=== PATIENT | male | born 1945 | race Caucasian/White ===

== ENCOUNTER 2016-08-21 17:43 | Emergency (ER) | payer MEDICARE, BC ==
--- NOTE | 2016-08-21 18:50 | EDM.PDOC ---
ED HPI GENERAL MEDICAL PROBLEM - General Chief Complaint: Gastrointestinal Problem Stated Complaint: BLACK STOOLS Time Seen by Provider: 08/21/16 17:58 Source of Information: Reports: Patient, Family, Old Records, RN Notes Reviewed History Limitations: Reports: No Limitations - History of Present Illness INITIAL COMMENTS - FREE TEXT/NARRATIVE: 71-year-old gentleman presents emergency department day complaint of black tarry stools, and he had an event approximately 3 weeks ago he states his bowel movements have returned to normal he is asymptomatic at this time - Related Data Allergies Allergy/AdvReac Type Severity Reaction Status Date / Time No Known Allergies Allergy Verified 01/05/15 18:59 Home Meds: Home Meds Betamethasone/Propylene Glyc [Diprolene 0.05%] 1 applic TP BID PRN 02/02/13 [ History] Calcium Citrate/Vitamin D3 [Calcium Citrate - Vit D Caplet] 1 tab PO BID [History] Cyanocobalamin (Vitamin B12) [Vitamin B12] 1,000 mcg SL DAILY 02/02/13 [History] Doxazosin Mesylate [Cardura] 2 mg PO DAILY 02/02/13 [History] Lovastatin 80 mg PO BEDTIME 02/02/13 [History] Metoprolol Tartrate [Lopressor] 12.5 mg PO BID 02/02/13 [History] Multivitamin [Chewable Multi Vitamin] 1 tab PO BID 02/02/13 [History] Nitroglycerin [Nitrostat] 0.4 mg SL ASDIRECTED 02/02/13 [History] PARoxetine [Paxil] 40 mg PO DAILY 02/02/13 [History] Triamcinolone Acetonide [Kenalog 0.1% Crm] 1 applic TP ASDIRECTED PRN 02/02/13 [ History] Vitamin B Complex 1 each PO DAILY 02/02/13 [History] Warfarin [Coumadin] 2.5 mg PO ASDIRECTED 02/02/13 [History] Warfarin [Coumadin] 5 mg PO DAILY 02/02/13 [History] metFORMIN [Glucophage] 1,000 mg PO BIDM 02/02/13 [History] Cholecalciferol (Vitamin D3) [Vitamin D-3] 2,000 unit PO ASDIRECTED 04/09/14 [ History] Betamethasone/Propylene Glyc [Diprolene 0.05%] 1 applic TOP BID 08/21/16 [ History] Past Medical History HEENT History: Reports: Hard of Hearing Cardiovascular History: Reports: Bypass, Hypertension Genitourinary History: Reports: Other (See Below) Other Genitourinary History: renal failure Neurological History: Reports: CVA, Neuropathy, Diabetic Psychiatric History: Reports: Depression Endocrine/Metabolic History: Reports: Diabetes, Type II - Infectious Disease History Infectious Disease History: Reports: Other (See Below) Other Infectious Disease History: unknown - Past Surgical History HEENT Surgical History: Reports: Tonsillectomy GI Surgical History: Reports: Bariatric Procedure, Hernia Repair/Other Social & Family History - Tobacco Use Smoking Status *Q: Never Smoker Second Hand Smoke Exposure: No - Caffeine Use Caffeine Use: Reports: Soda - Alcohol Use Days Per Week of Alcohol Use: 0 - Recreational Drug Use Recreational Drug Use: No ED ROS GENERAL - Review of Systems Review Of Systems: See Below Constitutional: Reports: No Symptoms Respiratory: Reports: No Symptoms Cardiovascular: Reports: No Symptoms GI/Abdominal: Reports: Black Stool : Reports: No Symptoms Musculoskeletal: Reports: No Symptoms Skin: Reports: No Symptoms ED EXAM, GI/ABD - Physical Exam Exam: See Below Exam Limited By: No Limitations General Appearance: Alert, WD/WN, No Apparent Distress GI/Abdominal: Soft, Non-Tender, No Organomegaly, No Distention, No Abnormal Bruit, No Mass Rectal (Males) Exam: Normal Exam, Normal Rectal Tone, Prostate Normal. No: Black Stool, Bloody Stool, Fecal Impaction, Hemorrhoids, Mass, Prostate Nodule, Rectal Fissure, Tenderness Course - Vital Signs Last Recorded V/S: Last Vital Signs Temp 96.8 F 08/21/16 17:59 Pulse 56 L 08/21/16 19:39 Resp 16 08/21/16 19:39 BP 153/73 H 08/21/16 19:39 Pulse Ox 97 08/21/16 19:39 - Orders/Labs/Meds Labs: Laboratory Tests 08/21/16 08/21/16 Range/Units 19:03 19:03 WBC 8.0 (4.5-11.0) K/uL RBC 4.31 (4.30-5.90) M/uL Hgb 10.2 L D (12.0-15.0) g/dL Hct 33.4 L (40.0-54.0) % MCV 78 L (80-98) fL MCH 24 L (27-31) pg MCHC 31 L (32-36) % Plt Count 243 (150-400) K/uL Neut % (Auto) 45 (36-66) % Lymph % (Auto) 40 (24-44) % [place] % (Auto) 9 H (2-6) % Eos % (Auto) 6 H (2-4) % Baso % (Auto) 1 (0-1) % PT 32.1 H (9.5-12.0) sec INR 2.93 H (0.80-1.20) Departure - Departure Time of Disposition: 20:00 Disposition: Home, Self-Care 01 Condition: good Clinical Impression: Black stools - Discharge Information Forms: ED Department Discharge Additional Instructions: Please followup with your primary care provider in the next 5-7 days for reevaluation would recommend workup for anemia with an EGD and colonoscopy in the future - Assessment/Plan Plan: Assessment Acuity = acute Site and laterality = black tarry stools Etiology = unclear etiology Manifestations = none Location of injury = home Lab values = hemoglobin low at 10.2 consistent micro-chromic anemia INR therapeutic at 2.93 occult blood diagnostic stool sample negative Plan I did review lab work and stool card results with him recommended he follow up with his primary care provider for further evaluation of his anemia recommend EGD and colonoscopy in the future Patient was in agreement with the plan all questions were answered, they were instructed to return to the emergency department or call for worsening symptoms. This note was dictated using @Pay voice recognition software please call with any questions.
[2016-08-21 19:40] VITALS: BP 153/73
== END 2016-08-21 20:20 | disposition home or self-care (01) ==
LOC: JP.ED 17:43
DX: K92.1 Melena (principal); I10 Essential (primary) hypertension; F32.9 Major depressive disorder, single episode, unspecified; E11.40 Type 2 diabetes mellitus with diabetic neuropathy, unspecified; Z79.01 Long term (current) use of anticoagulants; Z79.899 Other long term (current) drug therapy; Z98.84 Bariatric surgery status; Z98.890 Other specified postprocedural states
CPT/HCPCS: 36415; 82272; 85025; 85610; 99283; 99284

== ENCOUNTER 2016-09-12 09:32 | Day surgery (SDC) | payer MEDICARE, BC ==
[2016-09-12] MEDS ORDERED: Lactated Ringers 1,000 ML IV SCH (10:15)
[2016-09-12] MEDS ORDERED: Midazolam 1 MG/ML 2 ML SDV ONE (12:15)
[2016-09-12] MEDS ORDERED: fentaNYL 100 MCG/2 ML SDV ONE (12:15)
[2016-09-12] MEDS ORDERED: Propofol 200 MG/20 ML SDV ONE (12:15)
[2016-09-12 13:46] VITALS: BP 125/70
--- NOTE | 2016-09-13 07:21 | OR ---
DATE OF PROCEDURE: 09/12/2016 PREOPERATIVE DIAGNOSIS: History of colon polyps. POSTOPERATIVE DIAGNOSIS: Small cecal polyp, diverticulosis, history of colon polyps, poor colonoscopy prep. PROCEDURE: Colonoscopy to the cecum with biopsy resection of a small cecal polyp. SURGEON: Francisco Shelton MD. ANESTHESIA: IV anesthesia with monitored anesthesia care. INDICATIONS: This 71-year-old white male is referred for a colonoscopy because of a history of colon polyps. He is unsure when his last colonoscopic exam was performed. I counseled him for the procedure including risks and alternatives, and he gave his informed consent to proceed. DESCRIPTION OF PROCEDURE: The patient was placed in the left lateral decubitus position. IV anesthesia was administered by the Anesthesia Service. Time-out was held. A rectal exam was performed, which was unremarkable. The flexible video Olympus colonoscope was introduced through his anus, up his rectum, and out his colon all the way to the cecum. The prep was poor. Once the cecum was reached, the scope was slowly withdrawn examining the mucosa throughout. In the cecum, we saw a small polyp which was removed with a couple bites of the biopsy forceps. The scope was withdrawn further with no other lesions noted until we reached the left colon. Here and in the sigmoid colon, we saw multiple diverticula. There was no bleeding or inflammation associated with any of them. No other lesions were noted. The scope was retroflexed in the rectum with the distal rectum appearing unremarkable. The scope was straightened and removed. He tolerated the procedure well. Francisco Shelton MD /[id number] [place]
== END 2016-09-12 14:25 | disposition home or self-care (01) ==
LOC: JP.SDS 09:32
PROVIDERS: ATTEND Surgery
DX: Z12.11 Encounter for screening for malignant neoplasm of colon (principal); D12.0 Benign neoplasm of cecum; K57.30 Diverticulosis of large intestine without perforation or abscess without bleeding; I25.10 Atherosclerotic heart disease of native coronary artery without angina pectoris; I10 Essential (primary) hypertension; E11.9 Type 2 diabetes mellitus without complications; E78.5 Hyperlipidemia, unspecified; G47.33 Obstructive sleep apnea (adult) (pediatric)
CPT/HCPCS: 45380; J2250; J2704; J3010; 88305

== ENCOUNTER 2016-11-27 20:51 | Emergency (ER) | payer MEDICARE, BC ==
[2016-11-27 21:14] VITALS: BP 117/65
--- NOTE | 2016-11-27 22:09 | EDM.PDOC ---
ED HPI GENERAL MEDICAL PROBLEM - General Chief Complaint: Lower Extremity Injury/Pain Stated Complaint: L LOWER LEG PAIN Time Seen by Provider: 11/27/16 21:30 Source of Information: Reports: Patient History Limitations: Reports: No Limitations - History of Present Illness INITIAL COMMENTS - FREE TEXT/NARRATIVE: 71-year-old male has felt a somewhat firm, tender, and slightly reddened area on the back of his left medial proximal calf for the last 24 hours. He has no popliteal pain or distal edema. He is on Coumadin chronically but has not had an INR checked for 3 months. He has no other symptoms such as shortness of breath, abdominal pain, fever or chills or recent illness. There's been no trauma to the leg. Onset: Gradual (Over the past 24 hours) Location: Reports: Lower Extremity, Left Quality: Reports: Sharp (With palpation) Severity: Mild Associated Symptoms: Reports: No Other Symptoms left lower leg Pain Score (Numeric/FACES): 5 - Related Data Allergies Allergy/AdvReac Type Severity Reaction Status Date / Time No Known Allergies Allergy Verified 11/27/16 21:34 Home Meds: Home Meds Betamethasone/Propylene Glyc [Diprolene 0.05%] 1 applic TP BID PRN 02/02/13 [ History] Calcium Citrate/Vitamin D3 [Calcium Citrate - Vit D Caplet] 1 tab PO BID [History] Cyanocobalamin (Vitamin B12) [Vitamin B12] 1,000 mcg SL DAILY 02/02/13 [History] Doxazosin Mesylate [Cardura] 2 mg PO DAILY 02/02/13 [History] Lovastatin 80 mg PO BEDTIME 02/02/13 [History] Metoprolol Tartrate [Lopressor] 12.5 mg PO BID 02/02/13 [History] Multivitamin [Chewable Multi Vitamin] 1 tab PO BID 02/02/13 [History] Nitroglycerin [Nitrostat] 0.4 mg SL ASDIRECTED 02/02/13 [History] PARoxetine [Paxil] 40 mg PO DAILY 02/02/13 [History] Triamcinolone Acetonide [Kenalog 0.1% Crm] 1 applic TP ASDIRECTED PRN 02/02/13 [ History] Vitamin B Complex 1 each PO DAILY 02/02/13 [History] Warfarin [Coumadin] 2.5 mg PO ASDIRECTED 02/02/13 [History] Warfarin [Coumadin] 5 mg PO ASDIRECTED 02/02/13 [History] metFORMIN [Glucophage] 1,000 mg PO BIDM 02/02/13 [History] Cholecalciferol (Vitamin D3) [Vitamin D-3] 2,000 unit PO ASDIRECTED 04/09/14 [ History] Betamethasone/Propylene Glyc [Diprolene 0.05%] 1 applic TOP BID 08/21/16 [ History] Aspirin [Children's Aspirin] 81 mg PO DAILY 09/03/16 [History] Past Medical History HEENT History: Reports: Hard of Hearing Cardiovascular History: Reports: Bypass, High Cholesterol, Hypertension Respiratory History: Reports: None Gastrointestinal History: Reports: Colon Polyp Genitourinary History: Reports: None Other Genitourinary History: renal failure Musculoskeletal History: Reports: Arthritis Neurological History: Reports: CVA, Neuropathy, Diabetic Psychiatric History: Reports: Depression Endocrine/Metabolic History: Reports: Diabetes, Type II Hematologic History: Reports: B12 Deficiency Immunologic History: Reports: None Oncologic (Cancer) History: Reports: None Dermatologic History: Reports: None - Infectious Disease History Infectious Disease History: Reports: None Other Infectious Disease History: unknown - Past Surgical History Head Surgeries/Procedures: Reports: None HEENT Surgical History: Reports: Tonsillectomy Cardiovascular Surgical History: Reports: Coronary Artery Bypass Respiratory Surgical History: Reports: None GI Surgical History: Reports: Bariatric Procedure, Colonoscopy, Hernia Repair/ Other Male Surgical History: Reports: None Endocrine Surgical History: Reports: None Neurological Surgical History: Reports: None Musculoskeletal Surgical History: Reports: Knee Replacement Oncologic Surgical History: Reports: None Dermatological Surgical History: Reports: None Social & Family History - Tobacco Use Smoking Status *Q: Never Smoker Second Hand Smoke Exposure: No - Caffeine Use Caffeine Use: Reports: Soda - Alcohol Use Days Per Week of Alcohol Use: 0 - Recreational Drug Use Recreational Drug Use: No Review of Systems - Review of Systems Review Of Systems: See Below Constitutional: Denies: Fever Mouth/Throat: Denies: Bleeding Respiratory: Denies: Shortness of Breath Cardiovascular: Denies: Chest Pain, Palpitations Genitourinary: Denies: Hematuria Neurological: Reports: No Symptoms Psychiatric: Reports: No Symptoms ED EXAM, GENERAL - Physical Exam Exam: See Below Exam Limited By: No Limitations General Appearance: Alert, No Apparent Distress Respiratory/Chest: No Respiratory Distress Extremities: Other (Exam was otherwise limited to the lower extremities. The posterior lower legs were asymmetric with a slight increased diameter of the proximal calf on the left side. The ankles and feet were symmetric. On palpation there was a firmness and tenderness around 3 x 2 cm and slightly reddened area on the proximal medial left calf.) Course - Vital Signs Last Recorded V/S: Last Vital Signs Temp 96.7 F 11/27/16 21:13 Pulse 64 11/27/16 21:13 Resp 16 11/27/16 21:13 BP 117/65 11/27/16 21:13 Pulse Ox 99 11/27/16 21:13 - Orders/Labs/Meds Labs: Laboratory Tests 11/27/16 Range/Units 22:05 PT 55.3 H (9.5-12.0) sec INR 4.84 H* (0.80-1.20) - Re-Assessments/Exams Free Text/Narrative Re-Assessment/Exam: 11/27/16 22:08 An INR was obtained. Departure - Departure Time of Disposition: 23:01 Disposition: Home, Self-Care 01 Condition: Good Clinical Impression: Supratherapeutic INR, Superficial thrombophlebitis of left leg - Discharge Information Instructions: Prothrombin Time, International Normalized Ratio Test, Phlebitis , [id number] Referrals: Oseas Mckeon MD [Primary Care Provider] - Forms: ED Department Discharge Care Plan Goals: Return tomorrow morning for an ultrasound of the left leg, followed by a visit to the Coumadin clinic. Do not take any more Coumadin until you are instructed by the Coumadin clinic.
== END 2016-11-27 23:00 | disposition home or self-care (01) ==
LOC: JP.ED 20:51
DX: I80.02 Phlebitis and thrombophlebitis of superficial vessels of left lower extremity (principal); I10 Essential (primary) hypertension; E78.00 Pure hypercholesterolemia, unspecified; M19.90 Unspecified osteoarthritis, unspecified site; E11.40 Type 2 diabetes mellitus with diabetic neuropathy, unspecified; F32.9 Major depressive disorder, single episode, unspecified; Z95.1 Presence of aortocoronary bypass graft; Z96.659 Presence of unspecified artificial knee joint; Z98.890 Other specified postprocedural states; Z79.01 Long term (current) use of anticoagulants; Z79.82 Long term (current) use of aspirin; Z79.84 Long term (current) use of oral hypoglycemic drugs; Z79.899 Other long term (current) drug therapy
CPT/HCPCS: 36415; 85610; 99284

== ENCOUNTER 2016-12-01 01:22 | Emergency (ER) | payer MEDICARE, BC ==
--- NOTE | 2016-12-01 02:27 | EDM.PDOC ---
ED HPI GENERAL MEDICAL PROBLEM - General Chief Complaint: Lower Extremity Injury/Pain Stated Complaint: LEFT LEG PAIN Time Seen by Provider: 12/01/16 01:49 Source of Information: Reports: Patient, Old Records, RN Notes Reviewed History Limitations: Reports: No Limitations - History of Present Illness INITIAL COMMENTS - FREE TEXT/NARRATIVE: 71 year old male with hx of diabetes type 2, CAD, s/p CABG and hx of CVA taking ASA, coumadin,metoprolol, metformin. Earlier this week with painful swelling in left lower leg. Seen in ED with diagnosis of probable hematoma of left lower leg confirmed by Ultrasound the next day. His INR was supratherapeutic at 4. He was asked to hold his coumadin. In INR clinic yesterday, INR was still elevated over 6. He has no other bleeding in stool or urine. Comes to ED tonite concerned that his lower leg is more swollen with more bruising into left ankle area. This area is swollen but not painful. The leg remains cool without redness or heat. He otherwise is feeling well without fever, chills, chest pain or shortness of breath. He has a planned INR clinic coming up this coming Saturday , in 2 days. Duration: Getting Worse Location: Reports: Lower Extremity, Left Quality: Reports: Dull, Pressure Severity: Mild Improves with: Reports: Heat Therapy, Other (elevation) Associated Symptoms: Reports: No Other Symptoms left leg Pain Score (Numeric/FACES): 5 - Related Data Allergies Allergy/AdvReac Type Severity Reaction Status Date / Time No Known Allergies Allergy Verified 11/27/16 21:34 Home Meds: Home Meds Calcium Citrate/Vitamin D3 [Calcium Citrate - Vit D Caplet] 1 tab PO BID [History] Cyanocobalamin (Vitamin B12) [Vitamin B12] 1,000 mcg SL DAILY 02/02/13 [History] Doxazosin Mesylate [Cardura] 2 mg PO DAILY 02/02/13 [History] Lovastatin 80 mg PO BEDTIME 02/02/13 [History] Multivitamin [Chewable Multi Vitamin] 1 tab PO BID 02/02/13 [History] Nitroglycerin [Nitrostat] 0.4 mg SL ASDIRECTED 02/02/13 [History] PARoxetine [Paxil] 40 mg PO DAILY 02/02/13 [History] Triamcinolone Acetonide [Kenalog 0.1% Crm] 1 applic TP ASDIRECTED PRN 02/02/13 [ History] Vitamin B Complex 1 each PO DAILY 02/02/13 [History] Warfarin [Coumadin] 2.5 mg PO ASDIRECTED 02/02/13 [History] Warfarin [Coumadin] 5 mg PO ASDIRECTED 02/02/13 [History] metFORMIN [Glucophage] 1,000 mg PO BIDM 02/02/13 [History] Cholecalciferol (Vitamin D3) [Vitamin D-3] 2,000 unit PO ASDIRECTED 04/09/14 [ History] Betamethasone/Propylene Glyc [Diprolene 0.05%] 1 applic TOP BID 08/21/16 [ History] Aspirin [Children's Aspirin] 81 mg PO DAILY 09/03/16 [History] Metoprolol Tartrate [Metoprolol Tartrate] 12.5 mg PO BID 12/01/16 [History] Past Medical History HEENT History: Reports: Hard of Hearing Cardiovascular History: Reports: Bypass, High Cholesterol, Hypertension Respiratory History: Reports: None Gastrointestinal History: Reports: Colon Polyp Genitourinary History: Reports: None Other Genitourinary History: renal failure Musculoskeletal History: Reports: Arthritis Neurological History: Reports: CVA, Neuropathy, Diabetic Psychiatric History: Reports: Depression Endocrine/Metabolic History: Reports: Diabetes, Type II Hematologic History: Reports: B12 Deficiency Immunologic History: Reports: None Oncologic (Cancer) History: Reports: None Dermatologic History: Reports: None - Infectious Disease History Infectious Disease History: Reports: None Other Infectious Disease History: unknown - Past Surgical History Head Surgeries/Procedures: Reports: None HEENT Surgical History: Reports: Tonsillectomy Cardiovascular Surgical History: Reports: Coronary Artery Bypass Respiratory Surgical History: Reports: None GI Surgical History: Reports: Bariatric Procedure, Colonoscopy, Hernia Repair/ Other Male Surgical History: Reports: None Endocrine Surgical History: Reports: None Neurological Surgical History: Reports: None Musculoskeletal Surgical History: Reports: Knee Replacement Oncologic Surgical History: Reports: None Dermatological Surgical History: Reports: None Social & Family History - Tobacco Use Smoking Status *Q: Never Smoker Second Hand Smoke Exposure: No - Caffeine Use Caffeine Use: Reports: None - Alcohol Use Days Per Week of Alcohol Use: 0 - Recreational Drug Use Recreational Drug Use: No Review of Systems - Review of Systems Review Of Systems: See Below Constitutional: Reports: No Symptoms Respiratory: Reports: No Symptoms Cardiovascular: Reports: No Symptoms GI/Abdominal: Reports: No Symptoms Musculoskeletal: Reports: Leg Pain, Other (swelling of lower leg with bruising) Skin: Reports: Bruising Neurological: Reports: No Symptoms Psychiatric: Reports: No Symptoms ED EXAM, GENERAL - Physical Exam Exam: See Below Exam Limited By: No Limitations General Appearance: Alert, No Apparent Distress Respiratory/Chest: No Respiratory Distress, Lungs Clear, Normal Breath Sounds Cardiovascular: Other (sounds like bigeminy) GI/Abdominal: Normal Bowel Sounds, Soft Extremities: Other (area of tenderness with some swelling on back of calf. Area of bruising into back of knee with cool bruising into lower ankle. increased edema in lower leg, non-pitting. Pulses equal.) Neurological: Alert, Oriented, CN II-XII Intact Psychiatric: Normal Affect, Normal Mood Course - Vital Signs Last Recorded V/S: Last Vital Signs Temp 35.7 C 12/01/16 01:42 Pulse 74 12/01/16 01:42 Resp 16 12/01/16 01:42 BP 137/74 12/01/16 01:42 Pulse Ox 100 12/01/16 01:42 - Re-Assessments/Exams Free Text/Narrative Re-Assessment/Exam: 71 year old male presents to ED with increased swelling in left lower leg with a known hx of hematoma, likely traumatic with supratherapeutic INR. Exam is showing some increased lower leg edema likely due to the hematoma breakdown, with migration of swelling due to gravity. There is no evidence of infection. 12/01/16 02:35 Departure - Departure Time of Disposition: 02:31 Disposition: Home, Self-Care 01 Condition: Good Clinical Impression: Supratherapeutic INR Leg hematoma Qualifiers: Encounter type: subsequent encounter Laterality: left Qualified Code(s): S80.12XD - Contusion of left lower leg, subsequent encounter - Discharge Information Referrals: Oseas Mckeon MD [Primary Care Provider] - Additional Instructions: Continue to elevate leg as able. Plan to be seen in INR as scheduled. Continue to hold the coumadin for now.
[2016-12-01 02:52] VITALS: BP 120/70
== END 2016-12-01 02:10 | disposition home or self-care (01) ==
LOC: JP.ED 01:22
DX: S80.12XD Contusion of left lower leg, subsequent encounter (principal); R79.1 Abnormal coagulation profile; E78.00 Pure hypercholesterolemia, unspecified; I10 Essential (primary) hypertension; I25.10 Atherosclerotic heart disease of native coronary artery without angina pectoris; E11.40 Type 2 diabetes mellitus with diabetic neuropathy, unspecified; Z86.73 Personal history of transient ischemic attack (TIA), and cerebral infarction without residual deficits; Z95.1 Presence of aortocoronary bypass graft; Z98.890 Other specified postprocedural states; Z98.84 Bariatric surgery status; Z96.659 Presence of unspecified artificial knee joint; Z79.82 Long term (current) use of aspirin; Z79.01 Long term (current) use of anticoagulants; Z79.899 Other long term (current) drug therapy; Z79.84 Long term (current) use of oral hypoglycemic drugs; X58.XXXD Exposure to other specified factors, subsequent encounter
CPT/HCPCS: 99283

== ENCOUNTER 2016-12-03 12:52 | Emergency (ER) | payer MEDICARE, BC ==
[2016-12-03 13:09] VITALS: BP 88/55
--- NOTE | 2016-12-03 13:25 | EDM.PDOC ---
ED HPI GENERAL MEDICAL PROBLEM - General Chief Complaint: Neuro Symptoms/Deficits Stated Complaint: BROUGHT FROM THE CLINIC Time Seen by Provider: 12/03/16 13:15 Source of Information: Reports: Patient, Provider, Other (Friend) - History of Present Illness INITIAL COMMENTS - FREE TEXT/NARRATIVE: 71-year-old male went in the clinic today to recheck a hematoma that has developed on his left lower leg, it's tender and bruised and he was told that it likely will just have to resolve which made him very anxious. He was complaining of a significant headache and his friend that he was confused so he sent over to the emergency room for a CT scan of his head. He is not complaining of any peripheral weakness. He is very anxious, hyperventilating with an O2 saturation of 100%. No nausea or vomiting. His INR is normalized and no longer hypertherapeutic. He is very anxious because does have a history of a previous stroke, is somewhat tearful and says "I don't want another one". Severity: Moderate Associated Symptoms: Reports: Confusion, Malaise. Denies: Chest Pain, Shortness of Breath Headache Pain Score (Numeric/FACES): 8 - Related Data Allergies Allergy/AdvReac Type Severity Reaction Status Date / Time No Known Allergies Allergy Verified 11/27/16 21:34 Home Meds: Home Meds Calcium Citrate/Vitamin D3 [Calcium Citrate - Vit D Caplet] 1 tab PO BID [History] Cyanocobalamin (Vitamin B12) [Vitamin B12] 1,000 mcg SL DAILY 02/02/13 [History] Doxazosin Mesylate [Cardura] 2 mg PO DAILY 02/02/13 [History] Lovastatin 80 mg PO BEDTIME 02/02/13 [History] Multivitamin [Chewable Multi Vitamin] 1 tab PO BID 02/02/13 [History] Nitroglycerin [Nitrostat] 0.4 mg SL ASDIRECTED 02/02/13 [History] PARoxetine [Paxil] 40 mg PO DAILY 02/02/13 [History] Triamcinolone Acetonide [Kenalog 0.1% Crm] 1 applic TP ASDIRECTED PRN 02/02/13 [ History] Vitamin B Complex 1 each PO DAILY 02/02/13 [History] Warfarin [Coumadin] 2.5 mg PO ASDIRECTED 02/02/13 [History] Warfarin [Coumadin] 5 mg PO ASDIRECTED 02/02/13 [History] metFORMIN [Glucophage] 1,000 mg PO BIDM 02/02/13 [History] Cholecalciferol (Vitamin D3) [Vitamin D-3] 2,000 unit PO ASDIRECTED 04/09/14 [ History] Betamethasone/Propylene Glyc [Diprolene 0.05%] 1 applic TOP BID 08/21/16 [ History] Aspirin [Children's Aspirin] 81 mg PO DAILY 09/03/16 [History] Metoprolol Tartrate [Metoprolol Tartrate] 12.5 mg PO BID 12/01/16 [History] Past Medical History HEENT History: Reports: Hard of Hearing Cardiovascular History: Reports: Bypass, High Cholesterol, Hypertension Respiratory History: Reports: None Gastrointestinal History: Reports: Colon Polyp Genitourinary History: Reports: None Other Genitourinary History: renal failure Musculoskeletal History: Reports: Arthritis Neurological History: Reports: CVA, Neuropathy, Diabetic, TIA Psychiatric History: Reports: Depression Endocrine/Metabolic History: Reports: Diabetes, Type II Hematologic History: Reports: B12 Deficiency Immunologic History: Reports: None Oncologic (Cancer) History: Reports: None Dermatologic History: Reports: None - Infectious Disease History Infectious Disease History: Reports: None Other Infectious Disease History: unknown - Past Surgical History Head Surgeries/Procedures: Reports: None HEENT Surgical History: Reports: Tonsillectomy Cardiovascular Surgical History: Reports: Coronary Artery Bypass Respiratory Surgical History: Reports: None GI Surgical History: Reports: Bariatric Procedure, Colonoscopy, Hernia Repair/ Other Male Surgical History: Reports: None Endocrine Surgical History: Reports: None Neurological Surgical History: Reports: None Musculoskeletal Surgical History: Reports: Knee Replacement Oncologic Surgical History: Reports: None Dermatological Surgical History: Reports: None Social & Family History - Tobacco Use Smoking Status *Q: Never Smoker Second Hand Smoke Exposure: No - Caffeine Use Caffeine Use: Reports: Soda - Alcohol Use Days Per Week of Alcohol Use: 0 - Recreational Drug Use Recreational Drug Use: No ED ROS GENERAL - Review of Systems Review Of Systems: See Below Constitutional: Reports: Malaise. Denies: Fever, Chills Respiratory: Denies: Shortness of Breath Cardiovascular: Denies: Chest Pain GI/Abdominal: Denies: Abdominal Pain, Nausea, Vomiting Skin: Reports: Pallor Neurological: Reports: Confusion, Headache Psychiatric: Reports: Anxiety ED EXAM, GENERAL - Physical Exam Exam: See Below Exam Limited By: No Limitations General Appearance: Alert, Anxious Eye Exam: Bilateral Eye: EOMI, PERRL Respiratory/Chest: No Respiratory Distress, Lungs Clear Cardiovascular: Irregularly Irregular GI/Abdominal: Non-Tender Extremities: Other (Left lower family has bruising through gastrocnemius area into the heel with some moderate swelling. It is tender to palpation.) Neurological: Alert, Oriented, No Motor/Sensory Deficits Psychiatric: Anxious Skin Exam: Warm, Dry, Other (Considerable ecchymosis to the left lower extremity ) Course - Vital Signs Last Recorded V/S: Last Vital Signs Temp 97.0 F 12/03/16 13:11 Pulse 43 L 12/03/16 13:11 Resp 18 12/03/16 13:11 BP 88/55 L 12/03/16 13:11 Pulse Ox 100 12/03/16 13:11 - Re-Assessments/Exams Free Text/Narrative Re-Assessment/Exam: 12/03/16 13:25 CT of the head without contrast was obtained. 12/03/16 13:53 CT of the head was stable, patient was reassured and his symptoms started to improve as he calm down. Some pain medication will be called in by his primary provider, I recommended a support stocking for his lower extremity and cool compresses may be beneficial. Elevation as well. If his mentation doesn't improve over the next few days they can return for recheck. Departure - Departure Time of Disposition: 14:13 Disposition: Home, Self-Care 01 Condition: Fair Clinical Impression: Hyperventilation syndrome Leg hematoma Qualifiers: Encounter type: initial encounter Laterality: left Qualified Code(s): S80.12XA - Contusion of left lower leg, initial encounter - Discharge Information Instructions: Hyperventilation, Hematoma, [id number] Referrals: Oseas Mckeon MD [Primary Care Provider] - Forms: ED Department Discharge Care Plan Goals: Elevate the leg, compression with long leg stockings may help, and cool compresses or ice may also be beneficial. Increase activity as tolerated and use pain medication as prescribed. Recheck at any time if you feel you are worsening or have other concerns.
--- NOTE | 2016-12-03 13:49 | CT ---
CT head Indication: Headache. Comparison: 01/05/2015. Total DOP 675. Findings: Old left MCA distribution infarct with encephalomalacia is similar. Frontal atrophy. No hem orrhage. Old left basal ganglia lacunar infarct. Calvarium intact. Impression: 1. Stable head CT.
== END 2016-12-03 14:13 | disposition home or self-care (01) ==
LOC: JP.ED 12:52
DX: S80.12XA Contusion of left lower leg, initial encounter (principal); F45.8 Other somatoform disorders; I10 Essential (primary) hypertension; E78.00 Pure hypercholesterolemia, unspecified; F32.9 Major depressive disorder, single episode, unspecified; E11.40 Type 2 diabetes mellitus with diabetic neuropathy, unspecified; Z86.73 Personal history of transient ischemic attack (TIA), and cerebral infarction without residual deficits; Z95.1 Presence of aortocoronary bypass graft; Z98.84 Bariatric surgery status; M19.90 Unspecified osteoarthritis, unspecified site; Z98.890 Other specified postprocedural states; Z96.659 Presence of unspecified artificial knee joint; Z79.84 Long term (current) use of oral hypoglycemic drugs; Z79.82 Long term (current) use of aspirin; Z79.899 Other long term (current) drug therapy; X58.XXXA Exposure to other specified factors, initial encounter
CPT/HCPCS: 70450; 70450-26; 99283; 99284

== ENCOUNTER 2017-01-17 14:44 | Emergency (ER) | payer MEDICARE, BC ==
[2017-01-17 15:19] VITALS: BP 129/64
--- NOTE | 2017-01-17 16:06 | EDM.PDOC ---
ED HPI GENERAL MEDICAL PROBLEM - General Chief Complaint: ENT Problem Stated Complaint: BLEEDING S/P TEETH EXTRACTION Time Seen by Provider: 01/17/17 15:30 Source of Information: Reports: Patient History Limitations: Reports: No Limitations - History of Present Illness INITIAL COMMENTS - FREE TEXT/NARRATIVE: 72-year-old male who had numerous upper dental extractions today arrives with a bandage denture plate applied to the maxilla but he is still having some fairly persistent oozing under the plate. Onset: Gradual (He left the dentist's office 3 hours ago, started bleeding an hour ago) - Related Data Allergies Allergy/AdvReac Type Severity Reaction Status Date / Time No Known Allergies Allergy Verified 11/27/16 21:34 Home Meds: Home Meds Calcium Citrate/Vitamin D3 [Calcium Citrate - Vit D Caplet] 1 tab PO BID [History] Cyanocobalamin (Vitamin B12) [Vitamin B12] 1,000 mcg SL DAILY 02/02/13 [History] Doxazosin Mesylate [Cardura] 2 mg PO DAILY 02/02/13 [History] Lovastatin 80 mg PO BEDTIME 02/02/13 [History] Multivitamin [Chewable Multi Vitamin] 1 tab PO BID 02/02/13 [History] Nitroglycerin [Nitrostat] 0.4 mg SL ASDIRECTED 02/02/13 [History] PARoxetine [Paxil] 40 mg PO DAILY 02/02/13 [History] Vitamin B Complex 1 each PO DAILY 02/02/13 [History] Warfarin [Coumadin] 2.5 mg PO ASDIRECTED 02/02/13 [History] Warfarin [Coumadin] 5 mg PO ASDIRECTED 02/02/13 [History] metFORMIN [Glucophage] 1,000 mg PO BIDM 02/02/13 [History] Cholecalciferol (Vitamin D3) [Vitamin D-3] 2,000 unit PO ASDIRECTED 04/09/14 [ History] Betamethasone/Propylene Glyc [Diprolene 0.05%] 1 applic TOP BID 08/21/16 [ History] Aspirin [Children's Aspirin] 81 mg PO DAILY 09/03/16 [History] Metoprolol Tartrate [Metoprolol Tartrate] 12.5 mg PO BID 12/01/16 [History] Past Medical History HEENT History: Reports: Hard of Hearing Cardiovascular History: Reports: Bypass, High Cholesterol, Hypertension Respiratory History: Reports: None Gastrointestinal History: Reports: Colon Polyp Genitourinary History: Reports: None Other Genitourinary History: renal failure Musculoskeletal History: Reports: Arthritis Neurological History: Reports: CVA, Neuropathy, Diabetic, TIA Psychiatric History: Reports: Depression Endocrine/Metabolic History: Reports: Diabetes, Type II Hematologic History: Reports: B12 Deficiency Immunologic History: Reports: None Oncologic (Cancer) History: Reports: None Dermatologic History: Reports: None - Infectious Disease History Infectious Disease History: Reports: None Other Infectious Disease History: unknown - Past Surgical History Head Surgeries/Procedures: Reports: None HEENT Surgical History: Reports: Oral Surgery, Tonsillectomy Cardiovascular Surgical History: Reports: Coronary Artery Bypass Respiratory Surgical History: Reports: None GI Surgical History: Reports: Bariatric Procedure, Colonoscopy, Hernia Repair/ Other Male Surgical History: Reports: None Endocrine Surgical History: Reports: None Neurological Surgical History: Reports: None Musculoskeletal Surgical History: Reports: Knee Replacement Oncologic Surgical History: Reports: None Dermatological Surgical History: Reports: None Social & Family History - Tobacco Use Smoking Status *Q: Never Smoker Second Hand Smoke Exposure: No - Caffeine Use Caffeine Use: Reports: Soda - Alcohol Use Days Per Week of Alcohol Use: 0 - Recreational Drug Use Recreational Drug Use: No ED ROS ENT - Review of Systems Review Of Systems: See Below Constitutional: Denies: Fever HEENT: Denies: Nosebleed, Throat Pain Respiratory: Denies: Shortness of Breath Cardiovascular: Denies: Palpitations GI/Abdominal: Denies: Nausea, Vomiting ED EXAM, ENT - Physical Exam Exam: See Below Exam Limited By: No Limitations General Appearance: Alert, No Apparent Distress Mouth/Throat: Other (The bandage dentures were removed, the extraction sites look like they were clotting appropriately without any active bleeding.) Course - Vital Signs Last Recorded V/S: Last Vital Signs Temp 96.3 F 01/17/17 15:18 Pulse 58 L 01/17/17 15:18 Resp 16 01/17/17 15:18 BP 129/64 01/17/17 15:18 Pulse Ox 100 01/17/17 15:18 - Re-Assessments/Exams Free Text/Narrative Re-Assessment/Exam: 01/17/17 16:04 The patient gently swish and swallow with ice water. He was reexamined and I saw no active bleeding. The denture was reapplied, felt very poorly and he was having difficulty keeping it in place. I did discuss his situation with the dentist, and he will recheck him tomorrow morning. He can always return if bleeding returns and becomes concerning Departure - Departure Time of Disposition: 16:15 Disposition: Home, Self-Care 01 Condition: Good Clinical Impression: Postprocedural hemorrhage due to complication of oral surgery - Discharge Information Referrals: Oseas Mckeon MD [Primary Care Provider] - Forms: ED Department Discharge Care Plan Goals: Attempt to keep the dentures in place to apply gentle protection and pressure. Recheck tomorrow morning as scheduled. Return if bleeding restarts and cannot be controlled with ice water or gentle pressure.
== END 2017-01-17 16:15 | disposition home or self-care (01) ==
LOC: JP.ED 14:44
DX: K91.840 Postprocedural hemorrhage of a digestive system organ or structure following a digestive system procedure (principal); E78.00 Pure hypercholesterolemia, unspecified; I10 Essential (primary) hypertension; E11.40 Type 2 diabetes mellitus with diabetic neuropathy, unspecified; Z79.01 Long term (current) use of anticoagulants; Z79.899 Other long term (current) drug therapy; Z79.82 Long term (current) use of aspirin
CPT/HCPCS: 99283

== ENCOUNTER 2018-11-17 19:00 | Emergency (ER) | payer MEDICARE, BC ==
[2018-11-17 19:17] VITALS: BP 133/72
--- NOTE | 2018-11-17 19:29 | EDM.PDOC ---
ED HPI GENERAL MEDICAL PROBLEM - General Chief Complaint: Cardiovascular Problem Stated Complaint: A-FIB Time Seen by Provider: 11/17/18 19:16 Source of Information: Reports: Patient - History of Present Illness INITIAL COMMENTS - FREE TEXT/NARRATIVE: 73-year-old male with a history of previous CVA, coronary artery disease, type 2 diabetes mellitus and renal failure presents to the emergency department with vague symptoms of shortness of breath and dizziness. He felt well and went to [facility] and while there developed these symptoms. He contacted his friend Geoff brought him to the ER for further evaluation. This time patient denies shortness of breath and doesn't feel dizzy. He isn't able to describe the dizziness other than stating he was dizzy. He denies any nausea or vomiting. He had no sweating. He does have a fever or chills. He denies urinary symptoms. He denies polyuria or polydipsia. The patient has a history of atrial fibrillation and is taking an anticoagulant, Coumadin. He is also wearing a Holter monitor because of bradycardia. denies pain Pain Score (Numeric/FACES): 0 - Related Data Allergies Allergy/AdvReac Type Severity Reaction Status Date / Time No Known Allergies Allergy Verified 11/17/18 19:03 Home Meds: Home Meds Calcium Citrate/Vitamin D3 [Calcium Citrate - Vit D Caplet] 1 tab PO BID [History] Cyanocobalamin (Vitamin B12) [Vitamin B12] 1,000 mcg SL DAILY 02/02/13 [History] Doxazosin Mesylate [Cardura] 2 mg PO BEDTIME 02/02/13 [History] Lovastatin 80 mg PO BEDTIME 02/02/13 [History] Multivitamin [Chewable Multi Vitamin] 1 tab PO BID 02/02/13 [History] Nitroglycerin [Nitrostat] 0.4 mg SL ASDIRECTED 02/02/13 [History] PARoxetine [Paxil] 20 mg PO DAILY 02/02/13 [History] Vitamin B Complex 1 each PO DAILY 02/02/13 [History] metFORMIN [Glucophage] 1,000 mg PO BIDM 02/02/13 [History] Dabigatran Etexilate Mesylate [Pradaxa] 75 mg PO DAILY 01/07/18 [History] Ferrous Sulfate 325 mg PO BID 01/07/18 [History] Past Medical History HEENT History: Reports: Hard of Hearing, Impaired Vision Cardiovascular History: Reports: Bypass, High Cholesterol, Hypertension Respiratory History: Reports: Sleep Apnea Gastrointestinal History: Reports: Colon Polyp Genitourinary History: Reports: None Other Genitourinary History: renal failure Musculoskeletal History: Reports: Arthritis Neurological History: Reports: CVA, Neuropathy, Diabetic, TIA Psychiatric History: Reports: Depression Endocrine/Metabolic History: Reports: Diabetes, Type II Hematologic History: Reports: B12 Deficiency, Iron Deficiency Immunologic History: Reports: None Oncologic (Cancer) History: Reports: None Dermatologic History: Reports: None - Infectious Disease History Infectious Disease History: Reports: None Other Infectious Disease History: unknown - Past Surgical History Head Surgeries/Procedures: Reports: None HEENT Surgical History: Reports: Oral Surgery, Tonsillectomy Cardiovascular Surgical History: Reports: Coronary Artery Bypass Respiratory Surgical History: Reports: None GI Surgical History: Reports: Bariatric Procedure, Cholecystectomy, Colonoscopy , EGD, Hernia Repair/Other Other GI Surgeries/Procedures: bariatric procedure 2007? Male Surgical History: Reports: None Endocrine Surgical History: Reports: None Neurological Surgical History: Reports: None Musculoskeletal Surgical History: Reports: Knee Replacement Oncologic Surgical History: Reports: None Dermatological Surgical History: Reports: None Social & Family History - Family History Family Medical History: Noncontributory - Tobacco Use Smoking Status *Q: Never Smoker - Caffeine Use Caffeine Use: Reports: Soda - Recreational Drug Use Recreational Drug Use: No ED ROS GENERAL - Review of Systems Review Of Systems: See Below Constitutional: Denies: Fever, Chills, Weakness Respiratory: Reports: Shortness of Breath Cardiovascular: Reports: Lightheadedness. Denies: Chest Pain, Orthopnea Endocrine: Denies: Polydypsia, Polyuria GI/Abdominal: Denies: Diarrhea, Nausea : Reports: No Symptoms Skin: Denies: Rash Neurological: Denies: Difficulty Walking Psychiatric: Reports: Anxiety ED EXAM, GENERAL - Physical Exam Exam: See Below Exam Limited By: No Limitations General Appearance: Alert, WD/WN, No Apparent Distress Ears: Normal External Exam, Normal Canal Throat/Mouth: Normal Inspection Head: Atraumatic, Normocephalic Neck: Normal Inspection, Supple Respiratory/Chest: No Respiratory Distress, Normal Breath Sounds Cardiovascular: No JVD, No Murmur, Other (Irregular irregular rate and rhythm with normal heart rate of approximate 70 bpm. No murmurs or gallops.) Extremities: Normal Inspection, No Pedal Edema Psychiatric: Normal Affect, Normal Mood Course - Vital Signs Last Recorded V/S: Last Vital Signs Temp 36.5 C 11/17/18 19:17 Pulse 68 11/17/18 19:17 Resp 22 H 11/17/18 19:17 BP 133/72 11/17/18 19:17 Pulse Ox 98 11/17/18 19:17 - Orders/Labs/Meds Labs: Laboratory Tests 11/17/18 11/17/18 11/17/18 Range/Units 19:39 19:39 19:39 WBC 7.8 (4.5-11.0) K/uL RBC 4.70 (4.30-5.90) M/uL Hgb 14.8 D (12.0-15.0) g/dL Hct 43.7 (40.0-54.0) % MCV 93 (80-98) fL MCH 32 H (27-31) pg MCHC 34 (32-36) % Plt Count 207 (150-400) K/uL Neut % (Auto) 47 (36-66) % Lymph % (Auto) 38 (24-44) % Ness % (Auto) 10 H (2-6) % Eos % (Auto) 5 H (2-4) % Baso % (Auto) 1 (0-1) % PT 15.8 H (9.5-12.0) sec INR 1.50 H D (0.80-1.20) Sodium 140 (140-148) mmol/L Potassium 3.8 (3.6-5.2) mmol/L Chloride 107 (100-108) mmol/L Carbon Dioxide 24 (21-32) mmol/L Anion Gap 8.7 (5.0-14.0) mmol/L BUN 16 (7-18) mg/dL Creatinine 1.2 (0.8-1.3) mg/dL Est Cr Clr Drug Dosing 49.47 mL/min Estimated GFR (MDRD) 59 L (>60) Glucose 78 (74-106) mg/dL Calcium 8.9 (8.5-10.1) mg/dL Urine Color (YELLOW) Urine Appearance (CLEAR) Urine pH (5.0-8.0) Ur Specific Jackson (1.008-1.030) Urine Protein (NEGATIVE) mg/dL Urine Glucose (UA) (NEGATIVE) mg/dL Urine Ketones (NEGATIVE) mg/dL Urine Occult Blood (NEGATIVE) Urine Nitrite (NEGATIVE) Urine Bilirubin (NEGATIVE) Urine Urobilinogen (0.2-1.0) EU/dL Ur Leukocyte Esterase (NEGATIVE) Urine RBC (0-5) Urine WBC (0-5) Ur Epithelial Cells Amorphous Sediment Urine Bacteria Urine Mucus 11/17/18 Range/Units 21:09 WBC (4.5-11.0) K/uL RBC (4.30-5.90) M/uL Hgb (12.0-15.0) g/dL Hct (40.0-54.0) % MCV (80-98) fL MCH (27-31) pg MCHC (32-36) % Plt Count (150-400) K/uL Neut % (Auto) (36-66) % Lymph % (Auto) (24-44) % Ness % (Auto) (2-6) % Eos % (Auto) (2-4) % Baso % (Auto) (0-1) % PT (9.5-12.0) sec INR (0.80-1.20) Sodium (140-148) mmol/L Potassium (3.6-5.2) mmol/L Chloride (100-108) mmol/L Carbon Dioxide (21-32) mmol/L Anion Gap (5.0-14.0) mmol/L BUN (7-18) mg/dL Creatinine (0.8-1.3) mg/dL Est Cr Clr Drug Dosing mL/min Estimated GFR (MDRD) (>60) Glucose (74-106) mg/dL Calcium (8.5-10.1) mg/dL Urine Color Yellow (YELLOW) Urine Appearance Clear (CLEAR) Urine pH 5.5 (5.0-8.0) Ur Specific Jackson >= 1.030 (1.008-1.030) Urine Protein 30 H (NEGATIVE) mg/dL Urine Glucose (UA) Negative (NEGATIVE) mg/dL Urine Ketones Negative (NEGATIVE) mg/dL Urine Occult Blood Negative (NEGATIVE) Urine Nitrite Negative (NEGATIVE) Urine Bilirubin Negative (NEGATIVE) Urine Urobilinogen 0.2 (0.2-1.0) EU/dL Ur Leukocyte Esterase Negative (NEGATIVE) Urine RBC Not seen (0-5) Urine WBC 5-10 H (0-5) Ur Epithelial Cells Many Amorphous Sediment Not seen Urine Bacteria Not seen Urine Mucus Many - Re-Assessments/Exams Free Text/Narrative Re-Assessment/Exam: 11/17/18 19:33 History and examination done and orders placed. 11/17/18 20:38 His blood sugar is normal at 78, which is a bit low. He is getting toast and an OJ and then will be discharged home to follow up in the clinic. 11/17/18 21:29 He ambulated well in the department had no orthostatic symptoms. His urinalysis has 5-10 WBCs but no nitrites or leukocyte Estrace. He has a few epithelial cells so may be a contaminated specimen. I'll order a urine culture just to make sure. He will follow-up with his doctor on an as-needed basis. Departure - Departure Time of Disposition: 21:30 Disposition: Home, Self-Care 01 Condition: Good Clinical Impression: Lightheadedness Instructions: Near-Syncope Referrals: Oseas Mckeon MD [Primary Care Provider] - Forms: ED Department Discharge
--- NOTE | 2018-11-17 20:23 | CRLCR ---
INDICATION: Cough TECHNIQUE: Chest radiograph 2 views COMPARISON: None FINDINGS: Mediastinum: Previous median sternotomy and coronary artery bypass grafting (CABG) noted. There is an electronic device seen over the left chest wall. The heart silhouette is normal in size and morphology. Lung: Both lungs are unremarkable in appearance. No sign of pleural effusion seen. No pneumothorax is identified. IMPRESSION: 1. No acute cardiopulmonary disease is seen. Dictated by Michael Stubbs MD @ 11/17/2018 8:21:07 PM Dictated by: Michael Stubbs MD @ 11/17/2018 20:21:11 (Electronically Signed)
== END 2018-11-17 21:37 | disposition home or self-care (01) ==
LOC: JP.ED 19:00
DX: R42 Dizziness and giddiness (principal); I10 Essential (primary) hypertension; E11.40 Type 2 diabetes mellitus with diabetic neuropathy, unspecified; F32.9 Major depressive disorder, single episode, unspecified; E78.00 Pure hypercholesterolemia, unspecified; M19.90 Unspecified osteoarthritis, unspecified site; Z79.84 Long term (current) use of oral hypoglycemic drugs; Z79.899 Other long term (current) drug therapy; Z86.73 Personal history of transient ischemic attack (TIA), and cerebral infarction without residual deficits
CPT/HCPCS: 36415; 71046; 80048; 81001; 85025; 85610; 87086; 99284-25

== ENCOUNTER 2019-07-26 20:07 | Emergency (ER) | payer MEDICARE, BC ==
--- NOTE | 2019-07-26 20:38 | EDM.PDOC ---
ED HPI GENERAL MEDICAL PROBLEM - General Chief Complaint: Chest Pain Stated Complaint: [facility] Time Seen by Provider: 07/26/19 20:30 Source of Information: Reports: Patient, EMS History Limitations: Reports: No Limitations - History of Present Illness INITIAL COMMENTS - FREE TEXT/NARRATIVE: 74-year-old male with a history of coronary artery disease, bypass grafting years ago and recently a pacemaker placed, was playing [employer] when he developed a substernal upper chest discomfort. It only lasted a minute but it caused him to feel lightheaded and anxious and he "passed out briefly". When he came to his family was scared and called the ambulance, he did not want to come in but they insisted so he came in. He was given four low-dose aspirin in route, and EKG showed a paced rhythm and he had no symptoms on arrival and wanted to go home. He insisted the pain only lasted 1 to 2 minutes or less. Denies nausea or vomiting, no radiation of pain to his jaw or shoulder or arm, no diaphoresis. Onset: Sudden Duration: Minutes: (1 to 2 minutes) Location: Reports: Chest Associated Symptoms: Reports: Syncope, Weakness. Denies: Shortness of Breath Mid-Sternal Chest Pain Score (Numeric/FACES): 6 - Related Data Allergies Allergy/AdvReac Type Severity Reaction Status Date / Time No Known Allergies Allergy Verified 07/26/19 20:20 Home Meds: Home Meds Calcium Citrate/Vitamin D3 [Calcium Citrate - Vit D Caplet] 1 tab PO BID [History] Cyanocobalamin (Vitamin B12) [Vitamin B12] 1,000 mcg SL DAILY 02/02/13 [History] Doxazosin Mesylate [Cardura] 2 mg PO BEDTIME 02/02/13 [History] Lovastatin 80 mg PO BEDTIME 02/02/13 [History] Multivitamin [Chewable Multi Vitamin] 1 tab PO BID 02/02/13 [History] Nitroglycerin [Nitrostat] 0.4 mg SL ASDIRECTED PRN 02/02/13 [History] PARoxetine [Paxil] 20 mg PO DAILY 02/02/13 [History] Vitamin B Complex 1 each PO DAILY 02/02/13 [History] Ferrous Sulfate 325 mg PO BID 01/07/18 [History] Aspirin [Low Dose Aspirin EC] 81 mg PO DAILY 11/18/18 [History] Triamcinolone Acetonide [Triamcinolone Acetonide 0.1% Crm] 1 appful TOP ASDIRECTED PRN 11/18/18 [History] Warfarin [Coumadin] 1 tab PO ASDIRECTED 11/18/18 [History] Past Medical History HEENT History: Reports: Hard of Hearing, Impaired Vision Cardiovascular History: Reports: Bypass, High Cholesterol, Hypertension Other Cardiovascular History: External heart monitor placed October 23 2018 Respiratory History: Reports: Sleep Apnea Gastrointestinal History: Reports: Colon Polyp Genitourinary History: Reports: None Other Genitourinary History: renal failure Musculoskeletal History: Reports: Arthritis Neurological History: Reports: CVA, Neuropathy, Diabetic, TIA Psychiatric History: Reports: Depression Endocrine/Metabolic History: Reports: Diabetes, Type II Hematologic History: Reports: B12 Deficiency, Iron Deficiency Immunologic History: Reports: None Oncologic (Cancer) History: Reports: None Dermatologic History: Reports: None - Infectious Disease History Infectious Disease History: Reports: Chicken Pox Other Infectious Disease History: unknown - Past Surgical History Head Surgeries/Procedures: Reports: None HEENT Surgical History: Reports: Oral Surgery, Tonsillectomy Cardiovascular Surgical History: Reports: Coronary Artery Bypass Respiratory Surgical History: Reports: None GI Surgical History: Reports: Bariatric Procedure, Cholecystectomy, Colonoscopy , EGD, Hernia Repair/Other Other GI Surgeries/Procedures: bariatric procedure 2007? Male Surgical History: Reports: None Endocrine Surgical History: Reports: None Neurological Surgical History: Reports: None Musculoskeletal Surgical History: Reports: Knee Replacement Oncologic Surgical History: Reports: None Dermatological Surgical History: Reports: None Social & Family History - Family History Family Medical History: Noncontributory - Tobacco Use Smoking Status *Q: Never Smoker - Caffeine Use Caffeine Use: Reports: Soda - Recreational Drug Use Recreational Drug Use: No ED ROS GENERAL - Review of Systems Review Of Systems: See Below Constitutional: Denies: Fever, Chills HEENT: Denies: Sinus Problem, Vision Change Respiratory: Denies: Shortness of Breath Cardiovascular: Reports: Chest Pain. Denies: Palpitations GI/Abdominal: Denies: Abdominal Pain, Nausea, Vomiting Skin: Denies: Diaphoresis Neurological: Reports: Syncope, Weakness. Denies: Headache, Trouble Speaking, Change in Speech Psychiatric: Reports: Anxiety ED EXAM, GENERAL - Physical Exam Exam: See Below Exam Limited By: No Limitations General Appearance: Alert, No Apparent Distress Eye Exam: Bilateral Eye: Normal Inspection Head: Atraumatic Respiratory/Chest: No Respiratory Distress, Lungs Clear, Other (He has some mild discomfort to palpation of the upper chest but it is not the same pain) Cardiovascular: Regular Rate, Rhythm, Extra Beats GI/Abdominal: Soft, Non-Tender Extremities: No: Pedal Edema Neurological: Alert, Oriented, No Motor/Sensory Deficits Psychiatric: Flat Affect Skin Exam: Warm, Dry EKG INTERPRETATION EKG Interpretation Comments: EKG reviewed from EMS, paced rhythm which coordinates with his cardiac monitoring which also shows paced rhythm. An EKG was not repeated. CBC BMP and troponin were obtained, if these are normal patient will be allowed to go home. We also checked his INR. Course - Vital Signs Last Recorded V/S: Last Vital Signs Temp 97.2 F 07/26/19 20:23 Pulse 70 07/26/19 21:15 Resp 19 07/26/19 21:15 BP 119/73 07/26/19 21:15 Pulse Ox 95 07/26/19 21:15 - Orders/Labs/Meds Labs: Laboratory Tests 07/26/19 07/26/19 07/26/19 Range/Units 20:45 20:45 20:45 WBC 8.8 (4.5-11.0) K/uL RBC 4.89 (4.30-5.90) M/uL Hgb 14.9 (12.0-15.0) g/dL Hct 45.6 (40.0-54.0) % MCV 93 (80-98) fL MCH 31 (27-31) pg MCHC 33 (32-36) % Plt Count 201 (150-400) K/uL Neut % (Auto) 48 (36-66) % Lymph % (Auto) 35 (24-44) % Lynn % (Auto) 11 H (2-6) % Eos % (Auto) 7 H (2-4) % Baso % (Auto) 1 (0-1) % PT 29.0 H (9.5-12.0) sec INR 2.85 H (0.80-1.20) Sodium 142 (140-148) mmol/L Potassium 4.2 (3.6-5.2) mmol/L Chloride 108 (100-108) mmol/L Carbon Dioxide 23 (21-32) mmol/L Anion Gap 10.6 (5.0-14.0) mmol/L BUN 17 (7-18) mg/dL Creatinine 1.4 H (0.8-1.3) mg/dL Est Cr Clr Drug Dosing 43.28 mL/min Estimated GFR (MDRD) 50 L (>60) Glucose 65 L (74-106) mg/dL Calcium 8.7 (8.5-10.1) mg/dL Troponin I < 0.017 (0.000-0.056) ng/mL - Re-Assessments/Exams Free Text/Narrative Re-Assessment/Exam: 07/26/19 21:21 Patient remained asymptomatic while in the emergency room, troponin was 0, INR 2.85, CBC and BMP reassuring. Patient was anxious to get home, was discharged with atypical chest pain. I reassured him that the pain did not last enough for a typical cardiac pain. Departure - Departure Time of Disposition: 21:26 Disposition: Home, Self-Care 01 Clinical Impression: Atypical chest pain - Discharge Information Instructions: Nonspecific Chest Pain, Adult, [id number] Referrals: PCP,None [Primary Care Provider] - Forms: ED Department Discharge Care Plan Goals: Continue your current medications, diet and activity as tolerated and recheck if symptoms are recurring or worsening. Sepsis Event Note - Evaluation Sepsis Screening Result: No Definite Risk - Focused Exam Vital Signs: Vital Signs Temp Pulse Resp BP Pulse Ox 07/26/19 21:15 70 19 119/73 95 07/26/19 20:23 97.2 F 74 22 H 112/61 95 07/26/19 20:22 22 H 95 Date Exam was Performed: 07/26/19 Time Exam was Performed: 21:41
[2019-07-26 21:16] VITALS: BP 119/73; PULSE 70
== END 2019-07-26 21:33 | disposition home or self-care (01) ==
LOC: JP.ED 20:07
DX: R07.89 Other chest pain (principal); E78.00 Pure hypercholesterolemia, unspecified; I10 Essential (primary) hypertension; E11.40 Type 2 diabetes mellitus with diabetic neuropathy, unspecified; M19.90 Unspecified osteoarthritis, unspecified site; F32.9 Major depressive disorder, single episode, unspecified; I25.10 Atherosclerotic heart disease of native coronary artery without angina pectoris; Z86.73 Personal history of transient ischemic attack (TIA), and cerebral infarction without residual deficits; Z79.82 Long term (current) use of aspirin; Z79.899 Other long term (current) drug therapy; Z95.1 Presence of aortocoronary bypass graft
CPT/HCPCS: 36415; 80048; 84484; 85025; 85610; 99283; 99285-25

== ENCOUNTER 2019-09-17 09:39 | Day surgery (SDC) | payer MEDICARE, BC ==
[2019-09-17] MEDS ORDERED: Sodium Chloride 0.9% 1,000 ML IV SCH (10:00)
[2019-09-17] MEDS ORDERED: fentaNYL 100 MCG/2 ML SDV ONE (10:55)
[2019-09-17] MEDS ORDERED: Propofol 200 MG/20 ML SDV ONE (10:55)
[2019-09-17 12:03] VITALS: PULSE 70
[2019-09-17 12:23] VITALS: BP 103/63
--- NOTE | 2019-09-17 13:10 | OR ---
DATE OF PROCEDURE: 09/17/2019 SURGEON: Cristobal Jackson MD PROCEDURE: Colonoscopy. FINDINGS: 1. Cecal polyp, approximately 5 mm, completely removed using cold biopsy forceps. 2. Sigmoid colon polyp, approximately 5 mm, completely removed using cold biopsy forceps. COMPLICATIONS: None. INK JET OPERATOR: None. ANESTHESIA: MAC. PREOPERATIVE DIAGNOSIS: History of polyps. POSTOPERATIVE DIAGNOSIS: History of polyps. RISKS: Risks, benefits, alternatives, and limitations including, but not limited to infection, bleeding, and perforation were explained to the patient, who wished to proceed. PROCEDURE IN DETAIL: The patient was placed in left lateral decubitus position. Digital rectal exam was performed without abnormality. Scope was introduced and advanced atraumatically to the ileocecal valve. Scope was brought back through the ascending, transverse, descending colon, and retroflexed. The aforementioned polyps were both completely removed using cold biopsy forceps. No abnormalities on retroflexion. The patient tolerated the procedure well. Of note, the patient had significant diverticulosis, which was very dense, throughout the entire colon without evidence of diverticulitis or bleeding. The prep was also marginally acceptable with approximately 90% luminal surface could be seen. Cristobal Jackson MD /[id number]
== END 2019-09-17 12:42 | disposition home or self-care (01) ==
LOC: JP.SDS 09:39
PROVIDERS: ATTEND Surgery
DX: Z12.11 Encounter for screening for malignant neoplasm of colon (principal); D12.0 Benign neoplasm of cecum; K57.30 Diverticulosis of large intestine without perforation or abscess without bleeding; I10 Essential (primary) hypertension; E78.5 Hyperlipidemia, unspecified; E11.9 Type 2 diabetes mellitus without complications; Z98.890 Other specified postprocedural states; Z86.010 Personal history of colon polyps
CPT/HCPCS: 45380; 88305; J2704; J3010; J7030

== ENCOUNTER 2020-03-21 08:29 | Observation (INO) | payer MEDICARE, BC ==
[2020-03-21] MEDS ORDERED: Sodium Chloride 0.9% 10 ML Syringe FLUSH PRN ×2 (08:38→14:17)
--- NOTE | 2020-03-21 09:10 | EDM.PDOC ---
ED HPI GENERAL MEDICAL PROBLEM - General Chief Complaint: Neuro Symptoms/Deficits Stated Complaint: POSSIBLE STROKE Time Seen by Provider: 03/21/20 08:55 Source of Information: Reports: Patient, Family, Old Records, RN History Limitations: Reports: No Limitations - History of Present Illness INITIAL COMMENTS - FREE TEXT/NARRATIVE: 75 yo male with a hx of CAD and a pHx of CVA called EMS this morning out of concern that he had had a CVA. Sx's began before bed last evening. "He just didn't feel right". His female friend tells us that she had to tell him how to get dressed this morning. He denies any current pain. No recent illness. He lives alone most of the time. [place] slightly dizzy like he might fall, but he didn't. Is having trouble pronouncing some words or remembering some family member's names. Has a pacemaker. Onset: Sudden Onset Date: 03/20/20 Duration: Hour(s):, Constant Location: Reports: Generalized Quality: Reports: Other (no pain reported) Severity: Mild Improves with: Reports: None Worsens with: Reports: Other (unknown) Context: Reports: Other (See HPI) Associated Symptoms: Reports: No Other Symptoms Treatments DEAN OF STUDENTS: Reports: Other (see below) (none) - Related Data Allergies Allergy/AdvReac Type Severity Reaction Status Date / Time No Known Allergies Allergy Verified 03/21/20 08:35 Home Meds: Home Meds Cyanocobalamin (Vitamin B12) [Vitamin B12] 1,000 mcg SL DAILY 02/02/13 [History] Doxazosin Mesylate [Cardura] 2 mg PO BEDTIME 02/02/13 [History] Lovastatin 80 mg PO BEDTIME 02/02/13 [History] Nitroglycerin [Nitrostat] 0.4 mg SL ASDIRECTED PRN 02/02/13 [History] PARoxetine [Paxil] 20 mg PO DAILY 02/02/13 [History] Vitamin B Complex 1 each PO DAILY 02/02/13 [History] Ferrous Sulfate 325 mg PO BID 01/07/18 [History] Aspirin [Low Dose Aspirin EC] 81 mg PO DAILY 11/18/18 [History] Triamcinolone Acetonide [Triamcinolone Acetonide 0.1% Crm] 1 appful TOP ASDIRECTED PRN 11/18/18 [History] Warfarin [Coumadin] 1 tab PO ASDIRECTED 11/18/18 [History] Metoprolol Tartrate 12.5 mg PO BID 09/15/19 [History] metFORMIN HCl [Metformin HCl] 1,000 mg PO BID 09/15/19 [History] Cholecalciferol (Vitamin D3) [Vitamin D3] 1,000 unit PO DAILY 03/21/20 [History] Past Medical History HEENT History: Reports: Cataract, Hard of Hearing, Impaired Vision Cardiovascular History: Reports: Bypass, High Cholesterol, Hypertension Other Cardiovascular History: External heart monitor placed October 23 2018 Respiratory History: Reports: Sleep Apnea Gastrointestinal History: Reports: Colon Polyp Genitourinary History: Reports: Other (See Below) Other Genitourinary History: renal failure Musculoskeletal History: Reports: Arthritis Neurological History: Reports: CVA, Neuropathy, Diabetic, TIA Psychiatric History: Reports: Anxiety, Depression, Mood Swings Endocrine/Metabolic History: Reports: Diabetes, Type II Hematologic History: Reports: B12 Deficiency, Iron Deficiency Immunologic History: Reports: None Oncologic (Cancer) History: Reports: None Dermatologic History: Reports: None - Infectious Disease History Infectious Disease History: Reports: Chicken Pox Other Infectious Disease History: unknown - Past Surgical History Head Surgeries/Procedures: Reports: None HEENT Surgical History: Reports: Cataract Surgery, Oral Surgery, Tonsillectomy Cardiovascular Surgical History: Reports: Coronary Artery Bypass, Pacer Respiratory Surgical History: Reports: None GI Surgical History: Reports: Bariatric Procedure, Cholecystectomy, Colonoscopy, EGD, Hernia Repair/Other Other GI Surgeries/Procedures: bariatric procedure 2008? Male Surgical History: Reports: None Endocrine Surgical History: Reports: None Neurological Surgical History: Reports: None Musculoskeletal Surgical History: Reports: Arthroscopic Knee, Other (See Below) Other Musculoskeletal Surgeries/Procedures:: meniscus tear repair Oncologic Surgical History: Reports: None Social & Family History - Family History Family Medical History: No Pertinent Family History - Tobacco Use Tobacco Use Status *Q: Never Tobacco User Second Hand Smoke Exposure: No - Caffeine Use Caffeine Use: Reports: Soda - Recreational Drug Use Recreational Drug Use: No ED ROS GENERAL - Review of Systems Review Of Systems: See Below Constitutional: Reports: No Symptoms HEENT: Reports: No Symptoms Respiratory: Reports: No Symptoms Cardiovascular: Reports: No Symptoms GI/Abdominal: Reports: No Symptoms : Reports: No Symptoms Musculoskeletal: Reports: No Symptoms Skin: Reports: No Symptoms Neurological: Reports: Confusion (mild), Dizziness (mild). Denies: Headache, Syncope Psychiatric: Reports: No Symptoms ED EXAM, NEURO - Physical Exam Exam: See Below Exam Limited By: No Limitations General Appearance: Alert, WD/WN, No Apparent Distress Eye Exam: Bilateral Eye: Normal Inspection, PERRL Ears: Normal External Exam, Normal Canal, Hearing Grossly Normal, Normal TMs Nose: Normal Inspection, No Blood Throat/Mouth: Normal Inspection, Normal Lips, Normal Oropharynx, Normal Voice, No Airway Compromise Head Exam: Atraumatic, Normocephalic Neck: Normal Inspection Respiratory/Chest: No Respiratory Distress, Lungs Clear, Normal Breath Sounds, No Accessory Muscle Use, Other (Pacer L upper chest. 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 No: CVA Tenderness (R), CVA Tenderness (L) Extremities: Normal Inspection, Normal Range of Motion, Non-Tender, No Pedal Edema Psychiatric: Normal Affect, Normal Mood Skin Exam: Warm, Dry, Intact, Normal Color, No Rash Course - Vital Signs Text/Narrative:: Consulted an [facility]roke neurologist @ 11:30am Dr. Parker called @ 11:37 am. Last Recorded V/S: Last Vital Signs Temp 34.8 C L 03/21/20 08:31 Pulse 71 03/21/20 09:33 Resp 16 03/21/20 08:31 BP 130/92 H 03/21/20 09:33 Pulse Ox 96 03/21/20 08:31 - Orders/Labs/Meds Orders: Active Orders 24 hr Category Date Time Status Cardiac Monitoring [RC] .As Directed Care 03/21/20 08:38 Active Iopamidol [Isovue-370 (76%)] Med 03/21/20 10:00 Active 100 ml IV . DIRECTED Sodium Chloride 0.9% [Normal Saline] 100 ml Med 03/21/20 10:00 Active IV ASDIRECTED Sodium Chloride 0.9% [Saline Flush] Med 03/21/20 08:38 Active 10 ml FLUSH ASDIRECTED PRN Saline Lock Insert [OM.PC] Routine Oth 03/21/20 08:38 Ordered Medication Orders Sodium Chloride (Normal Saline) 100 mls @ 3 mls/sec IV ASDIRECTED RANJANA Last Admin: 03/21/20 09:50 Dose: 3 mls/sec Documented by: MELINDA Iopamidol (Isovue-370 (76%)) 100 ml IV . DIRECTED RANJANA Last Admin: 03/21/20 09:50 Dose: 100 ml Documented by: MELINDA Sodium Chloride (Saline Flush) 10 ml FLUSH ASDIRECTED PRN PRN Reason: Keep Vein Open Last Admin: 03/21/20 08:59 Dose: 10 ml Documented by: [email or web address] Labs: Laboratory Tests 03/21/20 03/21/20 03/21/20 Range/Units 08:47 08:47 08:47 WBC 7.8 (4.5-11.0) K/uL RBC 4.47 (4.30-5.90) M/uL Hgb 13.7 (12.0-15.0) g/dL Hct 42.0 (40.0-54.0) % MCV 94 (80-98) fL MCH 31 (27-31) pg MCHC 33 (32-36) % Plt Count 204 (150-400) K/uL PT 26.0 H (9.5-12.0) sec INR 2.43 H (0.80-1.20) Sodium 136 L (140-148) mmol/L Potassium 4.1 (3.6-5.2) mmol/L Chloride 105 (100-108) mmol/L Carbon Dioxide 25 (21-32) mmol/L Anion Gap 10.1 (5.0-14.0) mmol/L BUN 20 H (7-18) mg/dL Creatinine 1.2 (0.8-1.3) mg/dL Est Cr Clr Drug Dosing 49.73 mL/min Estimated GFR (MDRD) 59 L (>60) Glucose 140 H (74-106) mg/dL Calcium 8.3 L (8.5-10.1) mg/dL Troponin I (0.000-0.056) ng/mL Urine Color (YELLOW) Urine Appearance (CLEAR) Urine pH (5.0-8.0) Ur Specific Oolitic (1.008-1.030) Urine Protein (NEGATIVE) mg/dL Urine Glucose (UA) (NEGATIVE) mg/dL Urine Ketones (NEGATIVE) mg/dL Urine Occult Blood (NEGATIVE) Urine Nitrite (NEGATIVE) Urine Bilirubin (NEGATIVE) Urine Urobilinogen (0.2-1.0) EU/dL Ur Leukocyte Esterase (NEGATIVE) Urine RBC (0-5) Urine WBC (0-5) Ur Epithelial Cells Amorphous Sediment Urine Bacteria Urine Mucus 03/21/20 03/21/20 Range/Units 08:47 10:23 WBC (4.5-11.0) K/uL RBC (4.30-5.90) M/uL Hgb (12.0-15.0) g/dL Hct (40.0-54.0) % MCV (80-98) fL MCH (27-31) pg MCHC (32-36) % Plt Count (150-400) K/uL PT (9.5-12.0) sec INR (0.80-1.20) Sodium (140-148) mmol/L Potassium (3.6-5.2) mmol/L Chloride (100-108) mmol/L Carbon Dioxide (21-32) mmol/L Anion Gap (5.0-14.0) mmol/L BUN (7-18) mg/dL Creatinine (0.8-1.3) mg/dL Est Cr Clr Drug Dosing mL/min Estimated GFR (MDRD) (>60) Glucose (74-106) mg/dL Calcium (8.5-10.1) mg/dL Troponin I < 0.017 (0.000-0.056) ng/mL Urine Color Yellow (YELLOW) Urine Appearance Clear (CLEAR) Urine pH 6.5 (5.0-8.0) Ur Specific Oolitic 1.015 (1.008-1.030) Urine Protein Negative (NEGATIVE) mg/dL Urine Glucose (UA) Negative (NEGATIVE) mg/dL Urine Ketones Negative (NEGATIVE) mg/dL Urine Occult Blood Negative (NEGATIVE) Urine Nitrite Negative (NEGATIVE) Urine Bilirubin Negative (NEGATIVE) Urine Urobilinogen 1.0 (0.2-1.0) EU/dL Ur Leukocyte Esterase Negative (NEGATIVE) Urine RBC 0-5 (0-5) Urine WBC 0-5 (0-5) Ur Epithelial Cells Not seen Amorphous Sediment Not seen Urine Bacteria Not seen Urine Mucus Not seen Meds: Medications Generic Name Dose Route Start Last Admin Trade Name Freq PRN Reason Stop Dose Admin Sodium Chloride 100 mls @ 3 mls/sec 03/21/20 10:00 03/21/20 09:50 Normal Saline IV 3 mls/sec ASDIRECTED RANJANA Administration Iopamidol 100 ml 03/21/20 10:00 03/21/20 09:50 Isovue-370 (76%) IV 100 ml . DIRECTED RANJANA Administration Sodium Chloride 10 ml 03/21/20 08:38 03/21/20 08:59 Saline Flush FLUSH 10 ml ASDIRECTED PRN Administration Keep Vein Open Discontinued Medications Generic Name Dose Route Start Last Admin Trade Name Freq PRN Reason Stop Dose Admin Levetiracetam 1,000 mg 03/21/20 11:34 Keppra PO 03/21/20 11:35 NOW STA Sodium Chloride 10 ml 03/21/20 09:48 03/21/20 09:50 Saline Flush FLUSH 03/21/20 09:49 10 ml ONETIME ONE Administration - Radiology Interpretation Free Text/Narrative:: CT head- Angio Head- Angio neck- CT Results Date: 03/21/20 Departure - Departure Time of Disposition: 12:05 Disposition: Admitted As Inpatient 66 Condition: Fair Clinical Impression: Confusion - Discharge Information *PRESCRIPTION DRUG MONITORING PROGRAM REVIEWED*: Not Applicable *COPY OF PRESCRIPTION DRUG MONITORING REPORT IN PATIENT BARRETT: Not Applicable Referrals: Oseas Mckeon MD [Primary Care Provider] - Forms: ED Department Discharge Sepsis Event Note (ED) - Evaluation Sepsis Screening Result: No Definite Risk - Focused Exam Vital Signs: Vital Signs Temp Pulse Resp BP Pulse Ox 03/21/20 09:33 71 130/92 H 03/21/20 08:31 34.8 C L 72 16 128/74 96 - My Orders Last 24 Hours: My Active Orders 03/21/20 08:38 Cardiac Monitoring [RC] .As Directed Sodium Chloride 0.9% [Saline Flush] 10 ml FLUSH ASDIRECTED PRN Saline Lock Insert [OM.PC] Routine 03/21/20 10:00 Iopamidol [Isovue-370 (76%)] 100 ml IV . DIRECTED Sodium Chloride 0.9% [Normal Saline] 100 ml IV ASDIRECTED - Assessment/Plan Last 24 Hours: My Active Orders 03/21/20 08:38 Cardiac Monitoring [RC] .As Directed Sodium Chloride 0.9% [Saline Flush] 10 ml FLUSH ASDIRECTED PRN Saline Lock Insert [OM.PC] Routine 03/21/20 10:00 Iopamidol [Isovue-370 (76%)] 100 ml IV . DIRECTED Sodium Chloride 0.9% [Normal Saline] 100 ml IV ASDIRECTED
[2020-03-21] MEDS ORDERED: Sodium Chloride 0.9% 10 ML Syringe FLUSH ONE (09:48)
[2020-03-21] MEDS ORDERED: Iopamidol 755 Mg/ML 100 ML Bottle IV SCH (10:00)
[2020-03-21] MEDS ORDERED: Sodium Chloride 0.9% 100 ML IV SCH (10:00)
--- NOTE | 2020-03-21 10:41 | CT ---
Ang Neck CLINICAL HISTORY: Mild confusion TECHNIQUE: Multiple axial images were obtained through the neck without and with the IV infusion of iodinated contrast. From these images sagittal, coronal, and 3D reconstructions of the aortic arch and carotids were obtained and viewed on a dedicated and independent workstation. NASCET criteria is used. Auto dosage reduction and iterative reconstruction techniques employed. FINDINGS: There is moderate hard plaque in the aortic arch and proximal brachiocephalic vessels. Both vertebral arteries are moderately tortuous and the proximal portions. There is suggestion of some stenosis at the origin of the left vertebral. There is hard plaque along both common carotid arteries.There is moderate plaque in the right the carotid bifurcation. There is approximately 60% stenosis of the distal RIGHT common carotid artery. Plaque extends into the internal carotid artery without significant ICA stenosis. There is [id number] extradural carotid artery stenosis. There is moderate hard plaque in the LEFT carotid bifurcation. ICA stenosis is less than 40%. IMPRESSION: Moderate atheromatous plaque in the aortic arch and proximal brachiocephalic vessels. Mild stenosis of the origin of the left vertebral artery Approximate 60% stenosis of the distal right common carotid artery. There is mild to moderate right external carotid artery stenosis Mild stenosis of the left proximal ICA
--- NOTE | 2020-03-21 10:54 | CT ---
Ang Head CLINICAL HISTORY: Mild confusion. COMPARISON: None TECHNIQUE: Multiple volume rendered and MIP 3D reconstructions were generated from source images obtained on a spiral scanner before and after intravenous iodinated contrast enhancement Auto dosage reduction and iterative reconstruction techniques employed. FINDINGS: There is a large area of encephalomalacia involving the left occipital lobe and temporal occipital junction regions of remote chronology. Internal carotid arteries: Both ICA siphons are densely calcified. There is felt to be moderate to severe stenosis bilaterally. The lumens are obscured due to dense plaque. Anterior cerebral arteries: Show some mild soft plaque without stenosis. The anterior communicating artery is patent. Middle cerebral arteries: There is diffuse noncalcified plaque without significant focal stenosis or aneurysm. Posterior cerebral arteries: There is plaque and both posterior cerebral artery distributions. There is a focal moderate stenosis in the left PLATE CLEANER. The left posterior communicating artery is patent. The right posterior indicating artery is absent. Vertebral/basilar arteries: There is diffuse atheromatous plaque with some mild stenosis in the distal basilar artery. 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
--- NOTE | 2020-03-21 11:14 | CT ---
Head wo Cont CLINICAL HISTORY: Confusion COMPARISON: 2017 TECHNIQUE: Transverse scans were obtained from the base of the skull through the vertex without IV contrast on a multislice, multidetector CT scanner. Auto dosage reduction and iterative reconstruction techniques employed. FINDINGS: There is a large area of encephalomalacia involving the left occipital lobe as well as the occipital parietal junction and left temporal lobe. There are smaller well-defined areas of encephalomalacia in the left basal ganglia. There is no mass effect, hemorrhage, or extraaxial collection. The basal cisterns and sulci over the convexities are prominent. The ventricles are normal for age. IMPRESSION: Old infarcts in the left middle cerebral and posterior cerebral artery distribution similar to 2017 Moderate atrophy
[2020-03-21] MEDS ORDERED: levETIRAcetam 250 MG Tab PO STA (11:34)
--- NOTE | 2020-03-21 12:01 | PCM.HP.2 ---
H&P History of Present Illness - General Date of Service: 03/21/20 Admit Problem/Dx: Admission Diagnosis/Problem Admission Diagnosis/Problem Seizure Source of Information: Patient, Provider, RN Notes Reviewed History Limitations: Reports: No Limitations - History of Present Illness Initial Comments - Free Text/Narative: Mr. Yan is a 75-year-old gentleman who was admitted through the emergency department with new onset of confusion this morning. He has a known history of cerebrovascular disease and is status post previous left CVA with residual right-sided weakness. He was noted today to be somewhat confused and lethargic so he was brought into the emergency department for further evaluation. CT scan of the head showed evidence of old infarct but no acute abnormalities. CTA of the head and neck did show evidence of moderate to severe bilateral carotid aleksandr ry stenosis and moderate stenosis within the brain. He seems to have improved somewhat through the morning in the emergency department but is not yet back to baseline. Current symptoms and findings were reviewed with neurology on-call. They felt it was likely that he had experienced a seizure related to his previous CVA. They have recommended starting him on Keppra 500 mg twice daily. Follow-up appointment with neurology and EEG. - Related Data Allergies/Adverse Reactions: Allergies Allergy/AdvReac Type Severity Reaction Status Date / Time No Known Allergies Allergy Verified 03/21/20 08:35 Home Medications: Home Meds Cyanocobalamin (Vitamin B12) [Vitamin B12] 1,000 mcg SL DAILY 02/02/13 [History] Doxazosin Mesylate [Cardura] 2 mg PO BEDTIME 02/02/13 [History] Lovastatin 80 mg PO BEDTIME 02/02/13 [History] Nitroglycerin [Nitrostat] 0.4 mg SL ASDIRECTED PRN 02/02/13 [History] PARoxetine [Paxil] 20 mg PO DAILY 02/02/13 [History] Vitamin B Complex 1 each PO DAILY 02/02/13 [History] Ferrous Sulfate 325 mg PO BID 01/07/18 [History] Aspirin [Low Dose Aspirin EC] 81 mg PO DAILY 11/18/18 [History] Triamcinolone Acetonide [Triamcinolone Acetonide 0.1% Crm] 1 appful TOP ASDIRECTED PRN 11/18/18 [History] Warfarin [Coumadin] 3 mg PO ASDIRECTED 11/18/18 [History] Metoprolol Tartrate 12.5 mg PO BID 09/15/19 [History] metFORMIN HCl [Metformin HCl] 1,000 mg PO BID 09/15/19 [History] Cholecalciferol (Vitamin D3) [Vitamin D3] 1,000 unit PO DAILY 03/21/20 [History] Past Medical History HEENT History: Reports: Cataract, Hard of Hearing, Impaired Vision Cardiovascular History: Reports: Bypass, High Cholesterol, Hypertension Other Cardiovascular History: External heart monitor placed October 23 2018 Respiratory History: Reports: Sleep Apnea Gastrointestinal History: Reports: Colon Polyp Genitourinary History: Reports: Other (See Below) Other Genitourinary History: renal failure Musculoskeletal History: Reports: Arthritis Neurological History: Reports: CVA, Neuropathy, Diabetic, TIA Psychiatric History: Reports: Anxiety, Depression, Mood Swings Endocrine/Metabolic History: Reports: Diabetes, Type II Hematologic History: Reports: B12 Deficiency, Iron Deficiency Immunologic History: Reports: None Oncologic (Cancer) History: Reports: None Dermatologic History: Reports: None - Infectious Disease History Infectious Disease History: Reports: Chicken Pox Other Infectious Disease History: unknown - Past Surgical History Head Surgeries/Procedures: Reports: None HEENT Surgical History: Reports: Cataract Surgery, Oral Surgery, Tonsillectomy Cardiovascular Surgical History: Reports: Coronary Artery Bypass, Pacer Respiratory Surgical History: Reports: None GI Surgical History: Reports: Bariatric Procedure, Cholecystectomy, Colonoscopy, EGD, Hernia Repair/Other Other GI Surgeries/Procedures: bariatric procedure 2007? Male Surgical History: Reports: None Endocrine Surgical History: Reports: None Neurological Surgical History: Reports: None Musculoskeletal Surgical History: Reports: Arthroscopic Knee, Other (See Below) Other Musculoskeletal Surgeries/Procedures:: meniscus tear repair Oncologic Surgical History: Reports: None Social & Family History - Family History Family Medical History: No Pertinent Family History - Tobacco Use Tobacco Use Status *Q: Never Tobacco User Second Hand Smoke Exposure: No - Caffeine Use Caffeine Use: Reports: Soda - Recreational Drug Use Recreational Drug Use: No H&P Review of Systems - Review of Systems: Review Of Systems: See Below General: Reports: No Symptoms HEENT: Reports: No Symptoms Pulmonary: Reports: No Symptoms Cardiovascular: Reports: No Symptoms Gastrointestinal: Reports: No Symptoms Genitourinary: Reports: No Symptoms Musculoskeletal: Reports: No Symptoms Skin: Reports: No Symptoms Psychiatric: Reports: Confusion. Denies: Anxiety, Agitation Neurological: Reports: Confusion, Pre-Existing Deficit, Weakness (Residual right-sided weakness secondary to previous CVA). Denies: Headache, Tingling, Tremors, Trouble Speaking, Difficulty Walking Hematologic/Lymphatic: Reports: No Symptoms Immunologic: Reports: No Symptoms Exam - Exam Exam: See Below - Vital Signs Vital Signs: Last Vital Signs Temp 94.6 F L 03/21/20 08:31 Pulse 75 03/21/20 11:25 Resp 12 03/21/20 11:25 BP 136/69 03/21/20 11:25 Pulse Ox 97 03/21/20 11:25 Weight: 180 lb - Exam Quality Assessment: DVT Prophylaxis General: Alert, Oriented, Cooperative, Mild Distress HEENT: Conjunctiva Clear, Hearing Intact, Mucosa Moist & [place], Normal Nasal Septum, Posterior Pharynx Clear, Pupils Equal Neck: Supple, Trachea Midline, +2 Carotid Pulse wo Bruit Lungs: Clear to Auscultation, Normal Respiratory Effort Cardiovascular: Regular Rate, Regular Rhythm, Normal S1, Normal S2. No: Systolic Murmur, Diastolic Murmur GI/Abdominal Exam: Soft, Non-Tender, No Organomegaly, No Distention Back Exam: Normal Inspection, Full Range of Motion Extremities: Non-Tender, No Pedal Edema Neurological: Sensation Intact, Other (Residual right facial and right upper extremity weakness secondary to previous CVA). No: Normal Speech Neuro Extensive - Mental Status: Alert, Oriented x3, Normal Cognition, Memory Intact - Patient Data Lab Results Last 24 hrs: Laboratory Results - last 24 hr 03/21/20 03/21/20 03/21/20 Range/Units 08:47 08:47 08:47 WBC 7.8 (4.5-11.0) K/uL RBC 4.47 (4.30-5.90) M/uL Hgb 13.7 (12.0-15.0) g/dL Hct 42.0 (40.0-54.0) % MCV 94 (80-98) fL MCH 31 (27-31) pg MCHC 33 (32-36) % Plt Count 204 (150-400) K/uL PT 26.0 H (9.5-12.0) sec INR 2.43 H (0.80-1.20) Sodium 136 L (140-148) mmol/L Potassium 4.1 (3.6-5.2) mmol/L Chloride 105 (100-108) mmol/L Carbon Dioxide 25 (21-32) mmol/L Anion Gap 10.1 (5.0-14.0) mmol/L BUN 20 H (7-18) mg/dL Creatinine 1.2 (0.8-1.3) mg/dL Est Cr Clr Drug Dosing 49.73 mL/min Estimated GFR (MDRD) 59 L (>60) Glucose 140 H (74-106) mg/dL Calcium 8.3 L (8.5-10.1) mg/dL Troponin I (0.000-0.056) ng/mL Urine Color (YELLOW) Urine Appearance (CLEAR) Urine pH (5.0-8.0) Ur Specific [place] (1.008-1.030) Urine Protein (NEGATIVE) mg/dL Urine Glucose (UA) (NEGATIVE) mg/dL Urine Ketones (NEGATIVE) mg/dL Urine Occult Blood (NEGATIVE) Urine Nitrite (NEGATIVE) Urine Bilirubin (NEGATIVE) Urine Urobilinogen (0.2-1.0) EU/dL Ur Leukocyte Esterase (NEGATIVE) Urine RBC (0-5) Urine WBC (0-5) Ur Epithelial Cells Amorphous Sediment Urine Bacteria Urine Mucus 03/21/20 03/21/20 Range/Units 08:47 10:23 WBC (4.5-11.0) K/uL RBC (4.30-5.90) M/uL Hgb (12.0-15.0) g/dL Hct (40.0-54.0) % MCV (80-98) fL MCH (27-31) pg MCHC (32-36) % Plt Count (150-400) K/uL PT (9.5-12.0) sec INR (0.80-1.20) Sodium (140-148) mmol/L Potassium (3.6-5.2) mmol/L Chloride (100-108) mmol/L Carbon Dioxide (21-32) mmol/L Anion Gap (5.0-14.0) mmol/L BUN (7-18) mg/dL Creatinine (0.8-1.3) mg/dL Est Cr Clr Drug Dosing mL/min Estimated GFR (MDRD) (>60) Glucose (74-106) mg/dL Calcium (8.5-10.1) mg/dL Troponin I < 0.017 (0.000-0.056) ng/mL Urine Color Yellow (YELLOW) Urine Appearance Clear (CLEAR) Urine pH 6.5 (5.0-8.0) Ur Specific [place] 1.015 (1.008-1.030) Urine Protein Negative (NEGATIVE) mg/dL Urine Glucose (UA) Negative (NEGATIVE) mg/dL Urine Ketones Negative (NEGATIVE) mg/dL Urine Occult Blood Negative (NEGATIVE) Urine Nitrite Negative (NEGATIVE) Urine Bilirubin Negative (NEGATIVE) Urine Urobilinogen 1.0 (0.2-1.0) EU/dL Ur Leukocyte Esterase Negative (NEGATIVE) Urine RBC 0-5 (0-5) Urine WBC 0-5 (0-5) Ur Epithelial Cells Not seen Amorphous Sediment Not seen Urine Bacteria Not seen Urine Mucus Not seen Result Diagrams: 03/21/20 08:47 03/21/20 08:47 Sepsis Event Note - Evaluation Sepsis Screening Result: No Definite Risk - Focused Exam Vital Signs: Vital Signs Temp Pulse Resp BP Pulse Ox 03/21/20 11:25 75 12 136/69 97 03/21/20 10:55 71 18 148/74 H 96 03/21/20 10:25 75 11 L 146/112 H 98 03/21/20 09:55 72 11 L 145/79 H 96 03/21/20 09:33 71 130/92 H 03/21/20 08:31 94.6 F L 72 16 128/74 96 *Q Meaningful Use (ADM) - VTE *Q VTE Pharmacological Contraindications *Q: High INR Value - VTE Risk Assess *Q Each Risk Factor Represents 1 Point: Obesity ( BMI > 25 kg/m2) Total Score 1 Point Risk Factors: 1 Each Risk Factor Represents 2 Points: None Total Score 2 Point Risk Factors: 0 Each Risk Factor Represents 3 Points: Age 75 Years or Greater Total Score 3 Point Risk Factors: 3 Each Risk Factor Represents 5 Points: None Total Score 5 Point Risk Factors: 0 Venous Thromboembolism Risk Factor Score *Q: 4 Problem List Initiated/Reviewed/Updated: Yes Orders Last 24hrs: Active Orders 24 hr Category Date Time Status Patient Status Manage Transfer [TRANSFER] Routine ADT 03/21/20 11:55 Ordered Cardiac Monitoring [RC] .As Directed Care 03/21/20 08:38 Active Iopamidol [Isovue-370 (76%)] Med 03/21/20 10:00 Active 100 ml IV . DIRECTED Sodium Chloride 0.9% [Normal Saline] 100 ml Med 03/21/20 10:00 Active IV ASDIRECTED Sodium Chloride 0.9% [Saline Flush] Med 03/21/20 08:38 Active 10 ml FLUSH ASDIRECTED PRN Saline Lock Insert [OM.PC] Routine Oth 03/21/20 08:38 Ordered Resuscitation Status Routine Resus Stat 03/21/20 11:57 Ordered Medication Orders Sodium Chloride (Normal Saline) 100 mls @ 3 mls/sec IV ASDIRECTED RANJANA Last Admin: 03/21/20 09:50 Dose: 3 mls/sec Documented by: MELINDA Iopamidol (Isovue-370 (76%)) 100 ml IV . DIRECTED RANJANA Last Admin: 03/21/20 09:50 Dose: 100 ml Documented by: MELINDA Sodium Chloride (Saline Flush) 10 ml FLUSH ASDIRECTED PRN PRN Reason: Keep Vein Open Last Admin: 03/21/20 08:59 Dose: 10 ml Documented by: QUINN Assessment/Plan Comment:: ASSESSMENT AND PLAN PROBABLE SEIZURE-acute confusion and lethargy. CT of head as well as CTA did show some evidence of vascular disease, no evidence of acute infarct. Reviewed with neurology through the emergency department and they have recommended initiation of antiepileptic therapy. -Keppra 1000 mg given in ED -Keppra 500 mg p.o. twice daily -Outpatient EEG -Outpatient neurology consult HISTORY OF CEREBROVASCULAR DISEASE STATUS POST PREVIOUS LEFT CVA-other than confusion no acute focal neurologic deficits identified TYPE 2 DIABETES MELLITUS -Continue Metformin -4 times daily glucometers -Low-dose sliding scale Humalog LONG-TERM ORAL ANTICOAGULATION WITH WARFARIN -Continue usual dose of warfarin -Reassess INR in a.m. MAINTENANCE ISSUES -DVT prophylaxis; current therapy with warfarin should provide adequate DVT prop hylaxis -GI prophylaxis; not indicated -Collazo catheter; not indicated -Nutrition; usual diet -Nicotine dependence; not required CODE STATUS-FULL CODE ADMISSION STATUS-this patient will be admitted to observation status, expect no more than a one night hospital stay for evaluation and management of problems as outlined above. DISPOSITION-anticipate discharge to home after the hospital stay. PRIMARY CARE PROVIDER-Dr. Mckeon - Mortality Measure Prognosis:: Good
[2020-03-21] MEDS ORDERED: Glucose Gel 15 GM in 37.5 GM Tube PO PRN (14:17)
[2020-03-21] MEDS ORDERED: Ondansetron 4 MG/2 ML SDV IV PRN (14:17)
[2020-03-21] MEDS ORDERED: Acetaminophen 325 MG Tab PO PRN (14:17)
[2020-03-21] MEDS ORDERED: Polyethylene Glycol 3350 Powder 17 GM Packet PO PRN (14:17)
[2020-03-21] MEDS ORDERED: 50% Dextrose in Water 50 ML Syringe IV PRN (14:17)
[2020-03-21] MEDS: Insulin Lispro 100 Unit/ML 3 ML KwikPen SUBCUT SCH ×2 (16:53→21:18)
[2020-03-21] MEDS ORDERED: metFORMIN 500 MG Tab PO SCH (17:00)
[2020-03-21] MEDS: METFORMIN 1,000MG TAB (PTOM) PO SCH (17:29)
[2020-03-21] MEDS ORDERED: LOVASTATIN 80 MG PO SCH (21:00)
[2020-03-21] MEDS ORDERED: DOXAZOSIN 2 MG PO SCH (21:00)
[2020-03-21] MEDS ORDERED: DOXAZOSIN MESYLATE 2 MG PO SCH (21:00)
[2020-03-21] MEDS ORDERED: Doxazosin 4 MG Tab PO SCH (21:00)
[2020-03-21] MEDS ORDERED: LOVASTATIN 40 MG PO SCH (21:00)
[2020-03-21] MEDS ORDERED: Non-Formulary Medication 1 Each (Metformin Hcl [Metformin Hcl] 1,000 MG) PO SCH (21:00)
[2020-03-21] MEDS: Metoprolol Tartrate 25 MG Tab (PTOM) PO SCH (21:30)
[2020-03-21] MEDS: levETIRAcetam 250 MG Tab PO SCH (21:39)
[2020-03-22] MEDS: Insulin Lispro 100 Unit/ML 3 ML KwikPen SUBCUT SCH ×2 (08:31→14:56)
[2020-03-22] MEDS ORDERED: WARFARIN PO SCH (09:00)
[2020-03-22] MEDS ORDERED: PAROXETINE 20 MG PO SCH ×2 (09:00)
[2020-03-22] MEDS ORDERED: Aspirin 81 MG Tab.EC PO SCH (09:00)
[2020-03-22] MEDS: levETIRAcetam 250 MG Tab PO SCH (09:34)
[2020-03-22] MEDS: METFORMIN 1,000MG TAB (PTOM) PO SCH (09:35)
[2020-03-22] MEDS: Metoprolol Tartrate 25 MG Tab (PTOM) PO SCH (09:37)
[2020-03-22 10:20] VITALS: BP 108/76; PULSE 71
--- NOTE | 2020-03-22 12:36 | PCM.DCSUM1 ---
Discharge Summary - Hospital Course Brief History: 75-year-old male with history of cerebrovascular disease, coronary artery disease, type 2 diabetes mellitus who presented with confusion. He was admitted for observation with concern that he may have had a seizure. Diagnosis: Stroke: No - Discharge Data Discharge Date: 03/22/20 Discharge Disposition: Home, W Home Health Agency 06 Condition: Fair - Referral to Home Health Date of Face to Face Encounter: 03/22/20 Reason for Homebound Status: hx of CVA, impaired mobility Primary Care Physician: Oseas Mckeon MD Skilled Need: PT and OT - Discharge Diagnosis/Problem(s) (1) Seizure as late effect of cerebrovascular accident (CVA) SNOMED Code(s): 580914967386704 ICD Code: I69.398 - OTHER SEQUELAE OF CEREBRAL INFARCTION; R56.9 - UNSPECIFIED CONVULSIONS Status: Acute (2) Diabetes mellitus type 2 SNOMED Code(s): 58391430 ICD Code: E11.9 - TYPE 2 DIABETES MELLITUS WITHOUT COMPLICATIONS Status: Chronic (3) CAD (coronary artery disease) SNOMED Code(s): 90492054 ICD Code: I25.10 - ATHSCL HEART DISEASE OF [place] CORONARY ARTERY W/O ANG PCTRS Status: Chronic Qualifiers: Coronary Disease-Associated Artery/Lesion type: [place] artery [place] vs. transplanted heart: [place] heart Associated angina: without angina Qualified Code(s): I25.10 - Atherosclerotic heart disease of [place] coronary artery without angina pectoris - Patient Summary/Data Consults: Consultations 03/22/20 07:45 Consult to Physical Therapy [PT Evaluation and Treatment] [CONS] Routine Please Evaluate and Treat. PT Reason for Consult: weakness Pending Discharge: Yes This query below is only for informational purposes and is not editable. Admission Diagnosis/Problem: Seizure 03/22/20 07:46 OT Evaluation and Treatment [CONS] Routine Please Evaluate and Treat. OT Reason for Consult: weakness Pending Discharge: Yes This query below is only for informational purposes and is not editable. Admission Diagnosis/Problem: Seizure Hospital Course: Bishop presented to the emergency room with confusion and lethargy. Extensive work-up in the emergency room did not find any acute abnormalities. Lab studies were unremarkable. Head CT did not show any new findings but did show his old stroke changes. The CT angiogram did find moderate to severe carotid stenosis as well as other areas of moderate stenosis but no obstructive lesions. The case was discussed with the neurologist on-call in [place] and he was concerned about a seizure. He was given a loading dose of Keppra and started on a maintenance dose. Overnight following admission there were no acute issues. He is still a little bit lethargic but improved compared to presentation. Vital signs have been stable. He was evaluated by physical therapy and Occupational Therapy and felt that he could complete his activities of daily living. He was interested in some home care to help ease the transition home from the hospital and improve his strength. Follow-up with neurology and an EEG could be consid ered. - Patient Instructions Diet: Diabetic Diet Activity: As Tolerated Showering/Bathing: May Shower Notify Provider of: Fever, Increased Pain Other/Special Instructions: 1. You were in the hospital for observation after an episode that we believe with a seizure. We have started you on a medication called Keppra to help reduce the risk of additional seizures. You should take Keppra 500 mg twice daily and a prescription has been sent to your pharmacy. We did not find any evidence for infection and there were no significant abnormalities with electrolytes or blood testing. I would recommend that you follow-up with your primary care physician in 1 to 2 weeks. 2. Continue your usual home medications as previously prescribed. 3. I have placed a referral to home health. They will provide physical and occupational therapy to help ease your transition home. - Discharge Plan *PRESCRIPTION DRUG MONITORING PROGRAM REVIEWED*: Not Applicable *COPY OF PRESCRIPTION DRUG MONITORING REPORT IN PATIENT BARRETT: Not Applicable Prescriptions/Med Rec: levETIRAcetam [Keppra] 500 mg PO BID #60 tab Home Medications: Home Meds Cyanocobalamin (Vitamin B12) [Vitamin B12] 1,000 mcg SL DAILY 02/02/13 [History] Doxazosin Mesylate [Cardura] 2 mg PO BEDTIME 02/02/13 [History] Lovastatin 80 mg PO BEDTIME 02/02/13 [History] Nitroglycerin [Nitrostat] 0.4 mg SL ASDIRECTED PRN 02/02/13 [History] PARoxetine [Paxil] 20 mg PO DAILY 02/02/13 [History] Vitamin B Complex 1 each PO DAILY 02/02/13 [History] Ferrous Sulfate 325 mg PO BID 01/07/18 [History] Aspirin [Low Dose Aspirin EC] 81 mg PO DAILY 11/18/18 [History] Triamcinolone Acetonide [Triamcinolone Acetonide 0.1% Crm] 1 appful TOP ASDIRECTED PRN 11/18/18 [History] Warfarin [Coumadin] 3 mg PO ASDIRECTED 11/18/18 [History] Metoprolol Tartrate 12.5 mg PO BID 09/15/19 [History] metFORMIN HCl [Metformin HCl] 1,000 mg PO BID 09/15/19 [History] Cholecalciferol (Vitamin D3) [Vitamin D3] 1,000 unit PO DAILY 03/21/20 [History] levETIRAcetam [Keppra] 500 mg PO BID #60 tab 03/22/20 [Rx] Oxygen Therapy Mode: Room Air Patient Handouts: Levetiracetam tablets, Seizure, Adult Referrals: Oseas Mckeon MD [Primary Care Provider] - 04/01/20 1:30 pm (1-2 weeks - f/u hospital stay for possible seizure ) - Discharge Summary/Plan Comment DC Time >30 min.: Yes (-home care) - Patient Data Vitals - Most Recent: Last Vital Signs Temp 34.9 C L 03/22/20 10:16 Pulse 71 03/22/20 10:16 Resp 18 03/22/20 10:16 BP 108/76 03/22/20 10:16 Pulse Ox 98 03/22/20 10:16 Weight - Most Recent: 77.1 kg I&O - Last 24 hours: Intake & Output 03/21/20 03/22/20 03/22/20 22:59 06:59 14:59 Intake Total 340 700 Output Total 650 350 Balance -310 -350 700 Lab Results - Last 24 hrs: Laboratory Results - last 24 hr 03/21/20 03/21/20 03/21/20 Range/Units 16:29 17:30 21:00 PT (9.5-12.0) sec INR (0.80-1.20) POC Glucose 65 L 141 H 74 (74-106) MG/DL 03/22/20 03/22/20 03/22/20 Range/Units 05:04 07:30 11:30 PT 22.7 H (9.5-12.0) sec INR 2.11 H (0.80-1.20) POC Glucose 91 69 L (74-106) MG/DL Med Orders - Current: Current Medications Acetaminophen (Tylenol) 650 mg PO Q4H PRN PRN Reason: Pain (Mild 1-3)/fever Aspirin (Halfprin) 81 mg PO DAILY [facility] Last Admin: 03/22/20 09:40 Dose: 81 mg Documented by: Dextrose (Glutose 15) 15 gm PO ASDIRECTED PRN PRN Reason: Hypoglycemia Dextrose/Water (Dextrose 50% In Water) 50 ml IV ASDIRECTED PRN PRN Reason: Hypoglycemia Insulin Human Lispro (Humalog) 0 unit SUBCUT QIDACANDBED [facility]; Protocol Last Admin: 03/22/20 08:31 Dose: Not Given Documented by: Levetiracetam (Keppra) 500 mg PO BID [facility] Last Admin: 03/22/20 09:34 Dose: 500 mg Documented by: Metoprolol Tartrate (Lopressor) 12.5 mg PO BID [facility] Last Admin: 03/22/20 09:37 Dose: 12.5 mg Documented by: Ondansetron HCl (Zofran) 4 mg IV Q4H PRN PRN Reason: Nausea/Vomiting Paroxetine HCl (Paxil) 20 mg PO DAILY [facility] Last Admin: 03/22/20 09:36 Dose: 20 mg Documented by: Lovastatin 40mg Tab ((Ptom)) 0 each PO BEDTIME [facility] Last Admin: 03/21/20 21:32 Dose: 1 each Documented by: Doxazosin 2mg Tab ( (Ptom)) 1 each PO BEDTIME [facility] Last Admin: 03/21/20 21:29 Dose: 1 each Documented by: Metformin 1,000mg (Tab (Ptom)) 1 each PO BIDMEALS [facility] Last Admin: 03/22/20 09:35 Dose: 1 each Documented by: Warfarin 3mg Tab ( (Ptom)) 1 each PO DAILY@1300 [facility] Polyethylene Glycol (Miralax) 17 gm PO DAILY PRN PRN Reason: Constipation Sodium Chloride (Saline Flush) 10 ml FLUSH ASDIRECTED PRN PRN Reason: Keep Vein Open Discontinued Medications Sodium Chloride (Normal Saline) 100 mls @ 3 mls/sec IV ASDIRECTED [facility] Last Admin: 03/21/20 09:50 Dose: 3 mls/sec Documented by: Iopamidol (Isovue-370 (76%)) 100 ml IV . DIRECTED [facility] Last Admin: 03/21/20 09:50 Dose: 100 ml Documented by: Levetiracetam (Keppra) 1,000 mg PO NOW STA Stop: 03/21/20 11:35 Last Admin: 03/21/20 11:38 Dose: 1,000 mg Documented by: Metformin HCl (Glucophage) 1,000 mg PO BIDMEALS [facility] Sodium Chloride (Saline Flush) 10 ml FLUSH ASDIRECTED PRN PRN Reason: Keep Vein Open Last Admin: 03/21/20 08:59 Dose: 10 ml Documented by: Sodium Chloride (Saline Flush) 10 ml FLUSH ONETIME ONE Stop: 03/21/20 09:49 Last Admin: 03/21/20 09:50 Dose: 10 ml Documented by: *Q Meaningful Use (DIS) - VTE *Q VTE Pharmacological Contraindications *Q: High INR Value
[2020-03-22] MEDS ORDERED: WARFARIN 3 MG PO SCH (13:00)
== END 2020-03-22 16:20 | disposition home health service (06) ==
LOC: JP.ED 08:29 → JP.MS 11:55
PROVIDERS: ADMIT Hospitalist; ATTEND Internal Medicine
DX: I69.398 Other sequelae of cerebral infarction (principal); R56.9 Unspecified convulsions; I25.10 Atherosclerotic heart disease of native coronary artery without angina pectoris; I10 Essential (primary) hypertension; E78.00 Pure hypercholesterolemia, unspecified; E11.40 Type 2 diabetes mellitus with diabetic neuropathy, unspecified; Z79.01 Long term (current) use of anticoagulants; Z79.899 Other long term (current) drug therapy
CPT/HCPCS: 36415; 70450; 70450-26; 70496; 70496-26; 70498; 70498-26; 80048; 81001; 82962; 84484; 85027; 85610; 97110-GP; 97161-GP; 97165-GO; 97535-GO; 99285-25; A9270-GY; G0378; Q9967

== ENCOUNTER 2020-03-23 16:33 | Emergency (ER) | payer MEDICARE, BC ==
[2020-03-23 17:27] VITALS: PULSE 74
--- NOTE | 2020-03-23 17:38 | EDM.PDOC ---
ED HPI GENERAL MEDICAL PROBLEM - General Chief Complaint: Neuro Symptoms/Deficits Stated Complaint: STROKE SYMPTOMS Time Seen by Provider: 03/23/20 17:00 Source of Information: Reports: Patient, Family History Limitations: Reports: Physical Impairment (Dysarthric and very weak) - History of Present Illness INITIAL COMMENTS - FREE TEXT/NARRATIVE: 75-year-old male who has had a significant change in mentation and physical strength over the past 7 days. He was admitted to the hospital 2 days ago with weakness and it was felt he had a possible seizure. He was treated with Keppra and discharged yesterday morning, but a well fair check on him today showed him stumbling around his apartment, dysarthric, and right facial drooping. He has no pain, he has not fallen and had any injury. Just 1 week ago this patient was driving around looking at [employer] lights, today he can barely walk. I reviewed his records, his INR was therapeutic yesterday morning. His CT angiogram of the head showed significant diffuse multivessel disease. Onset: Gradual (Symptoms started over the course of the last for 5 days) Associated Symptoms: Reports: Confusion, Malaise, Weakness. Denies: Fever/Chills, Headaches, Shortness of Breath - Related Data Allergies Allergy/AdvReac Type Severity Reaction Status Date / Time No Known Allergies Allergy Verified 03/23/20 16:55 Home Meds: Home Meds Cyanocobalamin (Vitamin B12) [Vitamin B12] 1,000 mcg SL DAILY 02/02/13 [History] Doxazosin Mesylate [Cardura] 2 mg PO BEDTIME 02/02/13 [History] Lovastatin 80 mg PO BEDTIME 02/02/13 [History] Nitroglycerin [Nitrostat] 0.4 mg SL ASDIRECTED PRN 02/02/13 [History] PARoxetine [Paxil] 20 mg PO DAILY 02/02/13 [History] Vitamin B Complex 1 each PO DAILY 02/02/13 [History] Ferrous Sulfate 325 mg PO BID 01/07/18 [History] Aspirin [Low Dose Aspirin EC] 81 mg PO DAILY 11/18/18 [History] Triamcinolone Acetonide [Triamcinolone Acetonide 0.1% Crm] 1 appful TOP ASDIRECTED PRN 11/18/18 [History] Warfarin [Coumadin] 3 mg PO ASDIRECTED 11/18/18 [History] Metoprolol Tartrate 12.5 mg PO BID 09/15/19 [History] metFORMIN HCl [Metformin HCl] 1,000 mg PO BID 09/15/19 [History] Cholecalciferol (Vitamin D3) [Vitamin D3] 1,000 unit PO DAILY 03/21/20 [History] levETIRAcetam [Keppra] 500 mg PO BID #60 tab 03/22/20 [Rx] Past Medical History HEENT History: Reports: Cataract, Hard of Hearing, Impaired Vision Cardiovascular History: Reports: Bypass, High Cholesterol, Hypertension Other Cardiovascular History: External heart monitor placed October 23 2018 Respiratory History: Reports: Sleep Apnea Gastrointestinal History: Reports: Colon Polyp Genitourinary History: Reports: Other (See Below) Other Genitourinary History: renal failure Musculoskeletal History: Reports: Arthritis Neurological History: Reports: CVA, Neuropathy, Diabetic, TIA Psychiatric History: Reports: Anxiety, Depression, Mood Swings Endocrine/Metabolic History: Reports: Diabetes, Type II Hematologic History: Reports: B12 Deficiency, Iron Deficiency Immunologic History: Reports: None Oncologic (Cancer) History: Reports: None Dermatologic History: Reports: None - Infectious Disease History Infectious Disease History: Reports: Chicken Pox Other Infectious Disease History: unknown - Past Surgical History Head Surgeries/Procedures: Reports: None HEENT Surgical History: Reports: Cataract Surgery, Oral Surgery, Tonsillectomy Cardiovascular Surgical History: Reports: Coronary Artery Bypass, Pacer Respiratory Surgical History: Reports: None GI Surgical History: Reports: Bariatric Procedure, Cholecystectomy, Colonoscopy, EGD, Hernia Repair/Other Other GI Surgeries/Procedures: bariatric procedure 2008? Male Surgical History: Reports: None Endocrine Surgical History: Reports: None Neurological Surgical History: Reports: None Musculoskeletal Surgical History: Reports: Arthroscopic Knee, Other (See Below) Other Musculoskeletal Surgeries/Procedures:: meniscus tear repair Oncologic Surgical History: Reports: None Dermatological Surgical History: Reports: None Social & Family History - Family History Family Medical History: No Pertinent Family History - Tobacco Use Tobacco Use Status *Q: Never Tobacco User - Caffeine Use Caffeine Use: Reports: Coffee ED ROS GENERAL - Review of Systems Review Of Systems: See Below Constitutional: Reports: Malaise. Denies: Fever, Chills HEENT: Reports: Other (Denies weakness of the right periorbital muscles). Denies: Vision Change Respiratory: Denies: Shortness of Breath Cardiovascular: Denies: Chest Pain GI/Abdominal: Denies: Nausea, Vomiting Skin: Reports: Pallor Neurological: Reports: Confusion, Weakness, Other (Dysarthria). Denies: Headache Psychiatric: Reports: Confusion ED EXAM, NEURO - Physical Exam Exam: See Below Exam Limited By: No Limitations General Appearance: Alert, No Apparent Distress Eye Exam: Bilateral Eye: EOMI, Normal Inspection Head Exam: Atraumatic Neck: Supple, Non-Tender Respiratory/Chest: Lungs Clear Neurological: Alert, Oriented x 3, Other (Definite weakness of the right facial muscles especially perioral weakness with facial droop. Right hand grasp is weaker and coordination is affected compared to the left. He could not keep his right leg up against gravity as well as the left. Plantar and dorsiflexion of the foot is equal.) Course - Vital Signs Last Recorded V/S: Last Vital Signs Temp 97.1 F 03/23/20 16:53 Pulse 74 03/23/20 18:10 Resp 16 03/23/20 16:53 BP 137/71 03/23/20 18:10 Pulse Ox 96 03/23/20 18:10 - Re-Assessments/Exams Free Text/Narrative Re-Assessment/Exam: 03/23/20 18:03 IMPRESSION: New hypodensity in the posterior limb of the internal capsule on the left, probably an acute lacunar infarct with no sign of any hemorrhage or mass effect. Stable appearance of old large inferior division left MCA infarct. Stable appearance old infarction of the medial left putamen and the subcortical insular white matter. Stable moderate age-appropriate atrophy and mild, age-appropriate small-vessel ischemic change. 03/23/20 18:13 Above findings on his CT scan. I will see if I can get the patient transferred to [facility] for neuro consultation and interventional neurology 03/23/20 18:28 Patient was accepted for transfer to [facility]. Departure - Departure Time of Disposition: 19:02 Disposition: DC/Tfer to Other Clinical Impression: Ischemic stroke/CVA - Discharge Information Referrals: Oseas Mckeon MD [Primary Care Provider] - Forms: ED Department Discharge Care Plan Goals: Patient is to be transferred by EMS to [facility] for further evaluation and treatment for ischemic stroke, he will also likely need some rehabilitation and physical therapy. Sepsis Event Note (ED) - Evaluation Sepsis Screening Result: No Definite Risk
--- NOTE | 2020-03-23 17:54 | CRLCT ---
INDICATION: Right facial weakness and dysarthria. Stroke protocol. COMPARISON: 03/21/2020 TECHNIQUE: CT examination of the head was performed with 3 mm thick axial sections without intravenous contrast. Images were obtained from the vertex of the skull through the skull base, and I examined the images with the brain and bone windows. Please note that all CT scans at this facility use dose modulation, iterative reconstruction, and/or weight-based dosing when appropriate to reduce radiation dose to as low as reasonably achievable. FINDINGS: There is stable appearance of a large old left inferior division MCA infarct, with prominent encephalomalacia involving the superior left temporal lobe, extending through the inferior left parietal lobe to the posterior parietal region. There is hypodensity of the subcortical white matter of the insula. There is stable mild ex vacuo dilatation of the posterior body of the left lateral ventricle and of the left frontal horn. Again seen is focal encephalomalacia of the medial aspect of the left globus pallidus, infarction in the left medial lenticulostriate territory. There is new hyperdensity in the posterior limb of the internal capsule on the left, suggesting an acute, nonhemorrhagic lacunar infarct. There is no sign of any associated mass effect. The rest of the brain is normal in appearance for the patient`s age on today`s study, with no sign of mass lesion, mass effect, hemorrhage, or edema. There is stable moderate dilatation of the ventricles and sulci representing age-appropriate atrophy. There is stable mild periventricular and subcortical white matter hypodensity representing age-appropriate small vessel ischemia. The visualized portions of the orbits are normal in appearance. The visualized paranasal sinuses and mastoids are clear. The osseous structures are normal in their appearance with no sign of abnormality in the skull base or calvarium. IMPRESSION: New hypodensity in the posterior limb of the internal capsule on the left, probably an acute lacunar infarct with no sign of any hemorrhage or mass effect. Stable appearance of old large inferior division left MCA infarct. Stable appearance old infarction of the medial left putamen and the subcortical insular white matter. Stable moderate age-appropriate atrophy and mild, age-appropriate small-vessel ischemic change. Please note that all CT scans at this facility use dose modulation, iterative reconstruction, and/or weight-based dosing when appropriate to reduce radiation dose to as low as reasonably achievable. Dictated by Favio Andino MD @ Mar 23 2020 5:42PM Signed by Dr. Favio Andino @ Mar 23 2020 5:52PM
[2020-03-23 18:11] VITALS: BP 137/71
== END 2020-03-23 19:11 | disposition other institution (70) ==
LOC: JP.ED 16:33
DX: I63.9 Cerebral infarction, unspecified (principal); E78.00 Pure hypercholesterolemia, unspecified; I10 Essential (primary) hypertension; M19.90 Unspecified osteoarthritis, unspecified site; E11.40 Type 2 diabetes mellitus with diabetic neuropathy, unspecified; F41.9 Anxiety disorder, unspecified; F32.9 Major depressive disorder, single episode, unspecified; D50.9 Iron deficiency anemia, unspecified; Z79.82 Long term (current) use of aspirin; Z79.899 Other long term (current) drug therapy
CPT/HCPCS: 70450; 99285; 99285-25

== ENCOUNTER 2020-04-11 22:27 | Emergency (ER) | payer MEDICARE, BC ==
[2020-04-11 22:44] VITALS: BP 138/75; PULSE 74
--- NOTE | 2020-04-11 22:50 | EDM.PDOC ---
ED HPI GENERAL MEDICAL PROBLEM - General Chief Complaint: General Stated Complaint: STROKE SYMPTOMS Time Seen by Provider: 04/11/20 22:30 Source of Information: Reports: Patient, Family History Limitations: Reports: No Limitations - History of Present Illness INITIAL COMMENTS - FREE TEXT/NARRATIVE: 75-year-old male in today because he has increased weakness, confusion and dysar thria and just feels awful. He is worried that his had yet another stroke. They recently stopped his Coumadin because he was hypertherapeutic on his INR. He was sent for a stroke evaluation of [place] within the last month and is back home and living independently but called his girlfriend susy to tell her that he was doing awful so she brought him in. He is actually scheduled to be admitted to assisted living in 2 days. No specific complaints, he has had persistent diarrhea since he was in the hospital. Onset: Unknown/Unsure Associated Symptoms: Reports: Confusion, Malaise, Weakness (Generalized weakness), Other (Persistent diarrhea). Denies: Nausea/Vomiting - Related Data Allergies Allergy/AdvReac Type Severity Reaction Status Date / Time No Known Allergies Allergy Verified 04/11/20 22:36 Home Meds: Home Meds Cyanocobalamin (Vitamin B12) [Vitamin B12] 1,000 mcg SL DAILY 02/02/13 [History] Doxazosin Mesylate [Cardura] 2 mg PO BEDTIME 02/02/13 [History] Lovastatin 80 mg PO BEDTIME 02/02/13 [History] Nitroglycerin [Nitrostat] 0.4 mg SL ASDIRECTED PRN 02/02/13 [History] PARoxetine [Paxil] 20 mg PO DAILY 02/02/13 [History] Vitamin B Complex 1 each PO DAILY 02/02/13 [History] Ferrous Sulfate 325 mg PO BID 01/07/18 [History] Aspirin [Low Dose Aspirin EC] 81 mg PO DAILY 11/18/18 [History] Triamcinolone Acetonide [Triamcinolone Acetonide 0.1% Crm] 1 appful TOP ASDIRECTED PRN 11/18/18 [History] Warfarin [Coumadin] 3 mg PO ASDIRECTED 11/18/18 [History] Metoprolol Tartrate 12.5 mg PO BID 09/15/19 [History] metFORMIN HCl [Metformin HCl] 1,000 mg PO BID 09/15/19 [History] Cholecalciferol (Vitamin D3) [Vitamin D3] 1,000 unit PO DAILY 03/21/20 [History] levETIRAcetam [Keppra] 500 mg PO BID #60 tab 03/22/20 [Rx] Past Medical History HEENT History: Reports: Cataract, Hard of Hearing, Impaired Vision Cardiovascular History: Reports: Bypass, High Cholesterol, Hypertension Other Cardiovascular History: External heart monitor placed October 23 2018 Respiratory History: Reports: Sleep Apnea Gastrointestinal History: Reports: Colon Polyp Genitourinary History: Reports: Other (See Below) Other Genitourinary History: renal failure Musculoskeletal History: Reports: Arthritis Neurological History: Reports: CVA, Neuropathy, Diabetic, TIA Psychiatric History: Reports: Anxiety, Depression, Mood Swings Endocrine/Metabolic History: Reports: Diabetes, Type II Hematologic History: Reports: B12 Deficiency, Iron Deficiency Immunologic History: Reports: None Oncologic (Cancer) History: Reports: None Dermatologic History: Reports: None - Infectious Disease History Infectious Disease History: Reports: Chicken Pox Other Infectious Disease History: unknown - Past Surgical History Head Surgeries/Procedures: Reports: None HEENT Surgical History: Reports: Cataract Surgery, Oral Surgery, Tonsillectomy Cardiovascular Surgical History: Reports: Coronary Artery Bypass, Pacer Respiratory Surgical History: Reports: None GI Surgical History: Reports: Bariatric Procedure, Cholecystectomy, Colonoscopy, EGD, Hernia Repair/Other Other GI Surgeries/Procedures: bariatric procedure 2007? Male Surgical History: Reports: None Endocrine Surgical History: Reports: None Neurological Surgical History: Reports: None Musculoskeletal Surgical History: Reports: Arthroscopic Knee, Other (See Below) Other Musculoskeletal Surgeries/Procedures:: meniscus tear repair Oncologic Surgical History: Reports: None Dermatological Surgical History: Reports: None Social & Family History - Family History Family Medical History: No Pertinent Family History - Tobacco Use Tobacco Use Status *Q: Never Tobacco User - Caffeine Use Caffeine Use: Reports: Soda - Recreational Drug Use Recreational Drug Use: No ED ROS GENERAL - Review of Systems Review Of Systems: See Below Constitutional: Reports: Malaise. Denies: Fever, Chills HEENT: Denies: Vision Change Respiratory: Denies: Shortness of Breath Cardiovascular: Denies: Chest Pain GI/Abdominal: Reports: Diarrhea. Denies: Abdominal Pain, Nausea, Vomiting Skin: Denies: Bruising Neurological: Reports: Confusion, Other (Dysarthria). Denies: Headache ED EXAM, GENERAL - Physical Exam Exam: See Below Exam Limited By: No Limitations General Appearance: Alert, No Apparent Distress, Other (Appears tired, confused) Eye Exam: Bilateral Eye: EOMI Head: Atraumatic Neck: Non-Tender Respiratory/Chest: Lungs Clear Cardiovascular: Regular Rate, Rhythm Extremities: Other (Still some weakness of the left leg compared to the right when holding against gravity) Neurological: Alert, Oriented, Slow to Respond (Somewhat slow to respond and somewhat dysarthric) Psychiatric: Anxious Course - Vital Signs Last Recorded V/S: Last Vital Signs Temp 96.4 F L 04/11/20 22:27 Pulse 74 04/11/20 22:27 Resp 20 04/11/20 22:27 BP 138/75 04/11/20 22:27 Pulse Ox 100 04/11/20 22:27 - Orders/Labs/Meds Labs: Laboratory Tests 04/11/20 04/11/20 04/11/20 Range/Units 23:00 23:00 23:00 WBC 7.8 (4.5-11.0) K/uL RBC 4.82 (4.30-5.90) M/uL Hgb 14.8 (12.0-15.0) g/dL Hct 44.4 (40.0-54.0) % MCV 92 (80-98) fL MCH 31 (27-31) pg MCHC 33 (32-36) % Plt Count 195 (150-400) K/uL Neut % (Auto) 63 (36-66) % Lymph % (Auto) 21 L (24-44) % [place] % (Auto) 8 H (2-6) % Eos % (Auto) 8 H (2-4) % Baso % (Auto) 1 (0-1) % PT 24.2 H (9.5-12.0) sec INR 2.26 H (0.80-1.20) Sodium 143 (140-148) mmol/L Potassium 3.7 (3.6-5.2) mmol/L Chloride 108 (100-108) mmol/L Carbon Dioxide 22 (21-32) mmol/L Anion Gap 12.6 (5.0-14.0) mmol/L BUN 16 (7-18) mg/dL Creatinine 1.4 H (0.8-1.3) mg/dL Est Cr Clr Drug Dosing 41.14 mL/min Estimated GFR (MDRD) 49 L (>60) Glucose 83 (74-106) mg/dL Calcium 9.2 (8.5-10.1) mg/dL - Re-Assessments/Exams Free Text/Narrative Re-Assessment/Exam: 04/11/20 23:13 CT the head was obtained, as well as a BMP CBC and INR. 04/11/20 23:45 CT was stable, BMP and CBC were unremarkable. INR 2.26. Patient is to be discharged home and will recheck with Dr. Mckeon on Saturday as scheduled. Departure - Departure Time of Disposition: 00:02 Disposition: Home, Self-Care 01 Clinical Impression: Dysarthria, CVA, old, dysarthria - Discharge Information Instructions: Stroke Prevention, [id number] Referrals: Oseas Mckeon MD [Primary Care Provider] - Forms: ED Department Discharge Care Plan Goals: You should restart your Coumadin tomorrow, a call from the Coumadin clinic should be expected. Recheck on Saturday with Dr. Mckeon as scheduled or return anytime sooner if worsening or concerns. Sepsis Event Note (ED) - Evaluation Sepsis Screening Result: No Definite Risk - Focused Exam Vital Signs: Vital Signs Temp Pulse Resp BP Pulse Ox 04/11/20 22:27 96.4 F L 74 20 138/75 100
--- NOTE | 2020-04-11 23:26 | CRLCT ---
INDICATION: Increased confusion. Dysarthria TECHNIQUE: CT head without contrast. COMPARISON: 03/23/2020 FINDINGS: The ventricles and sulci are stable. There is no mass effect or midline shift. Again seen is a chronic left temporoparietal infarct and chronic external capsule/subinsular and left basal ganglia lacunar infarcts. An ovoid low density focus in the posterior limb of the left internal capsule and small posteromedial thalamic lacunar infarcts were seen on the prior study. White matter hypodensities are suggestive of chronic small vessel ischemic changes. There is no loss of grady-white differentiation. There is no evidence of an acute intracranial hemorrhage. No acute calvarial fracture is seen. The visualized paranasal sinuses are clear. There is opacification of left mastoid tip air cells. Post cataract surgery changes are seen. IMPRESSION: Stable appearance of the brain. Chronic ischemic changes with old infarcts, again seen. No acute intracranial hemorrhage, mass effect or loss of grady-white differentiation. Left mastoid disease. Dictated by Irwin Manzano MD @ 04/11/2020 11:23:48 PM Please note that all CT scans at this facility use dose modulation, iterative reconstruction, and/or weight-based dosing when appropriate to reduce radiation dose to as low as reasonably achievable. Dictated by: Irwin Manzano MD @ 04/11/2020 23:23:52 (Electronically Signed)
== END 2020-04-12 00:02 | disposition home or self-care (01) ==
LOC: JP.ED 22:27
DX: I69.322 Dysarthria following cerebral infarction (principal); E78.00 Pure hypercholesterolemia, unspecified; I10 Essential (primary) hypertension; E11.40 Type 2 diabetes mellitus with diabetic neuropathy, unspecified; M19.90 Unspecified osteoarthritis, unspecified site; Z79.82 Long term (current) use of aspirin; Z79.84 Long term (current) use of oral hypoglycemic drugs; Z79.899 Other long term (current) drug therapy
CPT/HCPCS: 36415; 70450; 80048; 85025; 85610; 99285-25

== ENCOUNTER 2020-04-23 23:53 | Emergency (ER) | payer MEDICARE, BC ==
--- NOTE | 2020-04-23 23:57 | EDM.PDOC ---
ED HPI GENERAL MEDICAL PROBLEM - General Stated Complaint: MEDICAL [facility] [place] Time Seen by Provider: 04/23/20 23:55 Source of Information: Reports: Patient, Old Records History Limitations: Reports: No Limitations - History of Present Illness INITIAL COMMENTS - FREE TEXT/NARRATIVE: Cristobal is a 75-year-old male brought in by [facility] for evaluation of possible stroke. The patient was standing in his kitchen when his right leg started to become weak. He noticed that he was having some more difficulty with his right arm as well. The patient recently was seen and evaluated on 04/12/2020 for similar symptoms and at that time he also had mild dysarthria and confusion. His work-up was unremarkable. The patient does have a history of a stroke about a month ago which she was flown to [place] for. He is on Coumadin but that was recently held because his INR is supratherapeutic at 9. When EMS arrived at the patient's residence, he no longer had symptoms of weakness. His [place] stroke score was negative. He is quite anxious about having another stroke. He denies any headache, vision changes, shortness of breath or chest pain, palpitations, nausea, vomiting, or diarrhea. He is not experiencing any new numbness or tingling. Neurologically he reports that he is back to his baseline. - Related Data Allergies Allergy/AdvReac Type Severity Reaction Status Date / Time No Known Allergies Allergy Verified 04/24/20 00:01 Home Meds: Home Meds Cyanocobalamin (Vitamin B12) [Vitamin B12] 1,000 mcg SL DAILY 02/02/13 [History] Doxazosin Mesylate [Cardura] 2 mg PO BEDTIME 02/02/13 [History] Lovastatin 80 mg PO BEDTIME 02/02/13 [History] Nitroglycerin [Nitrostat] 0.4 mg SL ASDIRECTED PRN 02/02/13 [History] PARoxetine [Paxil] 20 mg PO DAILY 02/02/13 [History] Vitamin B Complex 1 each PO DAILY 02/02/13 [History] Ferrous Sulfate 325 mg PO BID 01/07/18 [History] Aspirin [Low Dose Aspirin EC] 81 mg PO DAILY 11/18/18 [History] Triamcinolone Acetonide [Triamcinolone Acetonide 0.1% Crm] 1 appful TOP ASDIRECTED PRN 11/18/18 [History] Warfarin [Coumadin] 3 mg PO ASDIRECTED 11/18/18 [History] Metoprolol Tartrate 12.5 mg PO BID 09/15/19 [History] metFORMIN HCl [Metformin HCl] 1,000 mg PO BID 09/15/19 [History] Cholecalciferol (Vitamin D3) [Vitamin D3] 1,000 unit PO DAILY 03/21/20 [History] Past Medical History HEENT History: Reports: Cataract, Hard of Hearing, Impaired Vision Cardiovascular History: Reports: Bypass, High Cholesterol, Hypertension Other Cardiovascular History: External heart monitor placed October 23 2018 Respiratory History: Reports: Sleep Apnea Gastrointestinal History: Reports: Colon Polyp Genitourinary History: Reports: Other (See Below) Other Genitourinary History: renal failure Musculoskeletal History: Reports: Arthritis Neurological History: Reports: CVA, Neuropathy, Diabetic, TIA Psychiatric History: Reports: Anxiety, Depression, Mood Swings Endocrine/Metabolic History: Reports: Diabetes, Type II Hematologic History: Reports: B12 Deficiency, Iron Deficiency Immunologic History: Reports: None Oncologic (Cancer) History: Reports: None Dermatologic History: Reports: None - Infectious Disease History Infectious Disease History: Reports: Chicken Pox Other Infectious Disease History: unknown - Past Surgical History Head Surgeries/Procedures: Reports: None HEENT Surgical History: Reports: Cataract Surgery, Oral Surgery, Tonsillectomy Cardiovascular Surgical History: Reports: Coronary Artery Bypass, Pacer Respiratory Surgical History: Reports: None GI Surgical History: Reports: Bariatric Procedure, Cholecystectomy, Colonoscopy, EGD, Hernia Repair/Other Other GI Surgeries/Procedures: bariatric procedure 2008? Male Surgical History: Reports: None Endocrine Surgical History: Reports: None Neurological Surgical History: Reports: None Musculoskeletal Surgical History: Reports: Arthroscopic Knee, Other (See Below) Other Musculoskeletal Surgeries/Procedures:: meniscus tear repair Oncologic Surgical History: Reports: None Dermatological Surgical History: Reports: None Social & Family History - Family History Family Medical History: No Pertinent Family History - Caffeine Use Caffeine Use: Reports: Soda ED ROS GENERAL - Review of Systems Review Of Systems: See Below Constitutional: Reports: No Symptoms HEENT: Reports: No Symptoms Respiratory: Reports: No Symptoms Cardiovascular: Reports: No Symptoms Endocrine: Reports: No Symptoms GI/Abdominal: Reports: No Symptoms : Reports: No Symptoms Musculoskeletal: Reports: No Symptoms Skin: Reports: No Symptoms Neurological: Reports: Difficulty Walking (Episode of right sided weakness that made it difficult for the patient to ambulate. It has resolved after 15 to 20 minutes.), Weakness (Acute onset of right lower extremity weakness that lasted about 15 to 20 minutes and is now resolved.). Denies: Confusion, Dizziness, Headache, Numbness, Paresthesia Psychiatric: Reports: Anxiety Immunologic: Reports: No Symptoms ED EXAM, NEURO - Physical Exam Exam: See Below Exam Limited By: No Limitations General Appearance: Alert, No Apparent Distress, Anxious Eye Exam: Bilateral Eye: EOMI, PERRL Throat/Mouth: Normal Inspection, Normal Lips, Normal Oropharynx, Normal Voice Head Exam: Atraumatic, Normocephalic Neck: Normal Inspection, Supple, Non-Tender, Full Range of Motion. No: Carotid Bruit Respiratory/Chest: No Respiratory Distress, Lungs Clear, Normal Breath Sounds Cardiovascular: Normal Peripheral Pulses, Regular Rate, Rhythm, No Murmur GI/Abdominal: Normal Bowel Sounds, Soft, Non-Tender Neurological: Alert, Normal Mood/Affect, Normal Dorsiflexion, CN II-XII Intact, Normal Plantar Flexion, No Motor/Sensory Deficits, Oriented x 3, Other (NIH stroke score of 0) DTR: 2+: Bicep (R), Bicep (L), Tricep (R), Tricep (L), Patella (R), Patella (L) Extremities: Normal Inspection, Normal Range of Motion, Non-Tender Psychiatric: Normal Affect, Normal Mood Skin Exam: Warm, Dry, Intact, Normal Color Course - Vital Signs Last Recorded V/S: Last Vital Signs Temp 36.5 C 04/24/20 00:09 Pulse 71 04/24/20 00:09 Resp 14 04/24/20 00:09 BP 131/74 04/24/20 00:09 Pulse Ox 97 04/24/20 00:09 - Orders/Labs/Meds Orders: Active Orders 24 hr Category Date Time Status UA W/MICROSCOPIC [URIN] Stat Lab 04/23/20 23:55 Ordered Labs: Laboratory Tests 04/23/20 04/23/20 04/23/20 Range/Units 00:14 00:14 00:14 WBC 7.6 (4.5-11.0) K/uL RBC 4.66 (4.30-5.90) M/uL Hgb 14.6 (12.0-15.0) g/dL Hct 42.6 (40.0-54.0) % MCV 91 (80-98) fL MCH 31 (27-31) pg MCHC 34 (32-36) % Plt Count 155 (150-400) K/uL Neut % (Auto) 55 (36-66) % Lymph % (Auto) 25 (24-44) % [place] % (Auto) 9 H (2-6) % Eos % (Auto) 10 H (2-4) % Baso % (Auto) 1 (0-1) % PT 69.3 H (9.5-12.0) sec INR 6.60 H* (0.80-1.20) APTT 45.7 H (27.0-36.0) sec Sodium 142 (140-148) mmol/L Potassium 3.3 L (3.6-5.2) mmol/L Chloride 106 (100-108) mmol/L Carbon Dioxide 22 (21-32) mmol/L Anion Gap 17.3 H (5.0-14.0) mmol/L BUN 13 (7-18) mg/dL Creatinine 1.3 (0.8-1.3) mg/dL Est Cr Clr Drug Dosing TNP Estimated GFR (MDRD) 54 L (>60) Glucose 76 (74-106) mg/dL Calcium 8.4 L (8.5-10.1) mg/dL Total Bilirubin 0.8 D (0.2-1.0) mg/dL AST 39 H D (15-37) U/L ALT 36 (12-78) U/L Alkaline Phosphatase 103 (46-116) U/L Total Protein 5.8 L (6.4-8.2) g/dL Albumin 3.0 L (3.4-5.0) g/dL Globulin 2.8 (2.3-3.5) g/dL Albumin/Globulin Ratio 1.1 L (1.2-2.2) - Radiology Interpretation Free Text/Narrative:: I reviewed the report on the CT head without contrast. There is no acute changes when compared to previous CTs of the head. Patient has old encephalomalacia from the left distal MCA stroke and has evidence of a more recent stroke involving the internal capsule on the left. There is no evidence for hemorrhage, mass-effect, or midline shift. - Re-Assessments/Exams Free Text/Narrative Re-Assessment/Exam: 04/24/20 00:49 I reviewed the patient's labs showing some improvement of his INR from 9.1-6.6. Patient's is still continue to hold his Coumadin and have his INR rechecked on Saturday in the Coumadin clinic. He also exhibits mild hypokalemia with a potassium of 3.3 and mild elevation of his AST. Otherwise, there is no significant abnormalities in his labs. As the patient has returned to baseline I believe he is suitable for discharge home. Departure - Departure Time of Disposition: 00:54 Disposition: Home, Self-Care 01 Condition: Good Clinical Impression: Transient right leg weakness, History of ischemic left MCA stroke, Supratherapeutic INR - Discharge Information *PRESCRIPTION DRUG MONITORING PROGRAM REVIEWED*: Not Applicable *COPY OF PRESCRIPTION DRUG MONITORING REPORT IN PATIENT BARRETT: Not Applicable Instructions: Transient Ischemic Attack, Ybdg-by-Othh Care Plan Goals: Your work-up today has not demonstrated any evidence for a new stroke. You likely had a small TIA which may have been an extension from your previous stroke. Your INR is still significantly elevated at 6.6 so I would continue to hold your Coumadin and talk with the Coumadin clinic on Saturday. At this time I think that you are suitable for discharge home. Sepsis Event Note (ED) - Focused Exam Vital Signs: Vital Signs Temp Pulse Resp BP Pulse Ox 04/24/20 00:09 36.5 C 71 14 131/74 97 - Problem List & Annotations (1) History of ischemic left MCA stroke SNOMED Code(s): 500493533, 043388997 Code(s): Z86.73 - PRSNL HX OF TIA (TIA), AND CEREB INFRC W/O RESID DEFICITS Status: Acute Priority: High Current Visit: Yes (2) Supratherapeutic INR SNOMED Code(s): 131588335 Code(s): R79.1 - ABNORMAL COAGULATION PROFILE Status: Acute Priority: High Current Visit: Yes (3) Transient right leg weakness SNOMED Code(s): 836273151 Code(s): R29.898 - OTH SYMPTOMS AND SIGNS INVOLVING THE MUSCULOSKELETAL SYSTEM Status: Acute Priority: High Current Visit: Yes - Problem List Review Problem List Initiated/Reviewed/Updated: Yes - My Orders Last 24 Hours: My Active Orders 04/23/20 23:55 UA W/MICROSCOPIC [URIN] Stat - Assessment/Plan Last 24 Hours: My Active Orders 04/23/20 23:55 UA W/MICROSCOPIC [URIN] Stat
[2020-04-24 00:10] VITALS: BP 131/74; PULSE 71
--- NOTE | 2020-04-24 00:37 | CRLCT ---
INDICATION: Intermittent right leg weakness. COMPARISON: Noncontrast CT of the head from 04/11/2020 TECHNIQUE: CT examination of the head was performed with 3 mm thick axial and coronal sections without intravenous contrast. Images were obtained from the vertex of the skull through the skull base, and I examined the images with the brain and bone windows. Please note that all CT scans at this facility use dose modulation, iterative reconstruction, and/or weight-based dosing when appropriate to reduce radiation dose to as low as reasonably achievable. FINDINGS: Again seen is the moderate sized old infarct in the left posterior parietal region, consistent with a distal left MCA infarct. There is stable mild ex vacuo dilatation of the posterior body and atrium of the left lateral ventricle adjacent to the old infarction. Again seen is a small area of old infarction in the subinsular white matter bilaterally, left greater than right, consistent with small vessel ischemia. Again seen are moderate-sized old lacunar infarcts in the left globus pallidus and the posterior limb of the left internal capsule. The rest of the brain is normal in appearance for the patient`s age on today`s study, with no sign of mass lesion, mass effect, hemorrhage, or edema. There is stable mild dilatation of the ventricles and sulci represent mild, age-appropriate atrophy. There is stable mild subcortical and periventricular white matter hypodensity from age-appropriate small-vessel ischemic change. Again seen are changes of bilateral cataract surgery. Again seen are senile calcifications along the nasal in temporal aspects of both globes. The visualized paranasal sinuses and mastoids are clear. The osseous structures are normal in their appearance with no sign of abnormality in the skull base or calvarium. IMPRESSION: No sign of acute injury to the brain. Stable old moderate-sized left posterior MCA infarct. Stable mild left greater than right infarction of the insular subcortical white matter. Stable appearance of several lacunar infarcts, moderate in size on the left. Stable mild, age-appropriate atrophy and mild, age-appropriate small-vessel ischemic changes. Please note that all CT scans at this facility use dose modulation, iterative reconstruction, and/or weight-based dosing when appropriate to reduce radiation dose to as low as reasonably achievable. Dictated by Favio Andino MD @ Apr 24 2020 12:31AM Signed by Dr. Favio Andino @ Apr 24 2020 12:36AM
== END 2020-04-24 01:15 | disposition home or self-care (01) ==
LOC: JP.ED 23:53
DX: M62.81 Muscle weakness (generalized) (principal); R79.1 Abnormal coagulation profile; E78.00 Pure hypercholesterolemia, unspecified; I10 Essential (primary) hypertension; E11.40 Type 2 diabetes mellitus with diabetic neuropathy, unspecified; M19.90 Unspecified osteoarthritis, unspecified site; E87.6 Hypokalemia; Z79.82 Long term (current) use of aspirin; Z86.73 Personal history of transient ischemic attack (TIA), and cerebral infarction without residual deficits; Z79.01 Long term (current) use of anticoagulants
CPT/HCPCS: 36415; 70450; 80053; 85025; 85610; 85730; 99283; 99285-25

== ENCOUNTER 2020-10-04 13:15 | Emergency (ER) | payer MEDICARE, BC ==
[2020-10-04] MEDS ORDERED: EPINEPHrine 1 MG/ML SDV IM ONE (13:22)
[2020-10-04] MEDS ORDERED: diphenhydrAMINE 50 MG/ML SDV IVPUSH ONE (13:22)
[2020-10-04] MEDS ORDERED: methylPREDNISolone Sodium Succinate 125 MG/2 ML SDV IV ONE (13:22)
--- NOTE | 2020-10-04 13:24 | EDM.PDOC ---
ED HPI GENERAL MEDICAL PROBLEM - General Chief Complaint: Bite:Animal, Insect Stated Complaint: 10 WASP STINGS Time Seen by Provider: 10/04/20 13:21 Source of Information: Reports: Patient, EMS, RN Notes Reviewed History Limitations: Reports: No Limitations - History of Present Illness INITIAL COMMENTS - FREE TEXT/NARRATIVE: 75-year-old gentleman presents emergency department today following multiple hornet stings, he accidentally got into hornets nest at his house has been stung multiple times face arms chest ankles. He thinks he may have a little bit of trouble breathing but no difficulty swallowing happened about 30 minutes prior arrived by EMS - Related Data Allergies Allergy/AdvReac Type Severity Reaction Status Date / Time No Known Allergies Allergy Verified 10/04/20 13:20 Home Meds: Home Meds Cyanocobalamin (Vitamin B12) [Vitamin B12] 1,000 mcg SL DAILY 02/02/13 [History] Doxazosin Mesylate [Cardura] 2 mg PO BEDTIME 02/02/13 [History] Lovastatin 80 mg PO BEDTIME 02/02/13 [History] Nitroglycerin [Nitrostat] 0.4 mg SL ASDIRECTED PRN 02/02/13 [History] PARoxetine [Paxil] 20 mg PO DAILY 02/02/13 [History] Vitamin B Complex 1 each PO DAILY 02/02/13 [History] Ferrous Sulfate 325 mg PO BID 01/07/18 [History] Aspirin [Low Dose Aspirin EC] 81 mg PO DAILY 11/18/18 [History] Triamcinolone Acetonide [Triamcinolone Acetonide 0.1% Crm] 1 appful TOP ASDIRECTED PRN 11/18/18 [History] Warfarin [Coumadin] 3 mg PO ASDIRECTED 11/18/18 [History] Metoprolol Tartrate 12.5 mg PO BID 09/15/19 [History] metFORMIN HCl [Metformin HCl] 1,000 mg PO BID 09/15/19 [History] Cholecalciferol (Vitamin D3) [Vitamin D3] 1,000 unit PO DAILY 03/21/20 [History] Past Medical History HEENT History: Reports: Cataract, Hard of Hearing, Impaired Vision Cardiovascular History: Reports: Bypass, CAD, High Cholesterol, Hypertension Other Cardiovascular History: External heart monitor placed October 23 2018 Respiratory History: Reports: Sleep Apnea Gastrointestinal History: Reports: Colon Polyp Genitourinary History: Reports: Other (See Below) Other Genitourinary History: renal failure Musculoskeletal History: Reports: Arthritis Neurological History: Reports: CVA, Neuropathy, Diabetic, TIA Psychiatric History: Reports: Anxiety, Depression, Mood Swings Endocrine/Metabolic History: Reports: Diabetes, Type II Hematologic History: Reports: B12 Deficiency, Iron Deficiency Immunologic History: Reports: None Oncologic (Cancer) History: Reports: None Dermatologic History: Reports: None - Infectious Disease History Infectious Disease History: Reports: Chicken Pox Other Infectious Disease History: unknown - Past Surgical History Head Surgeries/Procedures: Reports: None HEENT Surgical History: Reports: Cataract Surgery, Oral Surgery, Tonsillectomy Cardiovascular Surgical History: Reports: Coronary Artery Bypass, Pacer Respiratory Surgical History: Reports: None GI Surgical History: Reports: Bariatric Procedure, Cholecystectomy, Colonoscopy, EGD, Hernia Repair/Other Other GI Surgeries/Procedures: bariatric procedure 2007? Male Surgical History: Reports: None Endocrine Surgical History: Reports: None Neurological Surgical History: Reports: None Musculoskeletal Surgical History: Reports: Arthroscopic Knee, Other (See Below) Other Musculoskeletal Surgeries/Procedures:: meniscus tear repair Oncologic Surgical History: Reports: None Dermatological Surgical History: Reports: None Social & Family History - Family History Family Medical History: No Pertinent Family History - Caffeine Use Caffeine Use: Reports: Soda Caffeine Use Comment: juan ramon mancia ED ROS GENERAL - Review of Systems Review Of Systems: See Below Constitutional: Reports: No Symptoms HEENT: Reports: No Symptoms Respiratory: Reports: Shortness of Breath Cardiovascular: Reports: No Symptoms GI/Abdominal: Reports: No Symptoms ED EXAM, ANIMAL BITE - Physical Exam Exam: See Below Text/Narrative:: Multiple wasp type stainless with a small lesion followed by erythematous area around that with some edema face chest arms ankles Exam Limited By: No Limitations General Appearance: Alert, WD/WN, No Apparent Distress Respiratory/Chest: No Respiratory Distress, Lungs Clear, Normal Breath Sounds, No Accessory Muscle Use, Chest Non-Tender Cardiovascular: Regular Rate, Rhythm, No Murmur Course - Vital Signs Last Recorded V/S: Last Vital Signs Temp 97.8 F 10/04/20 13:25 Pulse 75 10/04/20 16:07 Resp 17 10/04/20 16:07 BP 119/63 10/04/20 16:07 Pulse Ox 94 L 10/04/20 16:07 - Orders/Labs/Meds Meds: Medications Discontinued Medications Generic Name Dose Route Start Last Admin Trade Name Yamilex PRKaveh Reason Stop Dose Admin Diphenhydramine HCl 50 mg 10/04/20 13:22 10/04/20 13:30 Diphenhydramine 50 Mg/Ml Sdv IVPUSH 10/04/20 13:23 50 mg ONETIME ONE Administration Epinephrine HCl 0.4 mg 10/04/20 13:22 10/04/20 13:31 Epinephrine 1 Mg/Ml Sdv IM 10/04/20 13:23 0.4 mg ONETIME ONE Administration Methylprednisolone Sodium Succinate 125 mg 10/04/20 13:22 10/04/20 13:30 Methylprednisolone Sodium Succinate 125 Mg/2 Ml Sdv IV 10/04/20 13:23 125 mg ONETIME ONE Administration Departure - Departure Time of Disposition: 16:43 Disposition: Home, Self-Care 01 Condition: Fair Clinical Impression: Allergic reaction Qualifiers: Encounter type: initial encounter Qualified Code(s): T78.40XA - Allergy, unspecified, initial encounter - Discharge Information Instructions: Insect Bite, Adult, [id number] Referrals: PCP,None [Primary Care Provider] - Forms: ED Department Discharge Additional Instructions: Continue with your regular medications, please followup with your primary care provider in 3-5 days if not better, please call return to the emergency department with worsening of symptoms. Sepsis Event Note (ED) - Focused Exam Vital Signs: Vital Signs Temp Pulse Resp BP Pulse Ox 10/04/20 16:07 75 17 119/63 94 L 10/04/20 15:21 95 17 105/55 L 90 L 10/04/20 14:04 99 16 156/60 H 98 10/04/20 13:34 84 19 138/69 95 10/04/20 13:25 97.8 F 73 12 130/75 99 10/04/20 13:21 97.8 F 73 12 130/75 99 - Assessment/Plan Plan: Assessment Acuity = acute Site and laterality = allergic reaction Etiology = wasp sting Manifestations = none Location of injury = Home Lab values = none Plan Good improvement combination of epinephrine, Solu-Medrol and Benadryl, was evaluated in the emergency department for about 4 4 hours. I did offer him an epinephrine pen he declined This note was dictated using [employer] voice recognition software please call with any questions on syntax or grammar.
[2020-10-04 16:52] VITALS: BP 104/83; PULSE 76
== END 2020-10-04 17:40 | disposition home or self-care (01) ==
LOC: JP.ED 13:15
DX: T63.461A Toxic effect of venom of wasps, accidental (unintentional), initial encounter (principal); I25.10 Atherosclerotic heart disease of native coronary artery without angina pectoris; E78.00 Pure hypercholesterolemia, unspecified; I10 Essential (primary) hypertension; M19.90 Unspecified osteoarthritis, unspecified site; E11.40 Type 2 diabetes mellitus with diabetic neuropathy, unspecified; Z86.73 Personal history of transient ischemic attack (TIA), and cerebral infarction without residual deficits; Z79.01 Long term (current) use of anticoagulants; Z79.899 Other long term (current) drug therapy; Z79.84 Long term (current) use of oral hypoglycemic drugs; Z79.82 Long term (current) use of aspirin; Z95.1 Presence of aortocoronary bypass graft
CPT/HCPCS: 96372; 96374; 96375; 99283; J0171; J1200; J2930

== ENCOUNTER 2020-10-19 12:23 | Emergency (ER) | payer MEDICARE, BC ==
[2020-10-19] MEDS ORDERED: Acetaminophen 500 MG Tab PO ONE (12:52)
--- NOTE | 2020-10-19 13:04 | EDM.PDOC ---
ED HPI GENERAL MEDICAL PROBLEM - General Chief Complaint: Headache Stated Complaint: SICK WITH A HEADACH Time Seen by Provider: 10/19/20 12:45 Source of Information: Reports: Patient, Old Records, RN History Limitations: Reports: No Limitations - History of Present Illness INITIAL COMMENTS - FREE TEXT/NARRATIVE: 75 yo male here with about a 3 hr duration of a dry cough and not feeling well. Has a mild CARROLL. No self tx or fever. Not SOB. Had the Adonis [employer]on[employer] Covid vaccine. Onset: Today Onset Date: 10/19/20 Onset Time: 10:00 Duration: Hour(s): (3), Constant Location: Reports: Chest Quality: Reports: Other (no pain) Severity: Mild Improves with: Reports: None Worsens with: Reports: None Context: Reports: Other (see HPI) Associated Symptoms: Reports: Cough, Headaches (mild), Malaise. Denies: Fever/Chills, Shortness of Breath Treatments GIVER: Reports: Other (see below) (none) Headache Pain Score (Numeric/FACES): 5 - Related Data Allergies Allergy/AdvReac Type Severity Reaction Status Date / Time No Known Allergies Allergy Verified 10/19/20 12:29 Home Meds: Home Meds Cyanocobalamin (Vitamin B12) [Vitamin B12] 1,000 mcg SL DAILY 02/02/13 [History] Doxazosin Mesylate [Cardura] 2 mg PO BEDTIME 02/02/13 [History] Lovastatin 80 mg PO BEDTIME 02/02/13 [History] Nitroglycerin [Nitrostat] 0.4 mg SL ASDIRECTED PRN 02/02/13 [History] PARoxetine [Paxil] 20 mg PO DAILY 02/02/13 [History] Vitamin B Complex 1 each PO DAILY 02/02/13 [History] Ferrous Sulfate 325 mg PO BID 01/07/18 [History] Triamcinolone Acetonide [Triamcinolone Acetonide 0.1% Crm] 1 appful TOP ASDIRECTED PRN 11/18/18 [History] Warfarin [Coumadin] 3 mg PO ASDIRECTED 11/18/18 [History] Metoprolol Tartrate 12.5 mg PO BID 09/15/19 [History] metFORMIN HCl [Metformin HCl] 1,000 mg PO BID 09/15/19 [History] Cholecalciferol (Vitamin D3) [Vitamin D3] 1,000 unit PO DAILY 03/21/20 [History] Past Medical History HEENT History: Reports: Cataract, Hard of Hearing, Impaired Vision Cardiovascular History: Reports: Bypass, CAD, High Cholesterol, Hypertension Other Cardiovascular History: External heart monitor placed October 23 2018 Respiratory History: Reports: Sleep Apnea Gastrointestinal History: Reports: Colon Polyp Genitourinary History: Reports: Other (See Below) Other Genitourinary History: renal failure Musculoskeletal History: Reports: Arthritis Neurological History: Reports: CVA, Neuropathy, Diabetic, TIA Psychiatric History: Reports: Anxiety, Depression, Mood Swings Endocrine/Metabolic History: Reports: Diabetes, Type II Hematologic History: Reports: B12 Deficiency, Iron Deficiency Immunologic History: Reports: None Oncologic (Cancer) History: Reports: None Dermatologic History: Reports: None - Infectious Disease History Infectious Disease History: Reports: Chicken Pox Other Infectious Disease History: unknown - Past Surgical History Head Surgeries/Procedures: Reports: None HEENT Surgical History: Reports: Cataract Surgery, Oral Surgery, Tonsillectomy Cardiovascular Surgical History: Reports: Coronary Artery Bypass, Pacer Respiratory Surgical History: Reports: None GI Surgical History: Reports: Bariatric Procedure, Cholecystectomy, Colonoscopy, EGD, Hernia Repair/Other Other GI Surgeries/Procedures: bariatric procedure 2007? Male Surgical History: Reports: None Endocrine Surgical History: Reports: None Neurological Surgical History: Reports: None Musculoskeletal Surgical History: Reports: Arthroscopic Knee, Other (See Below) Other Musculoskeletal Surgeries/Procedures:: meniscus tear repair Oncologic Surgical History: Reports: None Dermatological Surgical History: Reports: None Social & Family History - Family History Family Medical History: No Pertinent Family History - Tobacco Use Tobacco Use Status *Q: Never Tobacco User Second Hand Smoke Exposure: No - Caffeine Use Caffeine Use: Reports: Soda Caffeine Use Comment: juan ramon mancia - Recreational Drug Use Recreational Drug Use: No ED ROS GENERAL - Review of Systems Review Of Systems: See Below Constitutional: Reports: Malaise HEENT: Reports: No Symptoms Respiratory: Reports: Cough. Denies: Shortness of Breath, Wheezing, Sputum, Hemoptysis Cardiovascular: Reports: No Symptoms Endocrine: Reports: No Symptoms GI/Abdominal: Reports: No Symptoms : Reports: No Symptoms Musculoskeletal: Reports: No Symptoms Skin: Reports: No Symptoms ED EXAM, GENERAL - Physical Exam Exam: See Below Exam Limited By: No Limitations General Appearance: Alert, WD/WN, No Apparent Distress Eye Exam: Bilateral Eye: Normal Inspection Ears: Normal External Exam, Normal Canal, Hearing Grossly Normal, Normal TMs Ear Exam: Bilateral Ear: Auricle Normal, Canal Normal, TM normal Nose: Normal Inspection, No Blood Throat/Mouth: Normal Inspection, Normal Lips, Normal Oropharynx, Normal Voice, No Airway Compromise Head: Atraumatic, Normocephalic Neck: Normal Inspection Respiratory/Chest: No Respiratory Distress, Lungs Clear, Normal Breath Sounds, No Accessory Muscle Use Cardiovascular: Regular Rate, Rhythm, No Edema GI/Abdominal: Soft, Non-Tender Extremities: Normal Inspection, Normal Range of Motion, Non-Tender, No Pedal Edema Neurological: Alert, Oriented, CN II-XII Intact, Normal Cognition, No Motor/Sensory Deficits Psychiatric: Normal Affect, Normal Mood Skin Exam: Warm, Dry, Intact, Normal Color, No Rash Course - Vital Signs Last Recorded V/S: Last Vital Signs Temp 37.1 C 10/19/20 12:38 Pulse 83 10/19/20 13:53 Resp 15 10/19/20 12:38 BP 122/59 L 10/19/20 13:53 Pulse Ox 91 L 10/19/20 13:53 - Orders/Labs/Meds Labs: Laboratory Tests 10/19/20 10/19/20 10/19/20 Range/Units 13:03 13:03 13:03 WBC 12.7 H (4.5-11.0) K/uL RBC 4.21 L (4.30-5.90) M/uL Hgb 13.2 (12.0-15.0) g/dL Hct 39.4 L (40.0-54.0) % MCV 94 (80-98) fL MCH 31 (27-31) pg MCHC 34 (32-36) % Plt Count 172 (150-400) K/uL Sodium 144 (140-148) mmol/L Potassium 3.6 (3.6-5.2) mmol/L Chloride 107 (100-108) mmol/L Carbon Dioxide 26 (21-32) mmol/L Anion Gap 10.9 (5.0-14.0) mmol/L BUN 11 (7-18) mg/dL Creatinine 1.0 (0.8-1.3) mg/dL Est Cr Clr Drug Dosing 57.60 mL/min Estimated GFR (MDRD) > 60 (>60) Glucose 98 (74-106) mg/dL Calcium 8.0 L (8.5-10.1) mg/dL C-Reactive Protein 0.13 (0.0-0.3) mg/dL Urine Color (YELLOW) Urine Appearance (CLEAR) Urine pH (5.0-8.0) Ur Specific [place] (1.008-1.030) Urine Protein (NEGATIVE) mg/dL Urine Glucose (UA) (NEGATIVE) mg/dL Urine Ketones (NEGATIVE) mg/dL Urine Occult Blood (NEGATIVE) Urine Nitrite (NEGATIVE) Urine Bilirubin (NEGATIVE) Urine Urobilinogen (0.2-1.0) EU/dL Ur Leukocyte Esterase (NEGATIVE) Urine RBC (0-5) Urine WBC (0-5) Ur Epithelial Cells Amorphous Sediment Urine Bacteria Urine Mucus SARS CoV-2 RNA Rapid DONTE 10/19/20 10/19/20 Range/Units 13:33 13:43 WBC (4.5-11.0) K/uL RBC (4.30-5.90) M/uL Hgb (12.0-15.0) g/dL Hct (40.0-54.0) % MCV (80-98) fL MCH (27-31) pg MCHC (32-36) % Plt Count (150-400) K/uL Sodium (140-148) mmol/L Potassium (3.6-5.2) mmol/L Chloride (100-108) mmol/L Carbon Dioxide (21-32) mmol/L Anion Gap (5.0-14.0) mmol/L BUN (7-18) mg/dL Creatinine (0.8-1.3) mg/dL Est Cr Clr Drug Dosing mL/min Estimated GFR (MDRD) (>60) Glucose (74-106) mg/dL Calcium (8.5-10.1) mg/dL C-Reactive Protein (0.0-0.3) mg/dL Urine Color Yellow (YELLOW) Urine Appearance Clear (CLEAR) Urine pH 5.5 (5.0-8.0) Ur Specific [place] 1.020 (1.008-1.030) Urine Protein Negative (NEGATIVE) mg/dL Urine Glucose (UA) Negative (NEGATIVE) mg/dL Urine Ketones Negative (NEGATIVE) mg/dL Urine Occult Blood Negative (NEGATIVE) Urine Nitrite Negative (NEGATIVE) Urine Bilirubin Negative (NEGATIVE) Urine Urobilinogen 0.2 (0.2-1.0) EU/dL Ur Leukocyte Esterase Negative (NEGATIVE) Urine RBC Not seen (0-5) Urine WBC Not seen (0-5) Ur Epithelial Cells Not seen Amorphous Sediment Rare Urine Bacteria Not seen Urine Mucus Rare SARS CoV-2 RNA Rapid DONTE Negative Meds: Medications Discontinued Medications Generic Name Dose Route Start Last Admin Trade Name Freq PRN Reason Stop Dose Admin Acetaminophen 1,000 mg 10/19/20 12:52 10/19/20 12:55 Acetaminophen 500 Mg Tab PO 10/19/20 12:53 1,000 mg ONETIME ONE Administration - Radiology Interpretation Free Text/Narrative:: CXR- - Re-Assessments/Exams Free Text/Narrative Re-Assessment/Exam: 10/19/20 13:29 CXR-neg Departure - Departure Time of Disposition: 14:45 Disposition: Home, Self-Care 01 Condition: Fair Clinical Impression: Cough, Anxiety, Malaise Depression Qualifiers: Depression Type: unspecified Qualified Code(s): F32.9 - Major depressive disorder, single episode, unspecified - Discharge Information *PRESCRIPTION DRUG MONITORING PROGRAM REVIEWED*: Not Applicable *COPY OF PRESCRIPTION DRUG MONITORING REPORT IN PATIENT [place]RE[place]: Not Applicable Referrals: PCP,None [Primary Care Provider] - Forms: ED Department Discharge Additional Instructions: Continue your current medications. Take acetaminophen up to 1000 mg every 6 hrs as needed for headache or fever. F/U with Dr. Mckeon as scheduled. Sepsis Event Note (ED) - Evaluation Sepsis Screening Result: No Definite Risk - Focused Exam Vital Signs: Vital Signs Temp Pulse Resp BP Pulse Ox 10/19/20 13:53 83 122/59 L 91 L 10/19/20 12:53 84 136/82 97 10/19/20 12:39 79 136/70 92 L 10/19/20 12:38 37.1 C 90 15 144/66 H 96 10/19/20 12:31 37.1 C 90 15 144/66 H 96
--- NOTE | 2020-10-19 14:13 | CRLCR ---
For Patients: As a result of the Century Cures Act, medical imaging exams and procedure reports are released immediately into your electronic medical record. You may view this report before your referring provider. If you have questions, please contact your health care provider. INDICATION: Cough, malaise TECHNIQUE: Chest 2 views. COMPARISON: January 17, 2019 FINDINGS: Stable cardiac size. Status post median sternotomy. Two lead left-sided pacemaker appears intact. Mild pulmonary cephalization. No focal infiltrate, effusion, or pneumothorax. 1.0 cm density projects over the left costophrenic angle on the frontal view. IMPRESSION: No sign of acute pneumonia. Mild pulmonary cephalization. Pulmonary nodule versus calcified granuloma projecting over the left costophrenic angle. Consider chest CT for further evaluation. Dictated by Sierra Welch MD @ 10/19/2020 2:11:[address] Sierra Welch @ Oct 19 2020 2:11PM
[2020-10-19 14:20] VITALS: BP 122/59; PULSE 83
== END 2020-10-19 15:34 | disposition home or self-care (01) ==
LOC: JP.ED 12:23
DX: R05 Cough (principal); F32.9 Major depressive disorder, single episode, unspecified; F41.9 Anxiety disorder, unspecified; R53.81 Other malaise; I25.810 Atherosclerosis of coronary artery bypass graft(s) without angina pectoris; I10 Essential (primary) hypertension; E78.00 Pure hypercholesterolemia, unspecified; M19.90 Unspecified osteoarthritis, unspecified site; E11.40 Type 2 diabetes mellitus with diabetic neuropathy, unspecified; E61.1 Iron deficiency; Z79.84 Long term (current) use of oral hypoglycemic drugs; Z79.899 Other long term (current) drug therapy; Z20.822 Contact with and (suspected) exposure to COVID-19
CPT/HCPCS: 36415; 71046; 80048; 81001; 85027; 86140; 99284; A9270; U0002

== ENCOUNTER 2021-10-05 04:18 | Inpatient (IN) | payer MEDICARE, BC ==
[2021-10-05] MEDS ORDERED: Sodium Chloride 0.9% 10 ML Syringe FLUSH PRN ×2 (04:27→05:18)
[2021-10-05] MEDS ORDERED: fentaNYL 100 MCG/2 ML SDV IVPUSH ONE (04:29)
[2021-10-05 04:48] LABS: ESTIMATED GFR 63 mL/min (>60); TROPONIN I HIGH SENSITIVITY 26.5 pg/mL (<=60.3)
[2021-10-05] MEDS: Sodium Chloride 0.9% 10 ML Syringe FLUSH PRN (04:51)
[2021-10-05] MEDS ORDERED: Iopamidol 612 MG/ML 100 ML Bottle IV PRN (05:18)
[2021-10-05] MEDS ORDERED: Sodium Chloride 0.9% 50 ML IV ONE (05:18)
[2021-10-05] MEDS ORDERED: Phytonadione 10 MG in Sodium Chloride 0.9% 50 ML IV ONE (06:14)
[2021-10-05] MEDS ORDERED: Factor IX Complex Human 500 UNIT VIAL IVPUSH ONE ×2 (06:14→07:30)
[2021-10-05] MEDS ORDERED: fentaNYL 50 MCG/ML SDV IVPUSH ONE (09:57)
[2021-10-05] MEDS ORDERED: Magnesium Hydroxide 400 MG/5 ML Susp 30 ML Cup PO PRN (17:23)
[2021-10-05] MEDS ORDERED: Morphine 2 MG/ML SYRINGE IVPUSH PRN (17:23)
[2021-10-05] MEDS ORDERED: Docusate Sodium 100 MG Cap PO PRN (17:23)
[2021-10-05] MEDS ORDERED: Temazepam 15 MG Cap PO PRN (17:23)
[2021-10-05] MEDS ORDERED: Ondansetron 4 MG/2 ML SDV IV PRN (17:23)
[2021-10-05] MEDS: Sodium Chloride 0.9% 1,000 ML IV SCH (18:19)
[2021-10-05] MEDS ORDERED: Triamcinolone Acetonide 0.1% Crm 15 GM Tube TOP PRN (18:42)
[2021-10-05] MEDS ORDERED: Nitroglycerin 0.4 MG Tab.SL SL PRN (18:42)
[2021-10-05] MEDS: Acetaminophen/HYDROcodone 325-5 MG Tab PO PRN ×2 (18:59→23:53)
[2021-10-05] MEDS: Hydrocortisone 2.5% Crm 30 GM Tube TOP SCH ×2 (20:05→20:08)
[2021-10-05] MEDS: Calcium Carbonate/Vitamin D3 1500 MG-400 Units Tab PO SCH (20:06)
[2021-10-05] MEDS: atorvaSTATin 20 MG Tab PO SCH (20:06)
[2021-10-05] MEDS: Doxazosin 4 MG Tab PO SCH (20:06)
[2021-10-05] MEDS: Metoprolol Succinate 50 MG Tab.ER PO SCH (20:06)
[2021-10-05] MEDS: metFORMIN 500 MG Tab PO SCH ×2 (20:07)
[2021-10-05] MEDS: PARoxetine 20 MG Tab PO SCH (20:07)
[2021-10-05] MEDS ORDERED: Losartan 50 MG Tab ONE (20:49)
[2021-10-05] MEDS: Losartan 25 MG Tab PO SCH (20:51)
[2021-10-06] MEDS: Sodium Chloride 0.9% 1,000 ML IV SCH ×2 (02:33→10:25)
[2021-10-06] MEDS: Acetaminophen/HYDROcodone 325-5 MG Tab PO PRN ×2 (07:12→20:06)
[2021-10-06] MEDS: Calcium Carbonate/Vitamin D3 1500 MG-400 Units Tab PO SCH ×2 (08:49→20:07)
[2021-10-06] MEDS: Losartan 25 MG Tab PO SCH (08:50)
[2021-10-06] MEDS: Multivitamins with Iron Tab.Chew PO SCH ×2 (08:50→20:07)
[2021-10-06] MEDS: Doxazosin 4 MG Tab PO SCH (08:50)
[2021-10-06] MEDS: Hydrocortisone 2.5% Crm 30 GM Tube TOP SCH ×3 (08:52→20:08)
[2021-10-06] MEDS: metFORMIN 500 MG Tab PO SCH ×2 (08:54→20:06)
[2021-10-06] MEDS: Metoprolol Succinate 50 MG Tab.ER PO SCH (08:56)
[2021-10-06] MEDS: Vitamin B Complex Tab PO SCH (08:56)
[2021-10-06] MEDS: Cyanocobalamin (Vitamin B12) 1,000 MCG Tab SL SCH (08:56)
[2021-10-06] MEDS: PARoxetine 20 MG Tab PO SCH (08:59)
[2021-10-06] MEDS ORDERED: Vitamin B Complex Tab PO SCH (09:00)
[2021-10-06] MEDS ORDERED: Potassium Chloride 20 MEQ Tab.ER PO ONE ×2 (12:00→21:00)
[2021-10-06] MEDS ORDERED: Prochlorperazine 10 MG/2 ML SDV IVPUSH PRN (16:37)
[2021-10-06] MEDS ORDERED: Pantoprazole 40 MG in Sodium Chloride 0.9% 100 ML IV SCH (16:45)
[2021-10-06] MEDS: atorvaSTATin 20 MG Tab PO SCH (20:08)
[2021-10-07] MEDS: metFORMIN 500 MG Tab PO SCH ×2 (08:53→20:07)
[2021-10-07] MEDS: Aspirin 81 MG Tab.Chew PO SCH (08:53)
[2021-10-07] MEDS: Calcium Carbonate/Vitamin D3 1500 MG-400 Units Tab PO SCH ×2 (08:54→20:07)
[2021-10-07] MEDS: Cyanocobalamin (Vitamin B12) 1,000 MCG Tab SL SCH (08:54)
[2021-10-07] MEDS: Multivitamins with Iron Tab.Chew PO SCH ×2 (08:54→20:07)
[2021-10-07] MEDS: Vitamin B Complex Tab PO SCH (08:54)
[2021-10-07] MEDS: Doxazosin 4 MG Tab PO SCH (08:54)
[2021-10-07] MEDS: Metoprolol Succinate 50 MG Tab.ER PO SCH (08:54)
[2021-10-07] MEDS: Losartan 25 MG Tab PO SCH (08:54)
[2021-10-07] MEDS: PARoxetine 20 MG Tab PO SCH (08:55)
[2021-10-07] MEDS: Hydrocortisone 2.5% Crm 30 GM Tube TOP SCH ×2 (08:58→20:07)
[2021-10-07] MEDS: Acetaminophen/HYDROcodone 325-5 MG Tab PO PRN ×2 (11:41→22:27)
[2021-10-07] MEDS: atorvaSTATin 20 MG Tab PO SCH (20:06)
[2021-10-07] MEDS ORDERED: Benzocaine/Cetylpyridinium/Menthol Lozenge MUCMEM PRN (21:45)
[2021-10-08] MEDS: metFORMIN 500 MG Tab PO SCH ×2 (08:13→21:12)
[2021-10-08] MEDS: Losartan 25 MG Tab PO SCH (08:13)
[2021-10-08] MEDS: Multivitamins with Iron Tab.Chew PO SCH ×2 (08:13→21:12)
[2021-10-08] MEDS: Calcium Carbonate/Vitamin D3 1500 MG-400 Units Tab PO SCH ×2 (08:13→21:12)
[2021-10-08] MEDS: Vitamin B Complex Tab PO SCH (08:13)
[2021-10-08] MEDS: Cyanocobalamin (Vitamin B12) 1,000 MCG Tab SL SCH (08:13)
[2021-10-08] MEDS: Aspirin 81 MG Tab.Chew PO SCH (08:14)
[2021-10-08] MEDS: Doxazosin 4 MG Tab PO SCH (08:14)
[2021-10-08] MEDS: PARoxetine 20 MG Tab PO SCH (08:14)
[2021-10-08] MEDS: Metoprolol Succinate 50 MG Tab.ER PO SCH (08:15)
[2021-10-08] MEDS: Hydrocortisone 2.5% Crm 30 GM Tube TOP SCH ×2 (08:15→21:13)
[2021-10-08] MEDS ORDERED: Haloperidol Lactate 5 MG/ML SDV IM PRN (10:54)
[2021-10-08] MEDS: Acetaminophen/HYDROcodone 325-5 MG Tab PO PRN ×2 (15:44→21:32)
[2021-10-08 18:53] LABS: ESTIMATED GFR 89 mL/min (>60)
[2021-10-08] MEDS: atorvaSTATin 20 MG Tab PO SCH (21:13)
[2021-10-08] MEDS ORDERED: Potassium Chloride 20 MEQ in Premix Bag 1 BAG IV ONE (22:20)
[2021-10-08] MEDS ORDERED: Lidocaine 1% 5 ML VIAL INJECT ONE (22:27)
[2021-10-09] MEDS ORDERED: Sodium Chloride 0.9% 100 ML IV SCH (08:00)
[2021-10-09] MEDS ORDERED: Iopamidol 755 Mg/ML 100 ML Bottle IV SCH (08:00)
[2021-10-09] MEDS: Multivitamins with Iron Tab.Chew PO SCH ×2 (08:38→21:16)
[2021-10-09] MEDS: Aspirin 81 MG Tab.Chew PO SCH (08:38)
[2021-10-09] MEDS: Vitamin B Complex Tab PO SCH (08:38)
[2021-10-09] MEDS: Doxazosin 4 MG Tab PO SCH (08:39)
[2021-10-09] MEDS: Losartan 25 MG Tab PO SCH (08:39)
[2021-10-09] MEDS: Calcium Carbonate/Vitamin D3 1500 MG-400 Units Tab PO SCH ×2 (08:39→21:16)
[2021-10-09] MEDS: Cyanocobalamin (Vitamin B12) 1,000 MCG Tab SL SCH (08:40)
[2021-10-09] MEDS: PARoxetine 20 MG Tab PO SCH (08:40)
[2021-10-09] MEDS: metFORMIN 500 MG Tab PO SCH ×2 (08:40→21:16)
[2021-10-09] MEDS: Hydrocortisone 2.5% Crm 30 GM Tube TOP SCH ×2 (08:40→21:17)
[2021-10-09] MEDS: Metoprolol Succinate 50 MG Tab.ER PO SCH (08:40)
[2021-10-09] MEDS: Sodium Chloride 0.9% 10 ML Syringe FLUSH PRN (11:24)
[2021-10-09] MEDS: Potassium Chloride 20 MEQ Tab.ER PO SCH (17:02)
[2021-10-09] MEDS ORDERED: Potassium Chloride 20 MEQ, Lidocaine 1% 2 ML in Sodium Chloride 0.9% 100 ML IV ONE (17:30)
[2021-10-09] MEDS: atorvaSTATin 20 MG Tab PO SCH (21:17)
[2021-10-10] MEDS: Doxazosin 4 MG Tab PO SCH (08:25)
[2021-10-10] MEDS: PARoxetine 20 MG Tab PO SCH (08:25)
[2021-10-10] MEDS: Vitamin B Complex Tab PO SCH (08:25)
[2021-10-10] MEDS: Calcium Carbonate/Vitamin D3 1500 MG-400 Units Tab PO SCH (08:27)
[2021-10-10] MEDS: Metoprolol Succinate 50 MG Tab.ER PO SCH (08:27)
[2021-10-10] MEDS: Losartan 25 MG Tab PO SCH (08:27)
[2021-10-10] MEDS: metFORMIN 500 MG Tab PO SCH (08:28)
[2021-10-10] MEDS: Aspirin 81 MG Tab.Chew PO SCH (08:28)
[2021-10-10] MEDS: Hydrocortisone 2.5% Crm 30 GM Tube TOP SCH (08:28)
[2021-10-10] MEDS: Multivitamins with Iron Tab.Chew PO SCH (08:28)
[2021-10-10] MEDS: Cyanocobalamin (Vitamin B12) 1,000 MCG Tab SL SCH (08:28)
[2021-10-10] MEDS: Potassium Chloride 20 MEQ Tab.ER PO SCH (09:08)
[2021-10-10 15:45] VITALS: BP 132/55; PULSE 77
== END 2021-10-10 16:30 | disposition home health service (06) | DRG 813 ==
LOC: JP.ED 04:18 → JP.MS 16:51 → OBSVTOIN 10-06 12:04
PROVIDERS: ADMIT Internal Medicine; ATTEND Internal Medicine
DX: S30.1XXA Contusion of abdominal wall, initial encounter (principal); D68.32 Hemorrhagic disorder due to extrinsic circulating anticoagulants; D68.318 Other hemorrhagic disorder due to intrinsic circulating anticoagulants, antibodies, or inhibitors; D62 Acute posthemorrhagic anemia; M79.81 Nontraumatic hematoma of soft tissue; I48.91 Unspecified atrial fibrillation; K57.90 Diverticulosis of intestine, part unspecified, without perforation or abscess without bleeding; K80.20 Calculus of gallbladder without cholecystitis without obstruction; R79.1 Abnormal coagulation profile; H91.90 Unspecified hearing loss, unspecified ear; H54.7 Unspecified visual loss; I25.10 Atherosclerotic heart disease of native coronary artery without angina pectoris; F32.A Depression, unspecified; F41.9 Anxiety disorder, unspecified; E78.00 Pure hypercholesterolemia, unspecified; R41.0 Disorientation, unspecified; I10 Essential (primary) hypertension; G47.30 Sleep apnea, unspecified; K80.80 Other cholelithiasis without obstruction; X58.XXXA Exposure to other specified factors, initial encounter; Z20.822 Contact with and (suspected) exposure to COVID-19; T45.515A Adverse effect of anticoagulants, initial encounter; E86.0 Dehydration; M19.90 Unspecified osteoarthritis, unspecified site; E11.40 Type 2 diabetes mellitus with diabetic neuropathy, unspecified; E61.1 Iron deficiency; E53.8 Deficiency of other specified B group vitamins; Z86.19 Personal history of other infectious and parasitic diseases; Z98.49 Cataract extraction status, unspecified eye; Z90.89 Acquired absence of other organs; Z79.01 Long term (current) use of anticoagulants; Z98.84 Bariatric surgery status; Z79.82 Long term (current) use of aspirin; Z79.84 Long term (current) use of oral hypoglycemic drugs; Z79.899 Other long term (current) drug therapy; Z95.1 Presence of aortocoronary bypass graft; Z86.010 Personal history of colon polyps; Z86.73 Personal history of transient ischemic attack (TIA), and cerebral infarction without residual deficits; Z90.49 Acquired absence of other specified parts of digestive tract
CPT/HCPCS: 36415 ×2; 36430; 70450; 74177; 76705 ×3; 80048; 80053; 82140; 82947; 83605; 84145; 84484; 85025 ×4; 85610 ×3; 85730; 86900; 86901; 93005; 93010; 96365; 96367; 96375; 96376; 99285 ×2; A9270 ×20; J3010 ×2; J3430; J3490 ×5; J7030 ×3; J7168; P9017; Q9967; U0002; 70496; 70496-26; 80305-QW; 82272; 82607; 82728; 82803; 83550; 84443; 87046; 87899; 96361; 97110-GP; 97161-GP; 97530-GP; G0378; J2001; J3480

== ENCOUNTER 2022-07-14 19:56 | Inpatient (IN) | payer MEDICARE, BC ==
[2022-07-14] MEDS ORDERED: Sodium Chloride 0.9% 10 ML Syringe FLUSH PRN (20:03)
[2022-07-14] MEDS ORDERED: Sodium Chloride 0.9% 1,000 ML IV SCH (20:15)
[2022-07-14] MEDS ORDERED: cefTRIAXone 1 GM in Sodium Chloride 0.9% 50 ML IV ONE (20:23)
[2022-07-14] MEDS ORDERED: Doxycycline 100 MG in Sodium Chloride 0.9% 100 ML IV ONE (20:25)
[2022-07-14 20:49] LABS: ESTIMATED GFR 69 mL/min (>60); TROPONIN I HIGH SENSITIVITY 20.6 pg/mL (<=60.3)
[2022-07-14 21:29] LABS: CORONAVIRUS COVID-19 NAA NEGATIVE (NEGATIVE)
[2022-07-14] MEDS ORDERED: Ondansetron 4 MG/2 ML SDV IV PRN (22:12)
[2022-07-14] MEDS ORDERED: Melatonin 3 MG Tab PO PRN (22:12)
[2022-07-14] MEDS ORDERED: Acetaminophen 325 MG Tab PO PRN (22:12)
[2022-07-14] MEDS ORDERED: Ondansetron 4 MG Tab.DIS PO PRN (22:12)
[2022-07-14] MEDS ORDERED: Magnesium Hydroxide 400 MG/5 ML Susp 30 ML Cup PO PRN (22:12)
[2022-07-14] MEDS ORDERED: Albuterol 0.083% 2.5 MG/3 ML Neb Soln NEB PRN (22:12)
[2022-07-14] MEDS: Doxazosin 4 MG Tab PO SCH (22:31)
[2022-07-15] MEDS: Losartan 25 MG Tab PO SCH (08:21)
[2022-07-15] MEDS: PARoxetine 20 MG Tab PO SCH (08:22)
[2022-07-15] MEDS: Clopidogrel 75 MG Tab PO SCH (08:22)
[2022-07-15] MEDS: Lactobacillus Rhamnosus GG (Probiotic) Cap PO SCH ×2 (08:22→20:12)
[2022-07-15] MEDS: metFORMIN 500 MG Tab PO SCH ×2 (08:22→16:58)
[2022-07-15] MEDS: Aspirin 81 MG Tab.Chew PO SCH (08:22)
[2022-07-15] MEDS: Doxycycline 100 MG Cap PO SCH ×2 (08:23→20:12)
[2022-07-15] MEDS ORDERED: Potassium Chloride 20 MEQ Tab.ER PO ONE (09:00)
[2022-07-15] MEDS ORDERED: Metoprolol Succinate 50 MG Tab.ER PO SCH (09:00)
[2022-07-15] MEDS: Metoprolol Succinate 25 MG Tab.ER PO SCH ×2 (10:50→20:12)
[2022-07-15] MEDS: Ferrous Sulfate 325 MG Tab PO SCH (16:59)
[2022-07-15] MEDS: atorvaSTATin 20 MG Tab PO SCH (20:12)
[2022-07-15] MEDS: cefTRIAXone 1 GM in Sodium Chloride 0.9% 50 ML IV SCH (20:12)
[2022-07-15] MEDS: Doxazosin 4 MG Tab PO SCH (20:13)
[2022-07-16] MEDS: Ferrous Sulfate 325 MG Tab PO SCH ×2 (06:48→17:02)
[2022-07-16] MEDS: Clopidogrel 75 MG Tab PO SCH (08:22)
[2022-07-16] MEDS: PARoxetine 20 MG Tab PO SCH (08:22)
[2022-07-16] MEDS: Aspirin 81 MG Tab.Chew PO SCH (08:23)
[2022-07-16] MEDS: Lactobacillus Rhamnosus GG (Probiotic) Cap PO SCH ×2 (08:23→21:13)
[2022-07-16] MEDS: Metoprolol Succinate 25 MG Tab.ER PO SCH ×2 (08:23→21:17)
[2022-07-16] MEDS: Doxycycline 100 MG Cap PO SCH ×2 (08:23→21:17)
[2022-07-16] MEDS: metFORMIN 500 MG Tab PO SCH ×2 (08:23→17:02)
[2022-07-16] MEDS: Losartan 25 MG Tab PO SCH (08:24)
[2022-07-16] MEDS: cefTRIAXone 1 GM in Sodium Chloride 0.9% 50 ML IV SCH (21:10)
[2022-07-16] MEDS: Doxazosin 4 MG Tab PO SCH (21:13)
[2022-07-16] MEDS: atorvaSTATin 20 MG Tab PO SCH (21:13)
[2022-07-17] MEDS: Ferrous Sulfate 325 MG Tab PO SCH (06:05)
[2022-07-17] MEDS: Lactobacillus Rhamnosus GG (Probiotic) Cap PO SCH (08:00)
[2022-07-17] MEDS: metFORMIN 500 MG Tab PO SCH (08:00)
[2022-07-17] MEDS: Losartan 25 MG Tab PO SCH (08:00)
[2022-07-17] MEDS: Aspirin 81 MG Tab.Chew PO SCH (08:00)
[2022-07-17] MEDS: PARoxetine 20 MG Tab PO SCH (08:01)
[2022-07-17] MEDS: Metoprolol Succinate 25 MG Tab.ER PO SCH (08:01)
[2022-07-17] MEDS: Clopidogrel 75 MG Tab PO SCH (08:02)
[2022-07-17] MEDS: Doxycycline 100 MG Cap PO SCH (08:02)
[2022-07-17 11:17] VITALS: BP 146/87; PULSE 63
== END 2022-07-17 15:00 | disposition home or self-care (01) | DRG 194 ==
LOC: JP.ED 19:56 → JP.MS 21:42
PROVIDERS: ADMIT Internal Medicine; ATTEND Internal Medicine
DX: J18.9 Pneumonia, unspecified organism (principal); I42.9 Cardiomyopathy, unspecified; I48.11 Longstanding persistent atrial fibrillation; I50.42 Chronic combined systolic (congestive) and diastolic (congestive) heart failure; R41.0 Disorientation, unspecified; E78.00 Pure hypercholesterolemia, unspecified; I11.0 Hypertensive heart disease with heart failure; F41.9 Anxiety disorder, unspecified; Z20.822 Contact with and (suspected) exposure to COVID-19; F32.A Depression, unspecified; H91.90 Unspecified hearing loss, unspecified ear; H54.7 Unspecified visual loss; I34.0 Nonrheumatic mitral (valve) insufficiency; E11.9 Type 2 diabetes mellitus without complications; I25.10 Atherosclerotic heart disease of native coronary artery without angina pectoris; Z86.73 Personal history of transient ischemic attack (TIA), and cerebral infarction without residual deficits; Z79.82 Long term (current) use of aspirin; Z79.84 Long term (current) use of oral hypoglycemic drugs; Z90.49 Acquired absence of other specified parts of digestive tract; Z98.84 Bariatric surgery status
CPT/HCPCS: 0241U; 36415; 71045; 71045-26; 80048; 80053; 80307; 81001; 82140; 83605; 83690; 84145; 84443; 84484; 85025; 85027; 86140; 87040; 96365; 96367; 97161-GP; 97165-GO; 99285; 99285-25; A9270-GY; J0696; J3490; J7030

== ENCOUNTER 2022-09-02 19:30 | Inpatient (IN) | payer MEDICARE, BC ==
[2022-09-02] MEDS ORDERED: Sodium Chloride 0.9% 10 ML Syringe FLUSH PRN ×2 (19:47→20:51)
[2022-09-02 20:07] LABS: HEMATOCRIT 40.4 % (38.4-49.7); HEMOGLOBIN 14.1 g/dL (12.9-16.9); MEAN CORPUSCULAR HEMOGLOBIN 31.8 pg (31.6-35.5); MEAN CORPUSCULAR HGB CONC 34.9 g/dL (31.6-35.5); MEAN CORPUSCULAR VOLUME 91.2 fL (81.4-99.0); PLATELET COUNT,PLT 84 K/uL (130-375); RED BLOOD CELL COUNT 4.43 M/uL (4.14-5.76); WHITE BLOOD CELL COUNT,WBC 9.6 K/uL (3.2-11.0)
[2022-09-02 20:22] LABS: PROTHROMBIN TIME 38.9 sec (9.2-10.6)
[2022-09-02 20:24] LABS: INR 4.2
[2022-09-02 20:28] LABS: ATYPICAL LYMPHOCYTES MODERATE; EOSINOPHILS PERCENT MAN 1 % (2-4); LYMPHOCYTES ABSOLUTE MAN 3.46 K/uL (0.8-3.3); LYMPHOCYTES PERCENT MAN 36 % (24-44); METAMYELOCYTE PERCENT MAN 1 %; MONOCYTES ABSOLUTE MAN 0.29 K/uL (0.20-0.90); MONOCYTES PERCENT MAN 3 % (2-6); NEUTROPHILS ABSOLUTE MAN 5.66 K/uL (1.0-7.6); SEG NEUTROPHILS PERCENT MAN 59 % (36-66)
[2022-09-02] MEDS: Lactated Ringers 1,000 ML IV SCH ×2 (20:38→20:40)
[2022-09-02 20:40] LABS: A/G RATIO 0.7 (1.2-2.2); ALANINE AMINOTRANSFERASE,ALT 54 U/L (12-78); ALBUMIN 2.6 g/dL (3.4-5.0); ALKALINE PHOSPHATASE 71 U/L (46-116); ASPARTATE AMNIOTRANSFERASE,AST 119 U/L (15-37); BILIRUBIN TOTAL 1.9 mg/dL (0.2-1.0); C-REACTIVE PROTEIN 8.03 mg/dL (0.0-0.3); CALCIUM 8.7 mg/dL (8.5-10.1); CARBON DIOXIDE,CO2 23 mmol/L (21-32); CHLORIDE,CL 107 mmol/L (100-108); CREATININE 2.2 mg/dL (0.8-1.3); ESTIMATED GFR 30 mL/min (>60); GLUCOSE RANDOM 107 mg/dL (74-106); PROTEIN TOTAL,TP 6.2 g/dL (6.4-8.2); SODIUM,NA 146 mmol/L (140-148)
[2022-09-02 20:42] LABS: ANION GAP 18.9 mmol/L (5.0-14.0); CREATINE KINASE,CK 1089 U/L (39-308); POTASSIUM,K 2.9 mmol/L (3.6-5.2); TROPONIN I HIGH SENSITIVITY 60.8 pg/mL (<=60.3)
[2022-09-02 20:43] LABS: BLOOD UREA NITROGEN,BUN 83 mg/dL (7-18)
[2022-09-02] MEDS ORDERED: Potassium Chloride 10 MEQ in Premix Bag 2 BAG IV ONE (20:49)
[2022-09-02] MEDS ORDERED: cefTRIAXone 2 GM in Sodium Chloride 0.9% 50 ML IV ONE (20:51)
[2022-09-02] MEDS ORDERED: Potassium Chloride 100 ML ONE (21:19)
[2022-09-02 21:57] LABS: APPEARANCE,URINE TURBID (CLEAR); BILIRUBIN,URINE SMALL (NEGATIVE); COLOR,URINE YELLOW (YELLOW); GLUCOSE,URINE NEGATIVE (NEGATIVE); KETONES,URINE TRACE mg/dL (NEGATIVE); LEUKOCYTE ESTERASE,URINE NEGATIVE (NEGATIVE); NITRITE,URINE NEGATIVE (NEGATIVE); OCCULT BLOOD,URINE MODERATE (NEGATIVE); PROTEIN,URINE 100 mg/dL (NEGATIVE); UROBILINOGEN,URINE 0.2 EU/dL (0.2-1.0)
[2022-09-02 22:03] LABS: AMORPHOUS SEDIMENT,URINE PACKED; EPITHELIAL CELLS,URINE FEW; RBC,URINE 0-5 (0-5)
[2022-09-02 22:04] LABS: MUCUS,URINE FEW
[2022-09-02 22:05] LABS: BACTERIA,URINE FEW
[2022-09-02] MEDS ORDERED: Potassium Chloride 10 MEQ in Premix Bag 1 BAG IV ONE (23:00)
[2022-09-03] MEDS ORDERED: Sennosides/Docusate Sodium 50-8.6 MG Tab PO PRN (00:24)
[2022-09-03] MEDS ORDERED: Magnesium Hydroxide 400 MG/5 ML Susp 30 ML Cup PO PRN (00:24)
[2022-09-03] MEDS ORDERED: Ondansetron 4 MG Tab.DIS PO PRN (00:24)
[2022-09-03] MEDS ORDERED: Ondansetron 4 MG/2 ML SDV IV PRN (00:24)
[2022-09-03] MEDS ORDERED: Acetaminophen 325 MG Tab PO PRN (00:24)
[2022-09-03] MEDS: Melatonin 3 MG Tab PO PRN ×2 (00:37→23:43)
[2022-09-03 01:24] LABS: MAGNESIUM 2.3 mg/dL (1.8-2.4); PHOSPHORUS 3.4 mg/dL (2.5-4.9)
[2022-09-03] MEDS: Potassium Chloride 10 MEQ in Premix Bag 1 BAG IV SCH ×3 (01:47→05:50)
[2022-09-03] MEDS: Sodium Chloride 0.9% 1,000 ML IV SCH ×3 (02:14→19:53)
[2022-09-03 05:05] LABS: C-REACTIVE PROTEIN 5.62 mg/dL (0.0-0.3); CALCIUM 8.2 mg/dL (8.5-10.1); CREATININE 1.9 mg/dL (0.8-1.3); EST CRCL DRUG DOSING (CG) 27.39 mL/min; MAGNESIUM 2.1 mg/dL (1.8-2.4); POTASSIUM,K 3.4 mmol/L (3.6-5.2)
[2022-09-03 05:07] LABS: ANION GAP 13.4 mmol/L (5.0-14.0)
[2022-09-03] MEDS: Pantoprazole 40 MG Tab.CR PO SCH (08:18)
[2022-09-03] MEDS ORDERED: Hydrocortisone Acetate 25 MG Supp RECTAL PRN (09:31)
[2022-09-03] MEDS ORDERED: Potassium Chloride 20 MEQ Tab.ER PO ONE (10:00)
[2022-09-03] MEDS: PARoxetine 20 MG Tab PO SCH (10:24)
[2022-09-03] MEDS: diphenhydrAMINE 50 MG/ML SDV IV PRN (10:24)
[2022-09-03] MEDS: Cyanocobalamin (Vitamin B12) 1,000 MCG Tab PO SCH (10:25)
[2022-09-03 11:12] LABS: INR 3.9; PROTHROMBIN TIME 36.2 sec (9.2-10.6)
[2022-09-04] MEDS: Sodium Chloride 0.9% 1,000 ML IV SCH ×3 (03:50→19:50)
[2022-09-04 05:44] LABS: INR 2.6; PROTHROMBIN TIME 24.6 sec (9.2-10.6)
[2022-09-04] MEDS: diphenhydrAMINE 50 MG/ML SDV IV PRN (06:17)
[2022-09-04] MEDS: PARoxetine 20 MG Tab PO SCH (08:22)
[2022-09-04] MEDS: Pantoprazole 40 MG Tab.CR PO SCH (08:22)
[2022-09-04] MEDS: Cyanocobalamin (Vitamin B12) 1,000 MCG Tab PO SCH (08:23)
[2022-09-04 09:30] LABS: CALCIUM 7.9 mg/dL (8.5-10.1); CREATININE 1.6 mg/dL (0.8-1.3); EST CRCL DRUG DOSING (CG) 32.52 mL/min; POTASSIUM,K 3.2 mmol/L (3.6-5.2)
[2022-09-04 09:32] LABS: ANION GAP 11.2 mmol/L (5.0-14.0)
[2022-09-04] MEDS: predniSONE 10 MG Tab PO SCH (10:40)
[2022-09-04] MEDS ORDERED: Ketorolac 30 MG/ML SDV IVPUSH ONE (12:17)
[2022-09-04] MEDS ORDERED: Potassium Chloride 20 MEQ Tab.ER PO ONE ×2 (14:45→17:58)
[2022-09-05] MEDS: Sodium Chloride 0.9% 1,000 ML IV SCH (03:36)
[2022-09-05 06:02] LABS: INR 2.2; PROTHROMBIN TIME 21.2 sec (9.2-10.6)
[2022-09-05] MEDS: Pantoprazole 40 MG Tab.CR PO SCH (07:35)
[2022-09-05] MEDS: predniSONE 10 MG Tab PO SCH (08:10)
[2022-09-05] MEDS: Cyanocobalamin (Vitamin B12) 1,000 MCG Tab PO SCH (08:10)
[2022-09-05] MEDS: PARoxetine 20 MG Tab PO SCH (08:10)
[2022-09-05 10:12] VITALS: BP 146/97; PULSE 93
[2022-09-05 11:40] LABS: CALCIUM 7.8 mg/dL (8.5-10.1); CREATININE 1.4 mg/dL (0.8-1.3); EST CRCL DRUG DOSING (CG) 37.17 mL/min; POTASSIUM,K 4.1 mmol/L (3.6-5.2)
[2022-09-05 11:41] LABS: ANION GAP 14.1 mmol/L (5.0-14.0)
== END 2022-09-05 14:57 | DRG 565 ==
LOC: JP.ED 19:30 → JP.MS 23:55
PROVIDERS: ADMIT Internal Medicine; ATTEND Internal Medicine
DX: T79.6XXA Traumatic ischemia of muscle, initial encounter (principal); I42.9 Cardiomyopathy, unspecified; N17.9 Acute kidney failure, unspecified; I48.20 Chronic atrial fibrillation, unspecified; Z20.822 Contact with and (suspected) exposure to COVID-19; I48.91 Unspecified atrial fibrillation; I50.42 Chronic combined systolic (congestive) and diastolic (congestive) heart failure; I10 Essential (primary) hypertension; E86.0 Dehydration; R79.1 Abnormal coagulation profile; E87.6 Hypokalemia; W18.30XA Fall on same level, unspecified, initial encounter; G47.33 Obstructive sleep apnea (adult) (pediatric); E11.40 Type 2 diabetes mellitus with diabetic neuropathy, unspecified; I25.10 Atherosclerotic heart disease of native coronary artery without angina pectoris; Z95.1 Presence of aortocoronary bypass graft; F41.9 Anxiety disorder, unspecified; Z86.718 Personal history of other venous thrombosis and embolism; W19.XXXA Unspecified fall, initial encounter; E78.00 Pure hypercholesterolemia, unspecified; I11.0 Hypertensive heart disease with heart failure; H91.90 Unspecified hearing loss, unspecified ear; Z79.84 Long term (current) use of oral hypoglycemic drugs; Z79.899 Other long term (current) drug therapy; Z79.82 Long term (current) use of aspirin; Z98.890 Other specified postprocedural states; Z86.73 Personal history of transient ischemic attack (TIA), and cerebral infarction without residual deficits; Z86.010 Personal history of colon polyps; Z79.01 Long term (current) use of anticoagulants; Z95.0 Presence of cardiac pacemaker; Z90.49 Acquired absence of other specified parts of digestive tract; Y92.89 Other specified places as the place of occurrence of the external cause
CPT/HCPCS: 36415; 70450; 71045; 71045-26; 73521; 73521-26; 80048; 80053; 80143; 80179; 80307; 81001; 82140; 82550; 83605; 83735; 84100; 84145; 84443; 84484; 85025; 85610; 86140; 87040; 93005; 93010; 96361; 96365; 96367; 96368; 97161-GP; 97165-GO; 97530-GP; 99223; 99233; 99239; 99285; 99285-25; A9270-GY; J0696; J1200; J3480; J3490; J7030; J7120; J7512; U0002

== ENCOUNTER 2023-04-01 14:28 | Inpatient (IN) | payer BC, MEDICARE ==
[2023-04-01 15:37] LABS: BASOPHILS ABSOLUTE AUTO 0.04 K/uL (0.00-0.10); BASOPHILS PERCENT AUTO 0.5 % (0.1-1.3); EOSINOPHILS ABSOLUTE AUTO 0.13 K/uL (0.00-0.40); EOSINOPHILS PERCENT AUTO 1.6 % (0.0-5.4); HEMATOCRIT 37.5 % (38.4-49.7); HEMOGLOBIN 13.1 g/dL (12.9-16.9); IMMATURE GRAN PERCENT AUTO 0.2 % (0.0-0.7); MEAN CORPUSCULAR HEMOGLOBIN 33.7 pg (31.6-35.5); MEAN CORPUSCULAR HGB CONC 34.9 g/dL (31.6-35.5); MEAN CORPUSCULAR VOLUME 96.4 fL (81.4-99.0); MONOCYTES ABSOLUTE AUTO 0.61 K/uL (0.20-0.90); MONOCYTES PERCENT AUTO 7.4 % (3.3-12.6); NEUTROPHILS ABSOLUTE AUTO 5.59 K/uL (1.0-7.6); NEUTROPHILS PERCENT AUTO 68.3 % (40.0-78.1); PLATELET COUNT,PLT 169 K/uL (130-375); RED BLOOD CELL COUNT 3.89 M/uL (4.14-5.76); WHITE BLOOD CELL COUNT,WBC 8.2 K/uL (3.2-11.0)
[2023-04-01 15:44] LABS: IMMATURE GRAN ABSOLUTE AUTO 0.02 K/uL (0.00-0.23)
[2023-04-01 16:06] LABS: A/G RATIO 0.7 (1.2-2.2); ALANINE AMINOTRANSFERASE,ALT 53 U/L (12-78); ALBUMIN 2.4 g/dL (3.4-5.0); ALKALINE PHOSPHATASE 104 U/L (46-116); ASPARTATE AMNIOTRANSFERASE,AST 48 U/L (15-37); BILIRUBIN TOTAL 1.1 mg/dL (0.2-1.0); BLOOD UREA NITROGEN,BUN 16 mg/dL (7-18); CALCIUM 7.6 mg/dL (8.5-10.1); CARBON DIOXIDE,CO2 27 mmol/L (21-32); CHLORIDE,CL 106 mmol/L (100-108); CREATINE KINASE,CK 30 U/L (39-308); CREATININE 1.8 mg/dL (0.8-1.3); ESTIMATED GFR 38 mL/min (>60); GLUCOSE RANDOM 129 mg/dL (74-106); PROTEIN TOTAL,TP 5.7 g/dL (6.4-8.2); SODIUM,NA 139 mmol/L (140-148); TROPONIN I HIGH SENSITIVITY 21.4 pg/mL (<=60.3)
[2023-04-01 16:07] LABS: ANION GAP 8.9 mmol/L (5.0-14.0); POTASSIUM,K 2.9 mmol/L (3.6-5.2)
[2023-04-01 16:26] LABS: CORONAVIRUS COVID-19 NAA NEGATIVE (NEGATIVE); INFLUENZA A NAA NEGATIVE (NEGATIVE); INFLUENZA B NAA NEGATIVE (NEGATIVE); RESPIRATORY SYNCYTIAL VIR NAA NEGATIVE (NEGATIVE)
[2023-04-01] MEDS: Sodium Chloride 0.9% 1,000 ML IV SCH (17:22)
[2023-04-01 17:42] LABS: INR 1.4; PROTHROMBIN TIME 14.2 sec (9.2-10.6)
[2023-04-01] MEDS ORDERED: Potassium Chloride 20 MEQ Tab.ER PO ONE (17:52)
[2023-04-01] MEDS ORDERED: Magnesium Hydroxide 400 MG/5 ML Susp 30 ML Cup PO PRN (18:11)
[2023-04-01] MEDS ORDERED: Ondansetron 4 MG Tab.DIS PO PRN (18:11)
[2023-04-01] MEDS ORDERED: Sennosides/Docusate Sodium 50-8.6 MG Tab PO PRN (18:11)
[2023-04-01] MEDS ORDERED: Ondansetron 4 MG/2 ML SDV IV PRN (18:11)
[2023-04-01] MEDS ORDERED: Acetaminophen 325 MG Tab PO PRN (18:11)
[2023-04-01] MEDS ORDERED: Melatonin 3 MG Tab PO PRN (18:11)
[2023-04-01] MEDS: Potassium Chloride 10 MEQ in Premix Bag 1 BAG IV SCH ×2 (18:53→20:19)
[2023-04-01] MEDS ORDERED: Magnesium Sulfate/Water 2 GM in Premix Bag 1 BAG IV SCH (19:30)
[2023-04-01] MEDS: Doxazosin 4 MG Tab PO SCH (20:21)
[2023-04-01] MEDS: Docusate Sodium 100 MG Cap PO SCH (20:22)
[2023-04-01] MEDS: atorvaSTATin 20 MG Tab PO SCH (20:23)
[2023-04-01] MEDS ORDERED: Metoprolol Succinate 50 MG Tab.ER PO SCH (21:00)
[2023-04-01] MEDS: Insulin Lispro 100 Unit/ML 3 ML KwikPen SUBCUT SCH (21:44)
[2023-04-01] MEDS: Magnesium Sulfate/Water 2 GM in Premix Bag 1 BAG IV SCH (22:15)
[2023-04-02] MEDS: Magnesium Sulfate/Water 2 GM in Premix Bag 1 BAG IV SCH ×3 (03:29→15:23)
[2023-04-02 04:54] LABS: HEMOGLOBIN 11.4 g/dL (12.9-16.9); MEAN CORPUSCULAR HEMOGLOBIN 33.5 pg (31.6-35.5); MEAN CORPUSCULAR HGB CONC 34.5 g/dL (31.6-35.5); MEAN CORPUSCULAR VOLUME 97.1 fL (81.4-99.0); RED BLOOD CELL COUNT 3.4 M/uL (4.14-5.76); WHITE BLOOD CELL COUNT,WBC 8.3 K/uL (3.2-11.0)
[2023-04-02 05:08] LABS: CALCIUM 7.6 mg/dL (8.5-10.1); CREATININE 1.6 mg/dL (0.8-1.3); EST CRCL DRUG DOSING (CG) 31.13 mL/min; POTASSIUM,K 3.5 mmol/L (3.6-5.2)
[2023-04-02 05:15] LABS: ANION GAP 10.5 mmol/L (5.0-14.0)
[2023-04-02] MEDS: Sodium Chloride 0.9% 1,000 ML IV SCH ×2 (06:42→17:09)
[2023-04-02] MEDS ORDERED: Potassium Chloride 20 MEQ Tab.ER PO ONE (07:55)
[2023-04-02] MEDS: Insulin Lispro 100 Unit/ML 3 ML KwikPen SUBCUT SCH (09:03)
[2023-04-02] MEDS: Vitamin B Complex Tab PO SCH (09:07)
[2023-04-02] MEDS: Aspirin 81 MG Tab.Chew PO SCH (09:07)
[2023-04-02] MEDS: Docusate Sodium 100 MG Cap PO SCH ×2 (09:07→20:48)
[2023-04-02] MEDS: PARoxetine 20 MG Tab PO SCH (09:07)
[2023-04-02] MEDS: Multivitamins with Iron Tab.Chew PO SCH (09:07)
[2023-04-02] MEDS: Losartan 25 MG Tab PO SCH (09:08)
[2023-04-02] MEDS: Metoprolol Succinate 25 MG Tab.ER PO SCH ×2 (09:08→20:48)
[2023-04-02 09:18] LABS: APPEARANCE,URINE TURBID (CLEAR); BILIRUBIN,URINE NEGATIVE (NEGATIVE); COLOR,URINE YELLOW (YELLOW); GLUCOSE,URINE NEGATIVE (NEGATIVE); KETONES,URINE NEGATIVE (NEGATIVE); LEUKOCYTE ESTERASE,URINE TRACE (NEGATIVE); NITRITE,URINE NEGATIVE (NEGATIVE); OCCULT BLOOD,URINE MODERATE (NEGATIVE); PH,URINE 5.5 (5.0-8.0); PROTEIN,URINE 30 mg/dL (NEGATIVE); UROBILINOGEN,URINE 0.2 EU/dL (0.2-1.0)
[2023-04-02 09:25] LABS: BACTERIA,URINE FEW; EPITHELIAL CELLS,URINE FEW; MUCUS,URINE MODERATE; RBC,URINE 20-30 (0-5)
[2023-04-02 09:26] LABS: AMORPHOUS SEDIMENT,URINE FEW
[2023-04-02] MEDS: Doxazosin 4 MG Tab PO SCH (20:47)
[2023-04-02] MEDS: atorvaSTATin 20 MG Tab PO SCH (20:48)
[2023-04-03] MEDS: Sodium Chloride 0.9% 1,000 ML IV SCH (03:12)
[2023-04-03 05:56] LABS: CALCIUM 7.2 mg/dL (8.5-10.1); CREATININE 1.5 mg/dL (0.8-1.3); EST CRCL DRUG DOSING (CG) 33.2 mL/min; POTASSIUM,K 3.6 mmol/L (3.6-5.2)
[2023-04-03 06:33] LABS: ANION GAP 12.6 mmol/L (5.0-14.0)
[2023-04-03] MEDS: PARoxetine 20 MG Tab PO SCH (08:20)
[2023-04-03] MEDS: Docusate Sodium 100 MG Cap PO SCH ×2 (08:20→20:09)
[2023-04-03] MEDS: Vitamin B Complex Tab PO SCH (08:20)
[2023-04-03] MEDS: Losartan 25 MG Tab PO SCH (08:20)
[2023-04-03] MEDS: metFORMIN 500 MG Tab PO SCH ×2 (08:20→17:13)
[2023-04-03] MEDS: Aspirin 81 MG Tab.Chew PO SCH (08:20)
[2023-04-03] MEDS: Multivitamins with Iron Tab.Chew PO SCH (08:20)
[2023-04-03] MEDS: Metoprolol Succinate 25 MG Tab.ER PO SCH ×2 (08:21→20:12)
[2023-04-03] MEDS ORDERED: Potassium Chloride 20 MEQ Tab.ER PO ONE (09:00)
[2023-04-03] MEDS: atorvaSTATin 20 MG Tab PO SCH (20:11)
[2023-04-03] MEDS: Doxazosin 4 MG Tab PO SCH (20:12)
[2023-04-04] MEDS: Aspirin 81 MG Tab.Chew PO SCH (08:57)
[2023-04-04] MEDS: metFORMIN 500 MG Tab PO SCH (08:57)
[2023-04-04] MEDS: Multivitamins with Iron Tab.Chew PO SCH (08:57)
[2023-04-04] MEDS: PARoxetine 20 MG Tab PO SCH (08:58)
[2023-04-04] MEDS: Docusate Sodium 100 MG Cap PO SCH ×2 (08:58→20:27)
[2023-04-04] MEDS: Vitamin B Complex Tab PO SCH (08:58)
[2023-04-04] MEDS: Metoprolol Succinate 25 MG Tab.ER PO SCH (09:08)
[2023-04-04] MEDS ORDERED: Sodium Chloride 0.9% 1,000 ML IV ONE (09:44)
[2023-04-04 10:34] LABS: BASOPHILS PERCENT AUTO 0.4 % (0.1-1.3); EOSINOPHILS PERCENT AUTO 1.4 % (0.0-5.4); HEMATOCRIT 32.6 % (38.4-49.7); HEMOGLOBIN 10.8 g/dL (12.9-16.9); LYMPHOCYTES PERCENT AUTO 23.1 % (11.4-47.7); MEAN CORPUSCULAR HEMOGLOBIN 33.8 pg (31.6-35.5); MEAN CORPUSCULAR HGB CONC 33.1 g/dL (31.6-35.5); MEAN CORPUSCULAR VOLUME 101.9 fL (81.4-99.0); MONOCYTES PERCENT AUTO 6.2 % (3.3-12.6); NEUTROPHILS PERCENT AUTO 68.5 % (40.0-78.1); PLATELET COUNT,PLT 141 K/uL (130-375); WHITE BLOOD CELL COUNT,WBC 8.5 K/uL (3.2-11.0)
[2023-04-04 10:35] LABS: BASOPHILS ABSOLUTE AUTO 0.03 K/uL (0.00-0.10); EOSINOPHILS ABSOLUTE AUTO 0.12 K/uL (0.00-0.40); IMMATURE GRAN ABSOLUTE AUTO 0.03 K/uL (0.00-0.23); IMMATURE GRAN PERCENT AUTO 0.4 % (0.0-0.7); LYMPHOCYTES ABSOLUTE AUTO 1.96 K/uL (0.8-3.3); MONOCYTES ABSOLUTE AUTO 0.53 K/uL (0.20-0.90); NEUTROPHILS ABSOLUTE AUTO 5.83 K/uL (1.0-7.6)
[2023-04-04 11:02] LABS: A/G RATIO 0.6 (1.2-2.2); ALANINE AMINOTRANSFERASE,ALT 37 U/L (12-78); ALBUMIN 1.8 g/dL (3.4-5.0); ALKALINE PHOSPHATASE 91 U/L (46-116); ASPARTATE AMNIOTRANSFERASE,AST 30 U/L (15-37); BILIRUBIN TOTAL 0.6 mg/dL (0.2-1.0); BLOOD UREA NITROGEN,BUN 16 mg/dL (7-18); C-REACTIVE PROTEIN 0.77 mg/dL (<0.50); CALCIUM 7.6 mg/dL (8.5-10.1); CARBON DIOXIDE,CO2 20 mmol/L (21-32); CHLORIDE,CL 111 mmol/L (100-108); CREATININE 1.7 mg/dL (0.8-1.3); EST CRCL DRUG DOSING (CG) 29.29 mL/min; ESTIMATED GFR 41 mL/min (>60); GLUCOSE RANDOM 135 mg/dL (74-106); MAGNESIUM 2.2 mg/dL (1.8-2.4); POTASSIUM,K 3.5 mmol/L (3.6-5.2); PROTEIN TOTAL,TP 4.7 g/dL (6.4-8.2); SODIUM,NA 142 mmol/L (140-148)
[2023-04-04 11:22] LABS: ANION GAP 14.5 mmol/L (5.0-14.0)
[2023-04-04] MEDS ORDERED: Potassium Chloride 20 MEQ Tab.ER PO ONE (11:45)
[2023-04-04] MEDS: atorvaSTATin 20 MG Tab PO SCH (20:27)
[2023-04-04] MEDS: Doxazosin 4 MG Tab PO SCH (20:28)
[2023-04-05] MEDS: Vitamin B Complex Tab PO SCH (08:40)
[2023-04-05] MEDS: PARoxetine 20 MG Tab PO SCH (08:40)
[2023-04-05] MEDS: Multivitamins with Iron Tab.Chew PO SCH (08:40)
[2023-04-05] MEDS: Aspirin 81 MG Tab.Chew PO SCH (08:40)
[2023-04-05] MEDS: Docusate Sodium 100 MG Cap PO SCH ×2 (08:40→21:08)
[2023-04-05] MEDS ORDERED: Mirtazapine 15 MG Tab PO SCH (21:00)
[2023-04-05] MEDS: Doxazosin 4 MG Tab PO SCH (21:06)
[2023-04-05] MEDS: atorvaSTATin 20 MG Tab PO SCH (21:08)
[2023-04-06] MEDS: Docusate Sodium 100 MG Cap PO SCH (09:00)
[2023-04-06] MEDS: Aspirin 81 MG Tab.Chew PO SCH (09:00)
[2023-04-06] MEDS: PARoxetine 20 MG Tab PO SCH (09:01)
[2023-04-06] MEDS: Multivitamins with Iron Tab.Chew PO SCH (09:01)
[2023-04-06] MEDS: Vitamin B Complex Tab PO SCH (09:01)
[2023-04-06 11:50] VITALS: BP 108/80; PULSE 94
== END 2023-04-06 13:00 | disposition home or self-care (01) | DRG 683 ==
LOC: JP.ED 14:28 → JP.MS 17:53
PROVIDERS: ADMIT Internal Medicine; ATTEND Internal Medicine
DX: R41.0 Disorientation, unspecified (principal); N17.9 Acute kidney failure, unspecified; I13.0 Hypertensive heart and chronic kidney disease with heart failure and stage 1 through stage 4 chronic kidney disease, or unspecified chronic kidney disease; E11.9 Type 2 diabetes mellitus without complications; I50.42 Chronic combined systolic (congestive) and diastolic (congestive) heart failure; E86.0 Dehydration; F41.9 Anxiety disorder, unspecified; Z20.822 Contact with and (suspected) exposure to COVID-19; I48.91 Unspecified atrial fibrillation; I25.10 Atherosclerotic heart disease of native coronary artery without angina pectoris; H91.90 Unspecified hearing loss, unspecified ear; E78.00 Pure hypercholesterolemia, unspecified; G47.30 Sleep apnea, unspecified; E11.40 Type 2 diabetes mellitus with diabetic neuropathy, unspecified; F32.A Depression, unspecified; M19.90 Unspecified osteoarthritis, unspecified site; E87.6 Hypokalemia; E11.22 Type 2 diabetes mellitus with diabetic chronic kidney disease; N18.32 Chronic kidney disease, stage 3b; I95.9 Hypotension, unspecified; Z79.01 Long term (current) use of anticoagulants; Z86.73 Personal history of transient ischemic attack (TIA), and cerebral infarction without residual deficits; Z95.0 Presence of cardiac pacemaker; Z79.84 Long term (current) use of oral hypoglycemic drugs; Z79.82 Long term (current) use of aspirin; Z79.899 Other long term (current) drug therapy; Z95.1 Presence of aortocoronary bypass graft; Z86.010 Personal history of colon polyps; Z98.84 Bariatric surgery status; Z90.49 Acquired absence of other specified parts of digestive tract; Z98.890 Other specified postprocedural states; Z98.49 Cataract extraction status, unspecified eye; Z90.89 Acquired absence of other organs; Z11.52 Encounter for screening for COVID-19
CPT/HCPCS: 0241U; 36415; 70450; 80048; 80053; 81001; 82550; 83605; 83735; 84145; 84484; 85025; 85027; 85610; 86140; 87086; 93005; 93010; 97110; 97161; 97165; 97530; 99222; 99232; 99238; 99284; A9270-GY; J1815; J3475; J3480; J7030

== ENCOUNTER 2023-06-22 05:18 | Inpatient (IN) | payer MEDICARE ==
[2023-06-22 06:04] LABS: BASOPHILS ABSOLUTE AUTO 0.03 K/uL (0.00-0.10); BASOPHILS PERCENT AUTO 0.4 % (0.1-1.3); EOSINOPHILS ABSOLUTE AUTO 0.16 K/uL (0.00-0.40); EOSINOPHILS PERCENT AUTO 2.3 % (0.0-5.4); HEMATOCRIT 29.8 % (38.4-49.7); IMMATURE GRAN ABSOLUTE AUTO 0.03 K/uL (0.00-0.23); IMMATURE GRAN PERCENT AUTO 0.4 % (0.0-0.7); LYMPHOCYTES ABSOLUTE AUTO 2.47 K/uL (0.8-3.3); LYMPHOCYTES PERCENT AUTO 34.9 % (11.4-47.7); MEAN CORPUSCULAR HEMOGLOBIN 32.7 pg (31.6-35.5); MEAN CORPUSCULAR HGB CONC 33.6 g/dL (31.6-35.5); MEAN CORPUSCULAR VOLUME 97.4 fL (81.4-99.0); MONOCYTES ABSOLUTE AUTO 0.69 K/uL (0.20-0.90); MONOCYTES PERCENT AUTO 9.7 % (3.3-12.6); NEUTROPHILS PERCENT AUTO 52.3 % (40.0-78.1); PLATELET COUNT,PLT 221 K/uL (130-375); RED BLOOD CELL COUNT 3.06 M/uL (4.14-5.76); WHITE BLOOD CELL COUNT,WBC 7.1 K/uL (3.2-11.0)
[2023-06-22] MEDS: Sodium Chloride 0.9% 1,000 ML IV ONE (06:08)
[2023-06-22 06:26] LABS: A/G RATIO 0.7 (1.2-2.2); ALANINE AMINOTRANSFERASE,ALT 21 U/L (12-78); ALBUMIN 2.4 g/dL (3.4-5.0); ALKALINE PHOSPHATASE 113 U/L (46-116); ANION GAP 9.5 mmol/L (5.0-14.0); ASPARTATE AMNIOTRANSFERASE,AST 26 U/L (15-37); BILIRUBIN TOTAL 0.5 mg/dL (0.2-1.0); BLOOD UREA NITROGEN,BUN 22 mg/dL (7-18); CALCIUM 8.7 mg/dL (8.5-10.1); CARBON DIOXIDE,CO2 34 mmol/L (21-32); CHLORIDE,CL 106 mmol/L (100-108); CREATININE 1.9 mg/dL (0.8-1.3); EST CRCL DRUG DOSING (CG) 26.72 mL/min; ESTIMATED GFR 36 mL/min (>60); GLUCOSE RANDOM 103 mg/dL (74-106); POTASSIUM,K 2.5 mmol/L (3.6-5.2); SODIUM,NA 147 mmol/L (140-148)
[2023-06-22] MEDS: Potassium Chloride 20 MEQ Tab.ER PO ONE ×2 (06:32→10:00)
[2023-06-22 07:34] LABS: APPEARANCE,URINE SLIGHTLY CLOUDY (CLEAR); BILIRUBIN,URINE NEGATIVE (NEGATIVE); COLOR,URINE YELLOW (YELLOW); GLUCOSE,URINE NEGATIVE (NEGATIVE); KETONES,URINE NEGATIVE (NEGATIVE); LEUKOCYTE ESTERASE,URINE NEGATIVE (NEGATIVE); NITRITE,URINE NEGATIVE (NEGATIVE); OCCULT BLOOD,URINE NEGATIVE (NEGATIVE); PROTEIN,URINE 30 mg/dL (NEGATIVE); UROBILINOGEN,URINE 0.2 EU/dL (0.2-1.0)
[2023-06-22 07:36] LABS: AMORPHOUS SEDIMENT,URINE RARE; BACTERIA,URINE RARE; EPITHELIAL CELLS,URINE RARE; MUCUS,URINE NOT SEEN; RBC,URINE 0-5 (0-5); WBC,URINE 0-5 (0-5)
[2023-06-22] MEDS: Furosemide 20 MG/2 ML VIAL IVPUSH ONE (07:37)
[2023-06-22] MEDS: Albuterol/Ipratropium 3.0-0.5 MG/3 ML Neb Soln NEB SCH (07:39)
[2023-06-22 09:36] LABS: CORONAVIRUS COVID-19 NAA NEGATIVE (NEGATIVE); INFLUENZA A NAA NEGATIVE (NEGATIVE); INFLUENZA B NAA NEGATIVE (NEGATIVE); RESPIRATORY SYNCYTIAL VIR NAA NEGATIVE (NEGATIVE)
[2023-06-22] MEDS: Potassium Chloride 10 MEQ in Premix Bag 1 BAG IV SCH (09:57)
[2023-06-22] MEDS ORDERED: Sodium Chloride 0.9% 10 ML Syringe FLUSH PRN (10:03)
[2023-06-22] MEDS ORDERED: Polyethylene Glycol 3350 Powder 17 GM Packet PO PRN (10:03)
[2023-06-22] MEDS ORDERED: Ondansetron 4 MG/2 ML SDV IV PRN (10:03)
[2023-06-22] MEDS ORDERED: Acetaminophen 325 MG Tab PO PRN (10:03)
[2023-06-22] MEDS: Carvedilol 3.125 MG Tab PO SCH (11:01)
[2023-06-22] MEDS: PARoxetine 20 MG Tab PO SCH (11:01)
[2023-06-22] MEDS: Aspirin 81 MG Tab.Chew PO SCH (11:01)
[2023-06-22] MEDS: Lisinopril 2.5 MG Tab PO SCH (11:02)
[2023-06-22] MEDS: Docusate Sodium 100 MG Cap PO SCH (11:02)
[2023-06-22] MEDS: Enoxaparin 30 MG/0.3 ML Syringe SUBCUT SCH (11:02)
[2023-06-22] MEDS: Albuterol 0.083% 2.5 MG/3 ML Neb Soln NEB PRN (13:40)
[2023-06-22] MEDS: LORazepam 2 MG/ML SDV IVPUSH ONE (14:59)
[2023-06-22 16:04] LABS: PROTHROMBIN TIME 10.2 sec (9.2-10.6)
[2023-06-22 16:20] VITALS: BP 138/92; PULSE 79
[2023-06-22] MEDS: Warfarin 5 MG Tab PO ONE (16:58)
[2023-06-22] MEDS: Furosemide 40 MG/4 ML VIAL IVPUSH SCH (17:09)
[2023-06-22] MEDS: Enoxaparin 60 MG/0.6 ML Syringe SUBCUT SCH (17:16)
[2023-06-22] MEDS ORDERED: Doxazosin 4 MG Tab PO SCH (21:00)
[2023-06-22] MEDS ORDERED: Ferrous Sulfate 325 MG Tab PO SCH (21:00)
[2023-06-22] MEDS ORDERED: atorvaSTATin 20 MG Tab PO SCH (21:00)
== END 2023-06-22 18:50 | DRG 291 ==
LOC: JP.ED 05:18 → JP.MS 09:09
PROVIDERS: ADMIT Hospitalist; ATTEND Hospitalist
DX: I11.0 Hypertensive heart disease with heart failure (principal); I50.9 Heart failure, unspecified; I13.0 Hypertensive heart and chronic kidney disease with heart failure and stage 1 through stage 4 chronic kidney disease, or unspecified chronic kidney disease; I25.810 Atherosclerosis of coronary artery bypass graft(s) without angina pectoris; E11.9 Type 2 diabetes mellitus without complications; I50.43 Acute on chronic combined systolic (congestive) and diastolic (congestive) heart failure; I48.11 Longstanding persistent atrial fibrillation; E87.6 Hypokalemia; I08.1 Rheumatic disorders of both mitral and tricuspid valves; I25.10 Atherosclerotic heart disease of native coronary artery without angina pectoris; E78.00 Pure hypercholesterolemia, unspecified; G47.00 Insomnia, unspecified; M19.90 Unspecified osteoarthritis, unspecified site; E11.40 Type 2 diabetes mellitus with diabetic neuropathy, unspecified; F41.9 Anxiety disorder, unspecified; F32.A Depression, unspecified; I27.20 Pulmonary hypertension, unspecified; N18.32 Chronic kidney disease, stage 3b; E11.22 Type 2 diabetes mellitus with diabetic chronic kidney disease; Z79.82 Long term (current) use of aspirin; Z79.01 Long term (current) use of anticoagulants; Z79.899 Other long term (current) drug therapy; Z95.1 Presence of aortocoronary bypass graft; Z95.0 Presence of cardiac pacemaker; Z86.010 Personal history of colon polyps; Z86.73 Personal history of transient ischemic attack (TIA), and cerebral infarction without residual deficits; Z90.89 Acquired absence of other organs; Z98.49 Cataract extraction status, unspecified eye; Z98.890 Other specified postprocedural states; Z90.49 Acquired absence of other specified parts of digestive tract; Z98.84 Bariatric surgery status
CPT/HCPCS: 0241U; 36415; 71046; 80053; 81001; 83735; 83880; 84132; 84484; 85025; 85610; 93005; 94640; 96361; 96374; 99285; A9270-GY; J1650; J1940; J2060; J3480; J7030; J7620

== ENCOUNTER 2023-08-04 23:11 | Inpatient (IN) | payer MEDICARE ==
[2023-08-05 00:06] LABS: BASOPHILS ABSOLUTE AUTO 0.05 K/uL (0.00-0.10); BASOPHILS PERCENT AUTO 0.7 % (0.1-1.3); EOSINOPHILS ABSOLUTE AUTO 0.12 K/uL (0.00-0.40); EOSINOPHILS PERCENT AUTO 1.8 % (0.0-5.4); HEMATOCRIT 29.5 % (38.4-49.7); HEMOGLOBIN 9.8 g/dL (12.9-16.9); IMMATURE GRAN ABSOLUTE AUTO 0.02 K/uL (0.00-0.23); IMMATURE GRAN PERCENT AUTO 0.3 % (0.0-0.7); LYMPHOCYTES ABSOLUTE AUTO 2.33 K/uL (0.8-3.3); LYMPHOCYTES PERCENT AUTO 34.1 % (11.4-47.7); MEAN CORPUSCULAR HEMOGLOBIN 32.6 pg (31.6-35.5); MEAN CORPUSCULAR HGB CONC 33.2 g/dL (31.6-35.5); MONOCYTES ABSOLUTE AUTO 0.77 K/uL (0.20-0.90); MONOCYTES PERCENT AUTO 11.3 % (3.3-12.6); NEUTROPHILS ABSOLUTE AUTO 3.55 K/uL (1.0-7.6); NEUTROPHILS PERCENT AUTO 51.8 % (40.0-78.1); PLATELET COUNT,PLT 244 K/uL (130-375); RED BLOOD CELL COUNT 3.01 M/uL (4.14-5.76); WHITE BLOOD CELL COUNT,WBC 6.8 K/uL (3.2-11.0)
[2023-08-05 00:28] LABS: A/G RATIO 0.6 (1.2-2.2); ALANINE AMINOTRANSFERASE,ALT 18 U/L (12-78); ALBUMIN 2.2 g/dL (3.4-5.0); ALKALINE PHOSPHATASE 105 U/L (46-116); ANION GAP 9.3 mmol/L (5.0-14.0); ASPARTATE AMNIOTRANSFERASE,AST 21 U/L (15-37); BILIRUBIN TOTAL 0.4 mg/dL (0.2-1.0); BLOOD UREA NITROGEN,BUN 25 mg/dL (7-18); CALCIUM 8.2 mg/dL (8.5-10.1); CARBON DIOXIDE,CO2 29 mmol/L (21-32); CHLORIDE,CL 106 mmol/L (100-108); CREATININE 1.8 mg/dL (0.8-1.3); EST CRCL DRUG DOSING (CG) 26.69 mL/min; ESTIMATED GFR 38 mL/min (>60); GLUCOSE RANDOM 79 mg/dL (74-106); POTASSIUM,K 3.3 mmol/L (3.6-5.2); PRO B-TYPE NATRIUR PEPT,BNPPRO 16637 pg/mL (5-450); PROTEIN TOTAL,TP 5.8 g/dL (6.4-8.2); SODIUM,NA 141 mmol/L (140-148); TROPONIN I HIGH SENSITIVITY 15.8 pg/mL (<=60.3)
[2023-08-05] MEDS: Sodium Chloride 0.9% 10 ML Syringe FLUSH PRN (01:06)
[2023-08-05 01:34] LABS: APPEARANCE,URINE CLEAR (CLEAR); BILIRUBIN,URINE NEGATIVE (NEGATIVE); COLOR,URINE YELLOW (YELLOW); GLUCOSE,URINE NEGATIVE (NEGATIVE); KETONES,URINE NEGATIVE (NEGATIVE); LEUKOCYTE ESTERASE,URINE NEGATIVE (NEGATIVE); NITRITE,URINE NEGATIVE (NEGATIVE); OCCULT BLOOD,URINE TRACE-INTACT (NEGATIVE); PH,URINE 5.5 (5.0-8.0); PROTEIN,URINE NEGATIVE (NEGATIVE); UROBILINOGEN,URINE 0.2 EU/dL (0.2-1.0)
[2023-08-05] MEDS: QUEtiapine 25 MG Tab PO ONE (01:34)
[2023-08-05 01:52] LABS: AMORPHOUS SEDIMENT,URINE NOT SEEN; BACTERIA,URINE FEW; EPITHELIAL CELLS,URINE FEW; MUCUS,URINE NOT SEEN; RBC,URINE 0-5 (0-5); WBC,URINE 0-5 (0-5)
[2023-08-05] MEDS ORDERED: Melatonin 3 MG Tab PO PRN (02:29)
[2023-08-05] MEDS ORDERED: Acetaminophen 325 MG Tab PO PRN (02:29)
[2023-08-05] MEDS ORDERED: Sennosides/Docusate Sodium 50-8.6 MG Tab PO PRN (02:29)
[2023-08-05] MEDS ORDERED: Ondansetron 4 MG Tab.DIS PO PRN (02:29)
[2023-08-05] MEDS ORDERED: Ondansetron 4 MG/2 ML SDV IV PRN (02:29)
[2023-08-05] MEDS: Potassium Chloride 20 MEQ Tab.ER PO ONE ×2 (02:45→09:40)
[2023-08-05] MEDS: Furosemide 40 MG/4 ML VIAL IVPUSH ONE (02:45)
[2023-08-05 05:00] LABS: HEMATOCRIT 29.5 % (38.4-49.7); HEMOGLOBIN 9.9 g/dL (12.9-16.9); MEAN CORPUSCULAR HEMOGLOBIN 32.4 pg (31.6-35.5); MEAN CORPUSCULAR HGB CONC 33.6 g/dL (31.6-35.5); MEAN CORPUSCULAR VOLUME 96.4 fL (81.4-99.0); RED BLOOD CELL COUNT 3.06 M/uL (4.14-5.76); WHITE BLOOD CELL COUNT,WBC 5.9 K/uL (3.2-11.0)
[2023-08-05 05:15] LABS: ANION GAP 10.2 mmol/L (5.0-14.0); CALCIUM 8.3 mg/dL (8.5-10.1); CREATININE 1.8 mg/dL (0.8-1.3); EST CRCL DRUG DOSING (CG) 27.22 mL/min; POTASSIUM,K 3.2 mmol/L (3.6-5.2)
[2023-08-05] MEDS: Ferrous Sulfate 325 MG Tab PO SCH (08:35)
[2023-08-05] MEDS: Docusate Sodium 100 MG Cap PO SCH (08:35)
[2023-08-05] MEDS: Aspirin 81 MG Tab.Chew PO SCH (08:35)
[2023-08-05] MEDS: Tamsulosin 0.4 MG Cap.ER PO SCH (08:35)
[2023-08-05] MEDS: Vitamin B Complex Tab PO SCH (08:36)
[2023-08-05] MEDS: Metoprolol Succinate 25 MG Tab.ER PO SCH (08:36)
[2023-08-05] MEDS: Magnesium Oxide 400 MG Tab PO SCH (08:36)
[2023-08-05] MEDS: Clopidogrel 75 MG Tab PO SCH (08:36)
[2023-08-05] MEDS: PARoxetine 20 MG Tab PO SCH (08:36)
[2023-08-05 11:40] VITALS: BP 140/82; PULSE 71
[2023-08-05] MEDS: Furosemide 40 MG Tab PO SCH (14:32)
[2023-08-05] MEDS ORDERED: atorvaSTATin 20 MG Tab PO SCH (21:00)
== END 2023-08-05 16:15 | disposition home health service (06) | DRG 291 ==
LOC: JP.ED 23:11 → JP.ICU 08-05 01:30
PROVIDERS: ADMIT Registered Nurse; ATTEND Internal Medicine
DX: I11.0 Hypertensive heart disease with heart failure (principal); I50.9 Heart failure, unspecified; I13.0 Hypertensive heart and chronic kidney disease with heart failure and stage 1 through stage 4 chronic kidney disease, or unspecified chronic kidney disease; I50.43 Acute on chronic combined systolic (congestive) and diastolic (congestive) heart failure; I48.11 Longstanding persistent atrial fibrillation; I25.10 Atherosclerotic heart disease of native coronary artery without angina pectoris; N18.32 Chronic kidney disease, stage 3b; I48.91 Unspecified atrial fibrillation; Z86.73 Personal history of transient ischemic attack (TIA), and cerebral infarction without residual deficits; Z79.02 Long term (current) use of antithrombotics/antiplatelets; Z79.82 Long term (current) use of aspirin; Z79.899 Other long term (current) drug therapy; H91.90 Unspecified hearing loss, unspecified ear; H54.7 Unspecified visual loss; E78.00 Pure hypercholesterolemia, unspecified; G47.30 Sleep apnea, unspecified; E87.6 Hypokalemia; E11.22 Type 2 diabetes mellitus with diabetic chronic kidney disease; I34.0 Nonrheumatic mitral (valve) insufficiency; M19.90 Unspecified osteoarthritis, unspecified site; E11.40 Type 2 diabetes mellitus with diabetic neuropathy, unspecified; I69.320 Aphasia following cerebral infarction; F41.9 Anxiety disorder, unspecified; F32.A Depression, unspecified; Z95.5 Presence of coronary angioplasty implant and graft; Z95.1 Presence of aortocoronary bypass graft; Z98.890 Other specified postprocedural states; Z90.89 Acquired absence of other organs; Z98.49 Cataract extraction status, unspecified eye; Z90.49 Acquired absence of other specified parts of digestive tract; Z98.84 Bariatric surgery status; Z86.010 Personal history of colon polyps; Z95.0 Presence of cardiac pacemaker
CPT/HCPCS: 36415 ×2; 71045 ×2; 80053; 81001; 83735; 83880; 84484; 85025; J3490; 80048; 85027; 93005; A9270-GY; J1940

== ENCOUNTER 2023-09-15 08:45 | Emergency (ER) | payer MEDICARE ==
[2023-09-15 10:09] LABS: APPEARANCE,URINE CLEAR (CLEAR); BILIRUBIN,URINE NEGATIVE (NEGATIVE); COLOR,URINE YELLOW (YELLOW); GLUCOSE,URINE NEGATIVE (NEGATIVE); KETONES,URINE NEGATIVE (NEGATIVE); LEUKOCYTE ESTERASE,URINE NEGATIVE (NEGATIVE); NITRITE,URINE NEGATIVE (NEGATIVE); OCCULT BLOOD,URINE NEGATIVE (NEGATIVE); PH,URINE 5.5 (5.0-8.0); PROTEIN,URINE NEGATIVE (NEGATIVE); UROBILINOGEN,URINE 0.2 EU/dL (0.2-1.0)
[2023-09-15 10:15] LABS: AMORPHOUS SEDIMENT,URINE RARE; BACTERIA,URINE NOT SEEN; EPITHELIAL CELLS,URINE RARE; MUCUS,URINE RARE; RBC,URINE NOT SEEN (0-5); WBC,URINE NOT SEEN (0-5)
[2023-09-15 10:23] LABS: BASOPHILS ABSOLUTE AUTO 0.06 K/uL (0.00-0.10); BASOPHILS PERCENT AUTO 1.1 % (0.1-1.3); EOSINOPHILS ABSOLUTE AUTO 0.21 K/uL (0.00-0.40); EOSINOPHILS PERCENT AUTO 3.7 % (0.0-5.4); HEMATOCRIT 31.7 % (38.4-49.7); HEMOGLOBIN 10.6 g/dL (12.9-16.9); IMMATURE GRAN PERCENT AUTO 0.2 % (0.0-0.7); LYMPHOCYTES ABSOLUTE AUTO 1.69 K/uL (0.8-3.3); LYMPHOCYTES PERCENT AUTO 30.1 % (11.4-47.7); MEAN CORPUSCULAR HEMOGLOBIN 31.7 pg (31.6-35.5); MEAN CORPUSCULAR HGB CONC 33.4 g/dL (31.6-35.5); MEAN CORPUSCULAR VOLUME 94.9 fL (81.4-99.0); MONOCYTES ABSOLUTE AUTO 0.55 K/uL (0.20-0.90); MONOCYTES PERCENT AUTO 9.8 % (3.3-12.6); NEUTROPHILS PERCENT AUTO 55.1 % (40.0-78.1); PLATELET COUNT,PLT 238 K/uL (130-375); RED BLOOD CELL COUNT 3.34 M/uL (4.14-5.76); WHITE BLOOD CELL COUNT,WBC 5.6 K/uL (3.2-11.0)
[2023-09-15 10:26] LABS: IMMATURE GRAN ABSOLUTE AUTO 0.01 K/uL (0.00-0.23)
[2023-09-15 10:44] LABS: A/G RATIO 0.6 (1.2-2.2); ALANINE AMINOTRANSFERASE,ALT 17 U/L (12-78); ALBUMIN 2.6 g/dL (3.4-5.0); ALKALINE PHOSPHATASE 141 U/L (46-116); ASPARTATE AMNIOTRANSFERASE,AST 20 U/L (15-37); BILIRUBIN TOTAL 0.5 mg/dL (0.2-1.0); BLOOD UREA NITROGEN,BUN 21 mg/dL (7-18); CARBON DIOXIDE,CO2 26 mmol/L (21-32); CHLORIDE,CL 107 mmol/L (100-108); ESTIMATED GFR 34 mL/min (>60); GLUCOSE RANDOM 125 mg/dL (74-106); PROTEIN TOTAL,TP 6.8 g/dL (6.4-8.2); SODIUM,NA 143 mmol/L (140-148)
[2023-09-15] MEDS: Furosemide 40 MG Tab PO ONE (11:49)
[2023-09-15] MEDS: Potassium Chloride 20 MEQ Tab.ER PO ONE (12:02)
[2023-09-15 13:21] VITALS: BP 136/88; PULSE 80
== END 2023-09-15 13:12 | disposition home or self-care (01) ==
LOC: JP.ED 08:45
DX: I13.0 Hypertensive heart and chronic kidney disease with heart failure and stage 1 through stage 4 chronic kidney disease, or unspecified chronic kidney disease (principal); I50.9 Heart failure, unspecified; N18.9 Chronic kidney disease, unspecified; E87.6 Hypokalemia; R53.1 Weakness; E11.22 Type 2 diabetes mellitus with diabetic chronic kidney disease; E11.21 Type 2 diabetes mellitus with diabetic nephropathy; I25.10 Atherosclerotic heart disease of native coronary artery without angina pectoris; E78.00 Pure hypercholesterolemia, unspecified; Z90.49 Acquired absence of other specified parts of digestive tract; Z79.899 Other long term (current) drug therapy
CPT/HCPCS: 36415; 71045; 80053; 81001; 85025; 99285; A9270

== ENCOUNTER 2024-04-13 21:55 | Emergency (ER) | payer MEDICARE, BC ==
[2024-04-13 22:28] LABS: BASOPHILS ABSOLUTE AUTO 0.06 K/uL (0.00-0.10); BASOPHILS PERCENT AUTO 0.9 % (0.1-1.3); EOSINOPHILS PERCENT AUTO 7.3 % (0.0-5.4); HEMATOCRIT 40.7 % (38.4-49.7); HEMOGLOBIN 14.1 g/dL (12.9-16.9); IMMATURE GRAN PERCENT AUTO 0.3 % (0.0-0.7); LYMPHOCYTES ABSOLUTE AUTO 1.99 K/uL (0.8-3.3); MEAN CORPUSCULAR HEMOGLOBIN 31.8 pg (31.6-35.5); MEAN CORPUSCULAR HGB CONC 34.6 g/dL (31.6-35.5); MEAN CORPUSCULAR VOLUME 91.7 fL (81.4-99.0); MONOCYTES ABSOLUTE AUTO 0.56 K/uL (0.20-0.90); MONOCYTES PERCENT AUTO 8.2 % (3.3-12.6); NEUTROPHILS ABSOLUTE AUTO 3.74 K/uL (1.0-7.6); NEUTROPHILS PERCENT AUTO 54.3 % (40.0-78.1); PLATELET COUNT,PLT 222 K/uL (130-375); RED BLOOD CELL COUNT 4.44 M/uL (4.14-5.76); WHITE BLOOD CELL COUNT,WBC 6.9 K/uL (3.2-11.0)
[2024-04-13 22:29] LABS: IMMATURE GRAN ABSOLUTE AUTO 0.02 K/uL (0.00-0.23)
[2024-04-13 22:57] LABS: A/G RATIO 0.8 (1.2-2.2); ALANINE AMINOTRANSFERASE,ALT 20 U/L (12-78); ALBUMIN 3.4 g/dL (3.4-5.0); ALKALINE PHOSPHATASE 155 U/L (46-116); ASPARTATE AMNIOTRANSFERASE,AST 23 U/L (15-37); BILIRUBIN TOTAL 0.9 mg/dL (0.2-1.0); BLOOD UREA NITROGEN,BUN 16 mg/dL (7-18); CALCIUM 8.9 mg/dL (8.5-10.1); CARBON DIOXIDE,CO2 26 mmol/L (21-32); CHLORIDE,CL 104 mmol/L (100-108); CREATINE KINASE,CK 56 U/L (39-308); EST CRCL DRUG DOSING (CG) 25.08 mL/min; ESTIMATED GFR 33 mL/min (>60); GLUCOSE RANDOM 109 mg/dL (74-106); POTASSIUM,K 3.5 mmol/L (3.6-5.2); PROTEIN TOTAL,TP 7.5 g/dL (6.4-8.2); SODIUM,NA 140 mmol/L (140-148)
[2024-04-13 22:58] LABS: ANION GAP 13.5 mmol/L (5.0-14.0); C-REACTIVE PROTEIN < 0.50 mg/dL (<0.50)
[2024-04-14 03:02] VITALS: BP 105/60; PULSE 62
[2024-04-16 08:52] LABS: CORONAVIRUS COVID-19 NAA Not Performed (NEGATIVE)
== END 2024-04-14 07:15 | disposition home or self-care (01) ==
LOC: JP.ED 21:55
DX: I13.0 Hypertensive heart and chronic kidney disease with heart failure and stage 1 through stage 4 chronic kidney disease, or unspecified chronic kidney disease (principal); I50.9 Heart failure, unspecified; N18.32 Chronic kidney disease, stage 3b; I25.10 Atherosclerotic heart disease of native coronary artery without angina pectoris; E78.00 Pure hypercholesterolemia, unspecified; M19.90 Unspecified osteoarthritis, unspecified site; E11.42 Type 2 diabetes mellitus with diabetic polyneuropathy; E11.22 Type 2 diabetes mellitus with diabetic chronic kidney disease; Z86.73 Personal history of transient ischemic attack (TIA), and cerebral infarction without residual deficits; Z90.49 Acquired absence of other specified parts of digestive tract; Z98.84 Bariatric surgery status; Z95.1 Presence of aortocoronary bypass graft; Z79.82 Long term (current) use of aspirin; Z79.899 Other long term (current) drug therapy
CPT/HCPCS: 0241U; 36415; 71046; 71046-26; 80053; 82550; 83880; 85025; 86140; 87428-QW; 93005; 93010; 99284; 99285

== ENCOUNTER 2025-02-04 16:26 | Emergency (ER) | payer MEDICARE, BC ==
[2025-02-04 16:53] LABS: BASOPHILS ABSOLUTE AUTO 0.08 K/uL (0.00-0.10); BASOPHILS PERCENT AUTO 1.0 % (0.1-1.3); EOSINOPHILS ABSOLUTE AUTO 0.45 K/uL (0.00-0.40); EOSINOPHILS PERCENT AUTO 5.8 % (0.0-5.4); IMMATURE GRAN PERCENT AUTO 0.1 % (0.0-0.7); LYMPHOCYTES ABSOLUTE AUTO 2.55 K/uL (0.8-3.3); LYMPHOCYTES PERCENT AUTO 32.9 % (11.4-47.7); MONOCYTES ABSOLUTE AUTO 0.66 K/uL (0.20-0.90); MONOCYTES PERCENT AUTO 8.5 % (3.3-12.6); NEUTROPHILS ABSOLUTE AUTO 3.99 K/uL (1.0-7.6); NEUTROPHILS PERCENT AUTO 51.7 % (40.0-78.1); PLATELET COUNT,PLT 185 K/uL (130-375); RED BLOOD CELL COUNT 3.99 M/uL (4.14-5.76); WHITE BLOOD CELL COUNT,WBC 7.7 K/uL (3.2-11.0)
[2025-02-04 16:54] LABS: IMMATURE GRAN ABSOLUTE AUTO 0.01 K/uL (0.00-0.23)
[2025-02-04 17:14] LABS: A/G RATIO 1.0 (1.2-2.2); ALANINE AMINOTRANSFERASE,ALT 41 U/L (12-78); ASPARTATE AMNIOTRANSFERASE,AST 29 U/L (15-37); BILIRUBIN TOTAL 0.5 mg/dL (0.2-1.0); BLOOD UREA NITROGEN,BUN 27 mg/dL (7-18); CARBON DIOXIDE,CO2 28 mmol/L (21-32); CHLORIDE,CL 108 mmol/L (100-108); CREATININE 1.9 mg/dL (0.8-1.3); ESTIMATED GFR 35 mL/min (>60); GLUCOSE RANDOM 123 mg/dL (74-106); POTASSIUM,K 4.6 mmol/L (3.6-5.2); PROTEIN TOTAL,TP 6.6 g/dL (6.4-8.2); SODIUM,NA 142 mmol/L (140-148)
[2025-02-04 18:41] VITALS: BP 142/74; PULSE 62
== END 2025-02-04 19:23 | disposition home or self-care (01) ==
LOC: JP.ED 16:26
DX: I49.9 Cardiac arrhythmia, unspecified (principal); I25.10 Atherosclerotic heart disease of native coronary artery without angina pectoris; I11.0 Hypertensive heart disease with heart failure; I50.9 Heart failure, unspecified; E78.00 Pure hypercholesterolemia, unspecified; M19.90 Unspecified osteoarthritis, unspecified site; E11.42 Type 2 diabetes mellitus with diabetic polyneuropathy; Z90.49 Acquired absence of other specified parts of digestive tract; Z95.5 Presence of coronary angioplasty implant and graft; Z79.82 Long term (current) use of aspirin; Z79.899 Other long term (current) drug therapy
CPT/HCPCS: 36415; 80053; 84484; 85025; 93005; 93010; 99283; 99284